=== PATIENT | female | born 1955 | race Caucasian/White ===

== ENCOUNTER → 2020-02-01 09:53 | Outpatient (BNVA) | payer MEDICARE, MEDICAID, SELFPAY | PROVIDERS: Visit Provider Nurse Practitioner Family | DX: E04.9 Nontoxic goiter, unspecified (principal); E03.9 Hypothyroidism, unspecified; E11.9 Type 2 diabetes mellitus without complications; Z79.4 Long term (current) use of insulin; E55.9 Vitamin D deficiency, unspecified; M25.562 Pain in left knee | CPT/HCPCS: 81001; 82306; 83036 ==

== ENCOUNTER 2020-03-18 09:18 | Outpatient (CLI) | payer MEDICARE, MEDICAID, SELFPAY ==
--- NOTE | 2020-03-18 09:30 | US_ITS ---
WS: [id number] THYROID ULTRASOUND REASON FOR EXAM: thyroid goiter TECHNIQUE: Grayscale and Doppler ultrasound examination of the thyroid gland. FINDINGS: RIGHT: Right thyroid gland measures 5.7 cm x 2.4 cm x 2.5 cm. Right thyroid volume equals 18.1 ccm3. Promine nt cyst is seen in the mid right lobe measures 0.71 x 0.39 x 0.84 cm. A coarse echo texture is noted. A hypoechoic lesion is seen along the inferior pole of the right thyroid measured 0.51 x 5.47 x 0.67 cm LEFT: Left thyroid gland measures 5.6 cm x 1.9 cm x 1.8 cm. Left thyroid volume equals 10.0 ccm3. A solid m ass is seen measured 1.29 x 0.27 x 1.04 cm this lesion appears to be well marginated. Thyroid isthmus: 0.5 mm. US/US thyroid [id number] IMPRESSION: Hyperechoic right left lobe and isthmus. These findings suggest Carmen's dis ease and thyroid antibodies recommended. There is a cyst seen in the right lobe and a adenoma also seen along the inferi or right lobe The left lobe shows the hyperechoic lesion most likely an adenoma well marginat ed and appears to be benign at this time.
== END 2020-03-18 09:19 | disposition home or self-care (01) ==
LOC: US 09:19
PROVIDERS: Family Provider Nurse Practitioner Family; Visit Provider Nurse Practitioner Family
DX: E04.9 Nontoxic goiter, unspecified (principal); E04.1 Nontoxic single thyroid nodule
CPT/HCPCS: 76536

== ENCOUNTER → 2020-04-08 11:32 | Outpatient (BNVA) | payer MEDICARE, MEDICAID, SELFPAY | PROVIDERS: Family Provider Nurse Practitioner Family; Visit Provider Nurse Practitioner Family | DX: E03.9 Hypothyroidism, unspecified (principal); E04.1 Nontoxic single thyroid nodule | CPT/HCPCS: 84439; 84443; 84481; 86376 ==

== ENCOUNTER 2020-04-18 06:00 | Outpatient (RCR) | payer MEDICARE, MEDICAID, SELFPAY | END 2020-05-03 23:59 | disposition home or self-care (01) | LOC: WPT 06:00 | PROVIDERS: Referring Provider Nurse Practitioner Family; Visit Provider Nurse Practitioner Family | DX: G89.29 Other chronic pain (principal); M25.569 Pain in unspecified knee; Z96.659 Presence of unspecified artificial knee joint; M19.90 Unspecified osteoarthritis, unspecified site | CPT/HCPCS: 97110; 97161 ==

== ENCOUNTER 2020-04-25 06:40 | Outpatient (CLI) | payer MEDICARE, MEDICAID, SELFPAY ==
--- NOTE | 2020-04-25 07:00 | US_ITS ---
WS: [id number] Complete ABDOMINAL ULTRASOUND HISTORY: abdominal pain and hernia COMPARISON: None available. Liver: 13.0 cm in length. Liver is normal size. Coarsened echotexture throughout. No mass or bile divya t dilatation. Gallbladder: Gallbladder has been removed. Pancreas: Limited visualization but unremarkable. CBD: 0.5 cm. Right kidney: 8.5 cm x 4.3 cm x 4.1 cm. No mass, cortical thickening or hydronephrosis. Left kidney: 9.1 cm x 4.7 cm x 4.1 cm. No mass, cortical thickening or hydronephrosis. Spleen: Normal size and echogenicity. Abdominal aorta and IVC are within normal limits. No ascites. US/US abdomen complete* [id number] IMPRESSION: 1. Prior cholecystectomy. 2. Mild hepatic steatosis.
== END 2020-04-25 06:41 | disposition home or self-care (01) ==
LOC: RAD 06:42
PROVIDERS: Visit Provider Nurse Practitioner Family
DX: R10.9 Unspecified abdominal pain (principal); K46.9 Unspecified abdominal hernia without obstruction or gangrene; K76.0 Fatty (change of) liver, not elsewhere classified
CPT/HCPCS: 76700

== ENCOUNTER → 2020-05-02 08:59 | Outpatient (BNVA) | payer MEDICARE, MEDICAID, SELFPAY | PROVIDERS: Visit Provider Nurse Practitioner Family | DX: E03.9 Hypothyroidism, unspecified (principal); I10 Essential (primary) hypertension; E78.2 Mixed hyperlipidemia; E11.9 Type 2 diabetes mellitus without complications; Z79.4 Long term (current) use of insulin; E55.9 Vitamin D deficiency, unspecified; L98.9 Disorder of the skin and subcutaneous tissue, unspecified; D49.2 Neoplasm of unspecified behavior of bone, soft tissue, and skin; L91.8 Other hypertrophic disorders of the skin | CPT/HCPCS: 36415; 80053; 80061; 81001; 82306; 83036; 84443; 85025 ==

== ENCOUNTER → 2020-05-07 10:45 | Outpatient (BNVA) | payer MEDICARE, MEDICAID, SELFPAY | PROVIDERS: Visit Provider Nurse Practitioner Family | DX: E11.9 Type 2 diabetes mellitus without complications (principal); Z79.4 Long term (current) use of insulin; R94.4 Abnormal results of kidney function studies; J30.89 Other allergic rhinitis | CPT/HCPCS: 80053; 81001; 82043 ==

== ENCOUNTER → 2020-05-15 08:41 | Outpatient (BNVA) | payer MEDICARE, MEDICAID, SELFPAY | PROVIDERS: Visit Provider Nurse Practitioner Family | DX: E11.9 Type 2 diabetes mellitus without complications (principal); Z79.4 Long term (current) use of insulin | CPT/HCPCS: 80053; 85025 ==

== ENCOUNTER 2020-07-30 15:16 | Emergency (ER) | payer MEDICARE, MEDICAID, SELFPAY ==
[2020-07-30 15:24] VITALS: BP 154/81; PULSE 77; RESP 14; TEMP 37; O2SAT 99; BMI 33.0
--- NOTE | 2020-07-30 15:34 | XR_ITS ---
WS: [id number] Exam: XR ribs LT mn 3V w CXR1V [id number] Date/Time of Exam: 07/30/2020 3:45 PM Reason For Exam: fall/trauma/pain Findings: There is a nondisplaced fracture of the lateral margin of the left fifth rib. No other acute rib frac tures are noted. The lungs are clear and fully inflated. Normal cardiomediastinal structures. XR/XR ribs LT mn 3V w CXR1V [id number] IMPRESSION: 1. Nondisplaced left fifth rib fracture. No pneumothorax.
--- NOTE | 2020-07-30 15:34 | XR_ITS ---
WS: [id number] Exam: XR shoulder LT min 2V* [id number] Date/Time of Exam: 07/30/2020 3:45 PM Reason For Exam: fall/trauma/pain No acute fracture or dislocation. Degenerative change and spurring at the AC joint. Normal soft tissu es. XR/XR shoulder LT min 2V* [id number] IMPRESSION: 1. No fracture or dislocation. 2. AC joint DJD.
--- NOTE | 2020-07-30 15:37 | XR_ITS ---
WS: [id number] Exam: XR hip LT 2-3V wo/w pel* [id number] Date/Time of Exam: 07/30/2020 3:45 PM Reason For Exam: fall/trauma/pain Findings: No fracture or dislocation. Moderate DJD of the joint compartmental narrowing. Hypertrophic bone form ation along the superior lateral acetabulum. Acetabular morphology might predispose the patient to fe moral acetabular impingement. XR/XR hip LT 2-3V wo/w pel* [id number] IMPRESSION: 1. Moderate degenerative change. No fracture or dislocation.
--- NOTE | 2020-07-30 16:03 | ED_ITS ---
HPI - Fall General: Chief Complaint: Fall Stated Complaint: FALL,N/V, RIB PAIN Time Seen by Provider: 07/30/20 15:33 History of Present Illness: HPI Narrative: 64-year-old female presents emergency room after falling yesterday. She tripped on the bumper and landed on her left side on the cement when she fell she did not strike her head she did not lose consciousness she did not strike any objects while she was falling. She presented to her primary care office and seen the nurse practitioner and there was concern for potential injury so she was referred to the emergency room. She has not really taken anything for this. Onset (ago): day(s) Fall from: standing Fall witnessed: yes, by bystander Place fall occurred: home Loss of consciousness: None Prolonged down time: no Symptoms prior to fall: none Context: tripped/slipped Location of injury: chest and pelvis (L hip) Location of injury - extremities: Left: shoulder Severity: moderate Associated symptoms-after fall: Reports chest pain (Pain with palpation and deep inspiration on the left lateral ribs); Denies abdominal pain, confusion, difficulty walking, headache(s), hematuria, lightheadedness, neck pain, numbness, short of breath, vertigo, weakness or other Review of Systems Const: Denies: fever(s), chills, body aches, change in appetite, fatigue or malaise ENMT: Denies: throat pain, ear or mastoid pain, nasal discharge or nasal congestion Card: Reports: chest pain (Pain with palpation and deep inspiration on the left lateral ribs); Denies: lightheadedness Resp: Denies: dyspnea, productive cough or non-productive cough GI: Denies: abdominal pain : Denies: hematuria Musc: Denies: neck pain Skin/Breast: Denies: rash or pruritus Neuro: Denies: headache(s), difficulty walking, vertigo or confusion PFS ED PFSH: Medical History Abdominal pain Changing skin lesion right hand, cryotherapy twice at [facility], no pathology done 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 DM type 2 (diabetes mellitus, type 2) Environmental and seasonal allergies Essential (primary) hypertension Goiter Great toe amputee right foot, 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 History of cholelithiasis History of gallbladder disease Hypothyroid Mixed hyperlipidemia Nonalcoholic hepatosteatosis Osteoarthritis Steatosis of liver Thyroid nodule Vitamin D deficiency Surgical History History of appendectomy History of hysterectomy Social History Smoking and tobacco status: never smoked Second hand smoke exposure: No Smoking risk assessment/counseling performed?: No Alcohol intake: never Desire information about alcohol rehabilitation?: No Counseling given: No Desire information about substance/drug rehabilitation?: No Counseling given: No Physical Exam Const: COMMON NORMALS: no acute distress GENERAL APPEARANCE: cooperative and comfortable ORIENTATION/CONSCIOUSNESS: Yes awake, Yes oriented to person, Yes oriented to place and Yes oriented to time HENMT: COMMON NORMALS: normocephalic, atraumatic and hearing grossly normal bilaterally HEAD & SCALP: normocephalic and atraumatic Eye: COMMON NORMALS: Equal, round and reactive pupils present, EOMs intact bilaterally, conjunctivae normal and no scleral icterus CONJUNCTIVA: Yes conjunctivae normal PUPIL: Yes Equal, round and reactive pupils present Neck/C-Spine: COMMON NORMALS: full ROM, no lymphadenopathy, supple and no JVD Resp: COMMON NORMALS: normal respiratory effort, No retractions, No use of accessory muscles and clear to auscultation bilaterally AUSCULTATION: clear to auscultation bilaterally Cardio: COMMON NORMALS: no JVD, regular rate, regular rhythm and No murmurs present (Cardio) RATE: regular rate RHYTHM: regular rhythm GI: COMMON NORMALS: Soft to palpation and No hepatosplenomegaly present AUSCULTATION: Yes normoactive bowel sounds PALPATION: Yes Soft to palpation, No Tenderness to palpation present (GI), No Guarding due to palpation present (GI) and Yes No hepatosplenomegaly present Extremity: COMMON NORMALS: normal to inspection, capillary refill normal, no clubbing, cyanosis or edema, no calf tenderness and no pedal edema Neuro: SENSORIUM/ORIENTATION: Yes oriented to person, Yes oriented to place and Yes oriented to time Skin: COMMON NORMALS: no rashes or lesions noted GENERAL SKIN EXAM: no rashes or lesions noted Course Vital Signs: Vital signs: Vital Signs Temperature 98.6 F 07/30/20 15:24 Pulse Rate 74 07/30/20 17:39 Respiratory Rate 16 07/30/20 17:39 Blood Pressure 157/79 07/30/20 17:39 Pulse Oximetry 98 07/30/20 17:39 MDM - Fall MDM Narrative: Medical decision making narrative: Reviewed findings with the patient. We will discharge her home follow-up with her primary care doctor as needed can use ice on the left rib fracture as needed. Lab Data: Labs: Lab Results 07/30/20 07/30/20 Range/Units 10:29 10:29 WBC 5.5 (4.0-10.0) 10^3/ uL RBC 4.52 (4.1-5.3) 10^6/u L Hgb 12.2 (11.5-15.3) g/dL Hct 39.9 (37.0-47.0) % MCV 88.3 (81-99) fL MCH 27.0 L (28.0-34.0) pg MCHC 30.6 (30.0-36.0) g/dL RDW 13.5 (12.1-15.1) % Plt Count 226 (130-400) 10^3/c mm MPV 10.9 H (7.4-10.4) fL Neut % (Auto) 64.7 % Lymph % (Auto) 22.2 % [place] % (Auto) 9.0 % Eos % (Auto) 3.1 % Baso % (Auto) 0.6 % Neut # (Auto) 3.53 (1.8-7.7) 10^3/u L Lymph # (Auto) 1.2 (0.8-4.8) 10^3/u L [place] # (Auto) 0.5 (0.2-0.9) 10^3/u L Eos # (Auto) 0.2 (0.0-0.8) 10^3/u L Baso # (Auto) 0.0 (0.0-0.1) 10^3/u L Nucleated RBC % (a uto) 0 % Nucleated RBCs # 0.0 /100WBC Sodium 139 (136-145) mmol/L Potassium 3.8 (3.5-5.1) mmol/L Chloride 102 (98-107) mmol/L Carbon Dioxide 27 (22-29) mmol/L Anion Gap 13.8 (5-19) BUN 24 H (8-23) mg/dL Creatinine 1.3 H (0.5-0.9) mg/dL GFR Calculation 41.0 L (90-130) mL/min Glucose 152 H (65-115) mg/dL Calculated Osmolal ity 295 (285-295) mOsm/k g Calcium 8.9 (8.5-10.5) mg/dL Total Bilirubin 0.2 (0.15-1.2) mg/dL AST 19 (0-32) U/L ALT 21 (0-33) U/L Alkaline Phosphata se 104 (35-105) IU/L Total Protein 7.9 (6.6-8.7) g/dL Albumin 4.2 (3.5-5.2) g/dL Globulin 3.7 (1.3-4.6) g/dL Discharge Plan Discharge Patient Disposition: Home Clinical Impression: Left rib fracture, Fall, Trochanteric bursitis of left hip Condition: Stable Prescriptions: New hydrocodone-acetaminophen 5-325 mg tablet 1 tab PO Q6H PRN (Reason: pain) Qty: 10 RF: 0 diclofenac sodium 75 mg tablet,delayed release (DR/EC) 75 mg PO Q12H PRN (Reason: pain) Qty: 20 RF: 0 No Action pneumococcal 23-adrien ps vaccine 25 mcg/0.5 mL solution 0.5 ml IM ONCE Qty: 1 RF: 0 pneumoc 13-adrien conj-dip cr(PF) 0.5 mL syringe 0.5 ml IM ONCE Qty: 1 RF: 0 (DME) pen needle, diabetic 31 gauge x 5/16 needle See Rx Instructions ea .ROUTE .MEDSUPPLY Qty: 1,200 RF: 0 diclofenac sodium 1 % gel TOPICAL RF: 0 valacyclovir 1 gram tablet 1,000 mg PO DAILY PRN (Reason: fever blister) 30 Days Qty: 30 RF: 3 pantoprazole 40 mg tablet,delayed release (DR/EC) 40 mg PO DAILY Qty: 30 RF: 1 lovastatin 20 mg tablet 20 mg PO DAILY Qty: 30 RF: 2 Tresiba FlexTouch U-200 200 unit/mL (3 mL) insulin pen 15 unit SUBCUT DAILY Qty: 9 RF: 0 (DME) blood sugar diagnostic [Blood Glucose Test] Strip See Rx Instructions .ROUTE .MEDSUPPLY Qty: 100 RF: 0 cetirizine 10 mg tablet 10 mg PO DAILY Qty: 30 RF: 2 levothyroxine 50 mcg tablet 25 mcg PO DAILY Qty: 15 RF: 2 cholecalciferol (vitamin D3) 1,250 mcg (50,000 unit) capsule 50,000 unit PO .weekly 90 Days Qty: 12 RF: 1 nystatin 100,000 unit/gram powder 1 applic TOPICAL BID Qty: 60 RF: 2 lisinopril 40 mg tablet 40 mg PO DAILY Qty: 30 RF: 2 furosemide 20 mg tablet 20 mg PO DAILY Qty: 30 RF: 2 hydrochlorothiazide 25 mg tablet 25 mg PO DAILY Qty: 30 RF: 2 (DME) pen needle, diabetic [BD Ultra-Fine Short Pen Needle] 31 gauge x 5/16 needle See Rx Instructions .ROUTE .MEDSUPPLY Qty: 100 RF: 0 montelukast [Singulair] 10 mg tablet 10 mg PO DAILY 30 Days Qty: 30 RF: 1 sitagliptin 100 mg tablet 100 mg PO DAILY Qty: 30 RF: 2 doxycycline monohydrate 100 mg capsule 100 mg PO BID 14 Days Qty: 28 RF: 0 Jardiance 10 mg tablet 10 mg PO DAILY 30 Days Qty: 30 RF: 1 Discharge Orders: Discharge Order (Routine); Ordered 07/30/20 Ordered By: Alvarado Pelayo Discharge Diet: Usual diet Discharge Activity: Increase activity as tolerated Discharge Date/Time: 07/30/20 17:41 Coding Level of Care Code ED Electric Hoist Operator for Chg Fwd Exam Comprehensive
[2020-07-30 16:26] LABS: Basophils % 0.6 %; Eosinophils # 0.2 10^3/uL (0.0-0.8); Eosinophils % 3.1 %; Hematocrit 39.9 % (37.0-47.0); Hemoglobin 12.2 g/dL (11.5-15.3); Lymphocytes # 1.2 10^3/uL (0.8-4.8); Lymphocytes % 22.2 %; Mean Corpuscular HGB Conc 30.6 g/dL (30.0-36.0); Mean Corpuscular Volume 88.3 fL (81-99); Mean Platelet Volume 10.9 fL (7.4-10.4); Monocytes # 0.5 10^3/uL (0.2-0.9); Neutrophils # 3.53 10^3/uL (1.8-7.7); Neutrophils % 64.7 %; Nucleated Red Blood Cells % 0 %; Platelet Count 226 10^3/cmm (130-400); Red Blood Count 4.52 10^6/uL (4.1-5.3); Red Cell Distribution Width 13.5 % (12.1-15.1); White Blood Count 5.5 10^3/uL (4.0-10.0)
[2020-07-30 16:45] LABS: Alanine Aminotransferase 21 U/L (0-33); Albumin Level 4.2 g/dL (3.5-5.2); Alkaline Phosphatase 104 IU/L (35-105); Anion Gap 13.8 (5-19); Aspartate Amino Transferase 19 U/L (0-32); Blood Urea Nitrogen 24 mg/dL (8-23); Calcium 8.9 mg/dL (8.5-10.5); Carbon Dioxide 27 mmol/L (22-29); Chloride 102 mmol/L (98-107); Globulin 3.7 g/dL (1.3-4.6); Glucose 152 mg/dL (65-115); Osmolality Calculated 295 mOsm/kg (285-295); Potassium 3.8 mmol/L (3.5-5.1); Sodium 139 mmol/L (136-145); Total Bilirubin 0.2 mg/dL (0.15-1.2); Total Protein 7.9 g/dL (6.6-8.7)
[2020-07-30 17:39] VITALS: BP 157/79; PULSE 74; RESP 16; O2SAT 98
== END 2020-07-30 17:41 | disposition home or self-care (01) ==
PROVIDERS: Emergency Provider Family Medicine
DX: S22.32XA Fracture of one rib, left side, initial encounter for closed fracture (principal); M70.62 Trochanteric bursitis, left hip; Z79.4 Long term (current) use of insulin; E11.9 Type 2 diabetes mellitus without complications; I10 Essential (primary) hypertension; E78.2 Mixed hyperlipidemia; W01.0XXA Fall on same level from slipping, tripping and stumbling without subsequent striking against object, initial encounter
CPT/HCPCS: 12345; 71101; 73030; 73502; 80053; 85025; 99282; 99283

== ENCOUNTER → 2020-09-06 11:48 | Outpatient (BNVA) | payer MEDICARE, MEDICAID, SELFPAY | PROVIDERS: Visit Provider Nurse Practitioner Family | DX: I10 Essential (primary) hypertension (principal); E03.9 Hypothyroidism, unspecified; E11.9 Type 2 diabetes mellitus without complications; E55.9 Vitamin D deficiency, unspecified; Z79.4 Long term (current) use of insulin | CPT/HCPCS: 80053; 82306; 83036; 84443 ==

== ENCOUNTER → 2020-12-13 00:01 | Outpatient (BNVA) | payer MEDICARE, MEDICAID, SELFPAY | PROVIDERS: Visit Provider Nurse Practitioner Family | DX: E11.9 Type 2 diabetes mellitus without complications (principal); I10 Essential (primary) hypertension; Z79.4 Long term (current) use of insulin | CPT/HCPCS: 80053; 83036; 85025 ==

== ENCOUNTER → 2021-01-09 14:21 | Outpatient (BNVA) | payer MEDICARE, MEDICAID, SELFPAY | PROVIDERS: PCP Nurse Practitioner Family; Referring Provider Nurse Practitioner Family; Visit Provider Nurse Practitioner Family | DX: R39.11 Hesitancy of micturition (principal); N39.8 Other specified disorders of urinary system; R39.13 Splitting of urinary stream | CPT/HCPCS: 81003 ==

== ENCOUNTER → 2021-03-18 16:16 | Outpatient (BNVA) | payer MEDICARE, MEDICAID, SELFPAY | PROVIDERS: PCP Nurse Practitioner Family; Visit Provider Nurse Practitioner Family | DX: M54.9 Dorsalgia, unspecified (principal); E11.8 Type 2 diabetes mellitus with unspecified complications; M79.10 Myalgia, unspecified site; E11.9 Type 2 diabetes mellitus without complications; E04.1 Nontoxic single thyroid nodule; H66.90 Otitis media, unspecified, unspecified ear; Z79.4 Long term (current) use of insulin; K59.04 Chronic idiopathic constipation | CPT/HCPCS: 80053; 81003; 83735 ==

== ENCOUNTER 2021-03-21 10:46 | Outpatient (CLI) | payer MEDICARE, MEDICAID, SELFPAY ==
--- NOTE | 2021-03-21 11:47 | XR_ITS ---
WS: [id number] Exam: XR lumbar spine 6V w f/e [id number] Date/Time of Exam: 03/21/2021 11:55 AM Reason For Exam: M54.9 - Dorsalgia, unspecified No fracture or dislocation. Disc spaces are relatively well maintained. Mild facet DJD at all levels. Posterior elements are otherwise intact. Slight levoscoliosis. DJD of the SI joints. XR/XR lumbar spine 6V w f/e [id number] IMPRESSION: 1. Mild degenerative changes and slight scoliosis. 2. No fracture or malalignment.
--- NOTE | 2021-03-21 11:47 | XR_ITS ---
WS: [id number] Exam: XR thoracic spine 3V* [id number] Date/Time of Exam: 03/21/2021 11:55 AM Reason For Exam: E11.8 - Type 2 diabetes mellitus with unspecified complic... No fracture or dislocation. Minimal spondylosis. Slightly increased thoracic kyphosis. Minimal dextro scoliosis. Normal paraspinal soft tissues. XR/XR thoracic spine 3V* [id number] IMPRESSION: 1. Mild degenerative changes and slight scoliosis. 2. No fracture or malalignment.
--- NOTE | 2021-03-21 12:00 | MM_ITS ---
WS: [id number] SCREENING DIGITAL MAMMOGRAM WITH CAD HISTORY: Z12.31 - Encounter for screening mammogram for malignant neoplasm of breast COMPARISON: 02/29/2020 and 12/21/2018 Bilateral CC and MLO views submitted. Computer aided detection analyzed. Breast composition: There are scattered areas of fibroglandular density. No suspicious masses, microc alcifications or architectural distortion. MM/[place] [id number] IMPRESSION: BI-RADS: 1-Negative FOLLOW UP: 1 Year Follow-up
== END 2021-03-21 10:47 | disposition home or self-care (01) ==
PROVIDERS: PCP Nurse Practitioner Family; Visit Provider Nurse Practitioner Family
DX: Z12.31 Encounter for screening mammogram for malignant neoplasm of breast (principal); E11.8 Type 2 diabetes mellitus with unspecified complications; M54.5 Low back pain; M54.6 Pain in thoracic spine
CPT/HCPCS: 72072; 72114; 77067

== ENCOUNTER → 2021-05-02 11:27 | Outpatient (BNVA) | payer MEDICARE, MEDICAID, SELFPAY | PROVIDERS: PCP Nurse Practitioner Family; Referring Provider Nurse Practitioner Family; Visit Provider Podiatrist Foot & Ankle Surgery | DX: Z89.419 Acquired absence of unspecified great toe (principal); M19.079 Primary osteoarthritis, unspecified ankle and foot; L30.9 Dermatitis, unspecified | CPT/HCPCS: 73630 ==

== ENCOUNTER → 2021-05-09 11:17 | Outpatient (BNVA) | payer MEDICARE, MEDICAID, SELFPAY | PROVIDERS: PCP Nurse Practitioner Family; Visit Provider Nurse Practitioner Family | DX: E11.9 Type 2 diabetes mellitus without complications (principal); I10 Essential (primary) hypertension; Z79.4 Long term (current) use of insulin; E03.9 Hypothyroidism, unspecified; E04.9 Nontoxic goiter, unspecified; E78.2 Mixed hyperlipidemia | CPT/HCPCS: 36415; 80053; 80061; 81003; 83036; 84443; 85025 ==

== ENCOUNTER → 2021-05-22 11:35 | Outpatient (BNVA) | payer MEDICARE, MEDICAID, SELFPAY | PROVIDERS: PCP Nurse Practitioner Family; Visit Provider Nurse Practitioner Family | DX: E55.9 Vitamin D deficiency, unspecified (principal); M54.9 Dorsalgia, unspecified; M51.34 Other intervertebral disc degeneration, thoracic region; L73.2 Hidradenitis suppurativa; D64.9 Anemia, unspecified | CPT/HCPCS: 82306 ==

== ENCOUNTER → 2021-05-23 11:23 | Outpatient (BNVA) | payer MEDICARE, MEDICAID, SELFPAY | PROVIDERS: PCP Nurse Practitioner Family; Visit Provider Nurse Practitioner Family | DX: M54.9 Dorsalgia, unspecified (principal); E55.9 Vitamin D deficiency, unspecified; M51.34 Other intervertebral disc degeneration, thoracic region; L73.2 Hidradenitis suppurativa; D64.9 Anemia, unspecified | CPT/HCPCS: 82728; 83550 ==

== ENCOUNTER 2021-06-30 14:18 | Outpatient (CLI) | payer MEDICARE, MEDICAID, SELFPAY ==
--- NOTE | 2021-06-30 14:15 | USCV_ITS ---
Anusha Saha Age: 65 Gender: F : 1955 Exam Date: 06/30/2021 14:36 Ordering Phys: Tomasz Villanueva DPM Technologist: [place] [facility] [place]: CIRCULATION RIGHT LEFT Brachial 133.00 mmHg Brachial 137.00 mmHg Pressure (mmHg) Waveform Pressure (mmHg) Waveform 162.00 Above Knee 196.00 163.00 Below Knee 194.00 169.00 DRUG ENFORCEMENT ADMINISTRATION AGENT 164.00 134.00 DPA 155.00 1.23 Ankle/Brachial Index 1.20 77.00 Pre-Exercise Toe Pressure 125.00 0.56 Pre-Exercise Toe/Brachial Index 0.91 FINDINGS Normal resting ABIs bilaterally Slightly diminished resting TBI on the right side Normal TBI on the left side PVR waveforms showing blunting of the dicrotic notch CONCLUSIONS 1. Features of mild peripheral artery disease on the right side possibly involving the distal vessels 2. No significant arterial obstruction on the left side Dr Regina Torres MD [facility] (Electronically Signed) Final Date: 01 July 2021 19:12 S
== END 2021-06-30 14:19 | disposition home or self-care (01) ==
LOC: US 14:21
PROVIDERS: PCP Nurse Practitioner Family; Visit Provider Podiatrist Foot & Ankle Surgery
DX: R09.89 Other specified symptoms and signs involving the circulatory and respiratory systems
CPT/HCPCS: 93923

== ENCOUNTER → 2021-12-01 16:34 | Outpatient (BNVA) | payer MEDICARE, MEDICAID, SELFPAY | PROVIDERS: PCP Nurse Practitioner Family; Visit Provider Internal Medicine Nephrology | DX: N18.9 Chronic kidney disease, unspecified (principal) | CPT/HCPCS: 36415; 80069; 82306; 82310; 82570; 83970; 84156; 85025 ==

== ENCOUNTER → 2021-12-03 10:11 | Outpatient (BNVA) | payer MEDICARE, MEDICAID, SELFPAY | PROVIDERS: PCP Nurse Practitioner Family; Visit Provider Nurse Practitioner Family | DX: B35.1 Tinea unguium (principal); E78.2 Mixed hyperlipidemia; E04.1 Nontoxic single thyroid nodule; E03.9 Hypothyroidism, unspecified; E11.9 Type 2 diabetes mellitus without complications | CPT/HCPCS: 80061; 83036; 84443 ==

== ENCOUNTER 2022-02-24 11:02 | Outpatient (CLI) | payer MEDICARE, MEDICAID, SELFPAY | END 2022-02-24 11:03 | disposition home or self-care (01) | LOC: SPT 11:04 | PROVIDERS: PCP Nurse Practitioner Family; Visit Provider Podiatrist Foot & Ankle Surgery | DX: Z46.89 Encounter for fitting and adjustment of other specified devices (principal); M25.569 Pain in unspecified knee; G89.29 Other chronic pain; Z96.659 Presence of unspecified artificial knee joint; E11.9 Type 2 diabetes mellitus without complications; Z79.4 Long term (current) use of insulin; Z89.419 Acquired absence of unspecified great toe; M21.40 Flat foot [pes planus] (acquired), unspecified foot | CPT/HCPCS: 97760; L3030 ==

== ENCOUNTER → 2022-03-25 10:09 | Outpatient (BNVA) | payer MEDICARE, MEDICAID, SELFPAY | PROVIDERS: PCP Nurse Practitioner Family; Visit Provider Family Medicine | DX: E87.6 Hypokalemia (principal) | CPT/HCPCS: 80048 ==

== ENCOUNTER 2022-04-13 07:49 | Outpatient (CLI) | payer MEDICARE, MEDICAID, SELFPAY ==
--- NOTE | 2022-04-13 07:54 | MM_ITS ---
WS: [id number] BILATERAL SCREENING DIGITAL BREAST TOMOSYNTHESIS MAMMOGRAM WITH CAD HISTORY: SCREENING COMPARISON: 03/21/2021, 02/29/2020 Bilateral CC and MLO views with tomosynthesis and synthetic mammography submitted. Computer aided det ection analyzed. Breast composition: There are scattered areas of fibroglandular density. No suspicious masses, microc alcifications or architectural distortion. MM/[place] [id number] IMPRESSION: BI-RADS: 1-Negative FOLLOW UP: 1 Year Follow-up
== END 2022-04-13 07:50 | disposition home or self-care (01) ==
LOC: RAD 07:51
PROVIDERS: PCP Nurse Practitioner; Visit Provider Nurse Practitioner
DX: Z12.31 Encounter for screening mammogram for malignant neoplasm of breast (principal)
CPT/HCPCS: 77063; 77067

== ENCOUNTER → 2022-04-14 16:33 | Outpatient (BNVA) | payer MEDICARE, MEDICAID, SELFPAY | PROVIDERS: PCP Nurse Practitioner; Visit Provider Nurse Practitioner | DX: R30.0 Dysuria (principal); J01.90 Acute sinusitis, unspecified; B96.89 Other specified bacterial agents as the cause of diseases classified elsewhere; N39.0 Urinary tract infection, site not specified; M54.30 Sciatica, unspecified side | CPT/HCPCS: 81000 ==

== ENCOUNTER → 2022-04-27 08:58 | Outpatient (BNVA) | payer MEDICARE, MEDICAID, SELFPAY | PROVIDERS: PCP Nurse Practitioner; Visit Provider Internal Medicine | DX: E11.65 Type 2 diabetes mellitus with hyperglycemia (principal); E11.22 Type 2 diabetes mellitus with diabetic chronic kidney disease; I10 Essential (primary) hypertension; E78.2 Mixed hyperlipidemia; Z78.0 Asymptomatic menopausal state | CPT/HCPCS: 80048; 82043; 83036; 83721; 84443; 84460 ==

== ENCOUNTER → 2022-08-03 08:15 | Outpatient (BNVA) | payer MEDICARE, MEDICAID, SELFPAY | PROVIDERS: PCP Nurse Practitioner; Visit Provider Nurse Practitioner | DX: E03.9 Hypothyroidism, unspecified (principal); E04.1 Nontoxic single thyroid nodule; I10 Essential (primary) hypertension; E11.9 Type 2 diabetes mellitus without complications; E11.8 Type 2 diabetes mellitus with unspecified complications; E78.2 Mixed hyperlipidemia | CPT/HCPCS: 80048; 82043; 83036; 83721; 84443; 84460 ==

== ENCOUNTER → 2022-11-20 11:02 | Outpatient (BNVA) | payer MEDICARE, MEDICAID, SELFPAY | PROVIDERS: PCP Nurse Practitioner; Visit Provider Nurse Practitioner | DX: E03.9 Hypothyroidism, unspecified (principal); E04.1 Nontoxic single thyroid nodule; E11.9 Type 2 diabetes mellitus without complications; E78.2 Mixed hyperlipidemia; E55.9 Vitamin D deficiency, unspecified; K76.0 Fatty (change of) liver, not elsewhere classified; I10 Essential (primary) hypertension; Z79.4 Long term (current) use of insulin | CPT/HCPCS: 80053; 80069; 82043; 82306; 82542; 83036; 83721; 84443; 85025 ==

== ENCOUNTER → 2023-04-05 12:20 | Outpatient (BNVA) | payer MEDICARE, MEDICAID, SELFPAY | PROVIDERS: PCP Nurse Practitioner; Visit Provider Nurse Practitioner | DX: R35.89 Other polyuria (principal) | CPT/HCPCS: 81000 ==

== ENCOUNTER 2023-04-27 10:08 | Outpatient (CLI) | payer MEDICARE, MEDICAID, SELFPAY ==
--- NOTE | 2023-04-27 10:19 | MM_ITS ---
WS: [id number] SCREENING DIGITAL TOMOSYNTHESIS MAMMOGRAM WITH CAD HISTORY: SCREENING COMPARISON: 04/13/2022 1 03/21/2021 Bilateral CC and MLO with tomosynthesis views submitted. Synthetic mammography reviewed. Computer aid ed detection analyzed. Breast composition: There are scattered areas of fibroglandular density. No suspicious masses, microc alcifications or architectural distortion. MM/[place] [id number] IMPRESSION: BI-RADS: 1-Negative FOLLOW UP: 1 Year Follow-up
== END 2023-04-27 10:09 | disposition home or self-care (01) ==
LOC: RAD 10:13 → MOBLMAM 10:18
PROVIDERS: PCP Nurse Practitioner; Visit Provider Nurse Practitioner
DX: Z12.31 Encounter for screening mammogram for malignant neoplasm of breast (principal)
CPT/HCPCS: 77063; 77067

== ENCOUNTER → 2023-05-19 09:03 | Outpatient (BNVA) | payer MEDICARE, MEDICAID, SELFPAY | PROVIDERS: PCP Nurse Practitioner; Visit Provider Nurse Practitioner | DX: E11.9 Type 2 diabetes mellitus without complications (principal) | CPT/HCPCS: 80053; 80061; 81000; 83036; 85025 ==

== ENCOUNTER 2023-05-24 11:35 | Emergency (ER) | payer MEDICARE, MEDICAID, SELFPAY ==
[2023-05-24 12:03] VITALS: BMI 31.8
[2023-05-24 12:06] VITALS: BP 109/74; PULSE 89; RESP 16; TEMP 36.8; O2SAT 97
--- NOTE | 2023-05-24 12:22 | W.ED.FALL ---
HPI - Fall General: Chief Complaint: Fall Stated Complaint: fell on left hip and lower back Time Seen by Provider: 05/24/23 12:06 Source: patient Mode of arrival: ambulatory Limitations: no limitations History of Present Illness: Patient is a 67-year-old female who presents to the emergency department due to fall earlier today while at school. 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 She reports pain in the left hip, left ankle, and lower back. She notes immediate onset of pain which has been constant since onset. She denies any bruising, numbness, weakness, swelling, or any erythema. She denies taking anything for her pain. Her pain is worsened with ambulating and movement, and she notes that she can feel the pain at rest. She states that she ambulated into the emergency department today, though with a limp. She did not hit her head when she fell, and denies injuries or pain in any other joints. MD complaint: fall Onset (ago): hour(s) Fall from: standing Fall witnessed: yes, by bystander Place fall occurred: school Loss of consciousness: None Prolonged down time: no Symptoms prior to fall: none Context: tripped/slipped Location of injury: back Location of injury - extremities: Left: ankle Severity: severe Severity scale (1-10): 8 Associated symptoms-after fall: Denies abdominal pain, chest pain, difficulty walking, headache(s), lightheadedness or neck pain Review of Systems Const: Denies: fever(s) or chills Card: Denies: chest pain, palpitations, irregular heart rhythm, lightheadedness, syncope or dyspnea on exertion Resp: Denies: dyspnea, productive cough or pain on inspiration GI: Denies: abdominal pain, nausea, vomiting, heartburn or diarrhea : Denies: dysuria Musc: Reports: back pain and joint pain (Left hip, left ankle); Denies: neck pain, extremity pain, extremity swelling, joint swelling, joint warmth or limited range of motion Skin/Breast: Denies: rash Neuro: Denies: headache(s), numbness in extremities, weakness in extremities, sensory changes or difficulty walking PFS ED PFSH: Medical History Abdominal pain Acute bacterial sinusitis Allergic reaction Back pain Breast cancer screening by mammogram Changing skin lesion right hand, cryotherapy twice at [facility], no pathology done Chronic ear infection Chronic idiopathic constipation 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 Diabetic foot DM type 2 (diabetes mellitus, type 2) Encounter for annual wellness exam in Medicare patient Encounter for change or removal of drains Environmental and seasonal allergies Essential (primary) hypertension Fever blister Fungal nail infection Goiter Great toe amputee right foot, 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 Hidradenitis suppurativa History of cholelithiasis History of gallbladder disease Hyponatremia Hypothyroid Injury of knee, right Intermittent urinary stream Intertrigo Mixed hyperlipidemia Muscle ache Nonalcoholic hepatosteatosis Onychomycosis Osteoarthritis Sinusitis, acute maxillary Steatosis of liver Thoracic degenerative disc disease Thyroid nodule Urinary hesitancy Vitamin D deficiency Voiding dysfunction Surgical History History of appendectomy History of hysterectomy Family History Mother Diabetes Stroke Father , IN HIS EARLY 80'S Cancer UNKNOWN CANCER Sister , PANCREATIC Cancer OTHER SISTER HAD LUNG AND THROAT CANCER STILL LIVING Social History Smoking and tobacco status: never smoked Second hand smoke exposure: No Smoking risk assessment/counseling performed?: No Alcohol intake: never Desire information about alcohol rehabilitation?: No Counseling given: No Substance/Drug Use: never Desire information about substance/drug rehabilitation?: No Counseling given: No Physical Exam Const: COMMON NORMALS: no acute distress, average body habitus, patient oriented x3, no limitations, alert and well nourished GENERAL APPEARANCE: cooperative and comfortable ORIENTATION/CONSCIOUSNESS: Yes awake, Yes oriented to person, Yes oriented to place and Yes oriented to time HENMT: COMMON NORMALS: normocephalic and atraumatic HEAD & SCALP: normal to inspection, normocephalic and atraumatic Neck/C-Spine: COMMON NORMALS: full ROM, no lymphadenopathy, supple and no meningeal signs Chest: COMMONS NORMALS: normal inspection of the chest and normal palpation of entire chest wall Resp: COMMON NORMALS: normal respiratory effort and clear to auscultation bilaterally AUSCULTATION: clear to auscultation bilaterally Cardio: COMMON NORMALS: regular rate and regular rhythm RATE: regular rate RHYTHM: regular rhythm : COMMON NORMALS: Yes no CVA tenderness BLADDER/KIDNEY EXAM: Yes no CVA tenderness Back/Pelvis: COMMON NORMALS: no CVA tenderness, thoracic and lumbar spine normal to inspection and thoraco-lumbar ROM normal THORACIC SPINE/UPPER BACK: No thoracic spinal tenderness, No paraspinal muscle tenderness and No paraspinal muscle spasm LUMBAR SPINE/LOWER BACK: Yes lumbar spinal tenderness, No paraspinal muscle tenderness, No paraspinal muscle spasm and Yes straight leg raise negative bilaterally PELVIS: Yes buttock abnormal Buttock abnormal laterality: left Left buttock abnormal details: tenderness and No sciatic notch tenderness SACROILIAC JOINTS: Yes SI joints normal SACRUM: tenderness COCCYX: no tenderness Extremity: COMMON NORMALS: normal to inspection, full ROM, capillary refill normal, no joint enlargement, no clubbing, cyanosis or edema, no calf tenderness and no pedal edema LEFT LOWER EXTREMITY: Yes hip joint Left hip: Yes inspection (No bruising or edema. No shortening or rotation of the hip), Yes palpation (Tenderness to palpation of the posteriolateral hip), Yes ROM (Normal range of motion) and Yes neurovascular exam (Neurovascularly intact) and Yes ankle joint Left ankle: Yes inspection (No bruising, erythema, deformity, or edema; small lateral abrasion), Yes palpation (Tender to palpation over the lateral malleolus), Yes ROM (Normal range of motion) and Yes neurovascular exam (Neurovascularly intact, DP/PT pulses intact) Neuro: COMMON NORMALS: patient oriented x3, moves all extremities, no focal motor deficits, no sensory deficits noted and gait normal SENSORIUM/ORIENTATION: Yes alert, Yes oriented to person, Yes oriented to place and Yes oriented to time MENINGEAL SIGNS: Yes no meningeal signs MOTOR EXAM: 5/5 motor strength present throughout Skin: COMMON NORMALS: no rashes or lesions noted GENERAL SKIN EXAM: no rashes or lesions noted TRAUMA: no lacerations Course Vital Signs: Vital signs: Vital Signs Temperature 98.2 F 05/24/23 12:06 Pulse Rate 89 05/24/23 12:06 Respiratory Rate 16 05/24/23 12:06 Blood Pressure 109/74 05/24/23 12:06 Pulse Oximetry 97 05/24/23 12:06 Oxygen Delivery Me thod Room Air 05/24/23 12:06 MDM - Fall Medical Decision Making XRs negative. Patient is ambulatory without difficulty or assistance. Discussed conservative therapies at home. Return ED precautions given. Otherwise she can follow-up with primary care in 1 to 2 weeks if pain does not seem to be improving. Lab Data Radiology Impressions Ankle X-Ray 05/24/23 12:52 IMPRESSION: No acute findings. Hip/Pelvis X-Ray 05/24/23 12:52 IMPRESSION: No acute findings. Lumbar Spine X-Ray 05/24/23 12:53 IMPRESSION: 1. No acute findings. 2. Mild lower lumbar spine degenerative changes. Sacrum and Coccyx X-Ray 05/24/23 12:53 IMPRESSION: No acute findings. Discharge Plan Discharge Patient Disposition: Home Clinical Impression: Fall from slip, trip, or stumble Qualifiers: Encounter type: initial encounter Qualified Code(s): W01.0XXA - Fall on same level from slipping, tripping and stumbling without subsequent striking against object, initial encounter Contusion of left hip Qualifiers: Encounter type: initial encounter Qualified Code(s): S70.02XA - Contusion of left hip, initial encounter Condition: Stable Prescriptions: No Action zinc 50 mg tablet 50 mg PO DAILY mecobalamin (vitamin B12) 5,000 mcg tablet,disintegrating 1,000 mcg PO DAILY ascorbic acid (vitamin C) 1,000 mg tablet 1,000 mg PO DAILY cholecalciferol (vitamin D3) 25 mcg (1,000 unit) capsule 25 mcg PO DAILY tamsulosin 0.4 mg capsule 0.4 mg PO .at bedtime Qty: 30 12RF hydroxyzine HCl 10 mg tablet 10 mg PO TID (DME) pen needle, diabetic 31 gauge x 5/16 needle See Rx Instructions .ROUTE .MEDSUPPLY Qty: 1,200 Rx Instructions: As directed diclofenac sodium 1 % gel 4 g topical QID Qty: 100 2RF Rx Instructions: apply to single knee, ankle, foot; for foot includes sole/toes/top of foot hydrocodone-acetaminophen 10-300 mg tablet 1 tab PO BID PRN Trulicity 0.75 mg/0.5 mL pen injector 0.75 mg SUBCUT .weekly cyclobenzaprine 10 mg tablet 10 mg PO BID PRN (Reason: muscle spasm) Qty: 7 0RF fluconazole [Diflucan] 150 mg tablet 150 mg PO Q3D 12 Days Qty: 4 0RF diclofenac sodium 1 % gel 2 g TOPICAL .four times daily Qty: 100 5RF cetirizine 10 mg tablet See Rx Instructions .ROUTE .COMPLEX Qty: 30 5RF Dose Instruction: TAKE 1 TABLET BY MOUTH EVERY DAY Rx Instructions: TAKE 1 TABLET BY MOUTH EVERY DAY OneTouch Ultra Test Strip See Rx Instructions .ROUTE .COMPLEX Qty: 100 0RF Dose Instruction: CHECK BLOOD SUGAR TWICE DAILY Rx Instructions: CHECK BLOOD SUGAR TWICE DAILY lovastatin 20 mg tablet See Rx Instructions .ROUTE .COMPLEX Qty: 90 0RF Dose Instruction: TAKE 1 TABLET BY MOUTH DAILY Rx Instructions: TAKE 1 TABLET BY MOUTH DAILY levothyroxine 50 mcg tablet See Rx Instructions .ROUTE .COMPLEX Qty: 90 0RF Dose Instruction: TAKE 1 TABLET BY MOUTH DAILY Rx Instructions: TAKE 1 TABLET BY MOUTH DAILY Tresiba FlexTouch U-200 200 unit/mL (3 mL) insulin pen See Rx Instructions .ROUTE .COMPLEX Qty: 27 0RF Dose Instruction: INJECT 60 UNITS UNDER THE SKIN DAILY Rx Instructions: INJECT 60 UNITS UNDER THE SKIN DAILY pen needle, diabetic [BD Ultra-Fine Short Pen Needle] 31 gauge x 5/16 needle See Rx Instructions .ROUTE .COMPLEX Qty: 100 2RF Dose Instruction: USE DIRECTED Rx Instructions: USE DIRECTED ergocalciferol (vitamin D2) 1,250 mcg (50,000 unit) capsule See Rx Instructions .ROUTE .COMPLEX Qty: 12 0RF Dose Instruction: TAKE 1 CAPSULE BY MOUTH WEEKLY Rx Instructions: TAKE 1 CAPSULE BY MOUTH WEEKLY pantoprazole 40 mg tablet,delayed release (DR/EC) See Rx Instructions .ROUTE .COMPLEX Qty: 90 0RF Dose Instruction: TAKE 1 TABLET BY MOUTH DAILY Rx Instructions: TAKE 1 TABLET BY MOUTH DAILY potassium chloride 10 mEq tablet extended release 10 meq PO DAILY Qty: 90 3RF montelukast 10 mg tablet See Rx Instructions .ROUTE .COMPLEX Qty: 90 1RF Dose Instruction: TAKE 1 TABLET BY MOUTH DAILY Rx Instructions: TAKE 1 TABLET BY MOUTH DAILY Jardiance 25 mg tablet See Rx Instructions .ROUTE .COMPLEX Qty: 90 1RF Dose Instruction: TAKE 1 TABLET BY MOUTH DAILY Rx Instructions: TAKE 1 TABLET BY MOUTH DAILY (DME) lancets [OneTouch Delica Plus Lancet] 30 gauge misc See Rx Instructions .ROUTE .COMPLEX Qty: 100 0RF Dose Instruction: USE DIRECTED Rx Instructions: USE DIRECTED Discharge Orders: Discharge ED (Routine); Ordered 05/24/23 Ordered By: Vanessa Aguilar Referrals: Genesis Barraza FNP [Primary Care Provider] - Patient Instructions: Contusion Activity Restrictions/Additional Instructions: As we discussed your x-rays today are normal. You may use ice, heat, and [id number] pain medications as needed for any discomfort. Please follow-up with your primary care provider in 1 to 2 weeks if pain does not seem to be improving. Coding Level of Care Code ED Shuttle [employer] Supervisor for Mariela Carvalho
--- NOTE | 2023-05-24 12:52 | XRR_ITS ---
PROCEDURE INFORMATION: Exam: XR Left Ankle Exam date and time: 05/24/2023 1:11 PM Age: 67 years old Clinical indication: Injury or trauma; Fall; Blunt trauma; Ankle; Left; Additional info: Fall/trauma TECHNIQUE: Imaging protocol: Radiologic exam of the left ankle. Views: 3 or more views. COMPARISON: CR XR foot LT min 3V* [id number] 05/02/2021 11:34 AM FINDINGS: Bones/joints: No acute fracture or dislocation. Joints are maintained. Minimal spurring of the anterior tibial plafond. Posterior and plantar calcaneal enthesophytes. Soft tissues: Unremarkable. XR/XR ankle LT min 3V* [id number] IMPRESSION: No acute findings.
--- NOTE | 2023-05-24 12:52 | XRR_ITS ---
PROCEDURE INFORMATION: Exam: XR Left Hip Exam date and time: 05/24/2023 1:10 PM Age: 67 years old Clinical indication: Injury or trauma; Fall; Blunt trauma (contusions or hematomas); Left; Hip; Additional info: Fall/trauma/1 view pelvis too TECHNIQUE: Imaging protocol: Radiologic exam of the left hip. Views: 2 or 3 views hip with pelvis when performed. COMPARISON: 1. CR XR hip LT 2-3V wo/w pel* [id number] 07/30/2020 3:44 PM 2. CR XR sacrum coccyx min 2V [id number] 05/24/2023 1:06 PM 3. CR XR lumbar spine 2-3V* [id number] 05/24/2023 1:03 PM FINDINGS: Bones/joints: No acute fracture or dislocation. Mineralization is normal. Mild degenerative change. Soft tissues: Unremarkable. XR/XR hip LT 2-3V wo/w pel* [id number] IMPRESSION: No acute findings.
--- NOTE | 2023-05-24 12:53 | XRR_ITS ---
PROCEDURE INFORMATION: Exam: XR Lumbosacral Spine Exam date and time: 05/24/2023 1:03 PM Age: 67 years old Clinical indication: Injury or trauma; Fall; Blunt trauma (contusions or hematomas); Additional info: Fall/trauma TECHNIQUE: Imaging protocol: Radiologic exam of the lumbosacral spine. Views: 2 or 3 views. COMPARISON: CR XR lumbar spine 6V w f/e [id number] 03/21/2021 12:01 PM FINDINGS: Bones/joints: No acute fracture. Slight levoconvex curvature. No spondylolisthesis. Mild intervertebral disc space narrowing and osteophyte formation from L3-S1. Lower lumbar spine facet arthrosis. Soft tissues: Unremarkable. Intraperitoneal space: Right upper abdomen surgical clips. Vasculature: Mild aortoiliac atherosclerotic calcification. XR/XR lumbar spine 2-3V* [id number] IMPRESSION: 1. No acute findings. 2. Mild lower lumbar spine degenerative changes.
--- NOTE | 2023-05-24 12:53 | XRR_ITS ---
PROCEDURE INFORMATION: Exam: XR Sacrum and Coccyx, 2 or More Views Exam date and time: 05/24/2023 1:06 PM Age: 67 years old Clinical indication: Injury or trauma; Fall; Blunt trauma (contusions or hematomas); Additional info: Fall/trauma TECHNIQUE: Imaging protocol: XR of the sacrum and coccyx, 2 or more views. COMPARISON: 1. CR XR lumbar spine 2-3V* [id number] 05/24/2023 1:03 PM 2. CR XR hip LT 2-3V wo/w pel* [id number] 07/30/2020 3:44 PM 3. CR XR lumbar spine 6V w f/e [id number] 03/21/2021 12:01 PM FINDINGS: Bones/joints: No evidence of acute fracture. Suboptimal visualization of the coccyx from superimposed structures. Mild degenerative changes of the lower lumbar spine, sacroiliac joints, pubic symphysis, and hips. Soft tissues: Unremarkable. XR/XR sacrum coccyx min 2V [id number] IMPRESSION: No acute findings.
[2023-05-24] MEDS: acetaminophen 500 mg Tablet 1000 MG PO (13:41)
== END 2023-05-24 13:47 | disposition home or self-care (01) ==
PROVIDERS: Emergency Provider Physician Assistant; PCP Nurse Practitioner
DX: S70.02XA Contusion of left hip, initial encounter (principal); Z79.85 Long-term (current) use of injectable non-insulin antidiabetic drugs; Z79.4 Long term (current) use of insulin; W03.XXXA Other fall on same level due to collision with another person, initial encounter; Y92.219 Unspecified school as the place of occurrence of the external cause; Y99.0 Civilian activity done for income or pay; E11.9 Type 2 diabetes mellitus without complications; I10 Essential (primary) hypertension; E78.2 Mixed hyperlipidemia
CPT/HCPCS: 72100; 72220; 73502; 73610; 99284

== ENCOUNTER → 2023-05-27 15:04 | Outpatient (BNVA) | payer MEDICARE, MEDICAID, SELFPAY | PROVIDERS: PCP Nurse Practitioner; Visit Provider Nurse Practitioner Family | DX: M25.532 Pain in left wrist (principal); Z91.81 History of falling | CPT/HCPCS: 73110 ==

== ENCOUNTER → 2023-08-10 11:19 | Outpatient (BNVA) | payer MEDICARE, MEDICAID, SELFPAY | PROVIDERS: PCP Nurse Practitioner; Visit Provider Nurse Practitioner Family | DX: R11.2 Nausea with vomiting, unspecified (principal); K52.9 Noninfective gastroenteritis and colitis, unspecified | CPT/HCPCS: 80053; 81003; 85025 ==

== ENCOUNTER → 2023-09-03 08:56 | Outpatient (BNVA) | payer MEDICARE, MEDICAID, SELFPAY | PROVIDERS: PCP Nurse Practitioner; Visit Provider Nurse Practitioner Family | DX: E11.9 Type 2 diabetes mellitus without complications (principal); E78.2 Mixed hyperlipidemia | CPT/HCPCS: 80053; 80061; 81003; 83036; 85025 ==

== ENCOUNTER 2023-09-24 12:18 | Emergency (ER) | payer MEDICARE, MEDICAID, SELFPAY ==
[2023-09-24 12:28] VITALS: BP 124/84; PULSE 88; RESP 16; TEMP 36.6; O2SAT 96; BMI 30.1
[2023-09-24 13:14] LABS: Basophils # 0.1 10^3/uL (0.0-0.1); Basophils % 0.6 %; Eosinophils # 0.5 10^3/uL (0.0-0.8); Eosinophils % 5.6 %; Hematocrit 42.7 % (36-47); Lymphocytes # 1.9 10^3/uL (0.8-4.8); Lymphocytes % 22.1 %; Mean Corpuscular HGB Conc 31.6 g/dL (30-55); Mean Corpuscular Hemoglobin 28.2 pg (27-33); Mean Corpuscular Volume 89.3 fl (85-98); Mean Platelet Volume 10.5 fL (7.4-10.4); Monocytes # 0.7 10^3/uL (0.2-0.9); Monocytes % 8.6 %; Neutrophils # 5.27 10^3/uL (1.8-7.7); Neutrophils % 62.7 %; Nucleated Red Blood Cells % 0 %; Platelet Count 214 10^3/cmm (157-399); Red Blood Count 4.78 10^6/uL (3.85-5.65); Red Cell Distribution Width 13.9 % (12.1-15.1); White Blood Count 8.39 10^3/uL (3.29-11.43)
[2023-09-24 13:34] LABS: Alanine Aminotransferase 11 U/L (0-33); Alkaline Phosphatase 107 U/L (35-105); Aspartate Amino Transferase 12 U/L (0-32); Chloride 102 mmol/L (98-107); Globulin 3.7 g/dL (1.3-4.6); Glucose 114 mg/dL (65-115); Lipase 36 U/L (13-60); Potassium 4.1 mmol/L (3.5-5.1); Sodium 142 mmol/L (136-145); Total Protein 7.7 g/dL (6.6-8.7)
[2023-09-24 13:55] LABS: Blood Urea Nitrogen 16 mg/dL (8-23); Glomerular Filtration Rate 49.2 mL/min (90-130); Osmolality Calculated 296 mOsm/kg (285-295); Total Bilirubin 0.5 mg/dL (0.15-1.2)
--- NOTE | 2023-09-24 14:06 | W.ED.ABDPA2 ---
HPI - Abdominal Pain General: Chief Complaint: Abdominal Pain Stated Complaint: cramping, trouble going to the bathroom Time Seen by Provider: 09/24/23 14:05 Source: patient Mode of arrival: ambulatory History of Present Illness: 67-year-old female presents emergency room with complaint of abdominal pain patient states she had constipation for the last 4 days. Nausea and vomiting when she eats no hematochezia melena hematemesis cough cramps no recent antibiotics. No dysuria urgency or frequency MD elicited complaint: abdominal pain Associated Symptoms: Denies chills, dysuria and fever(s) Review of Systems Const: Denies: fever(s) or chills Card: Denies: chest pain Resp: Denies: dyspnea GI: Denies: abdominal pain : Denies: dysuria, urinary frequency or urinary urgency Musc: Denies: neck pain or back pain Skin/Breast: Denies: rash PFSH ED PFSH: Medical History Acute UTI Nausea & vomiting Gastroenteritis DDD (degenerative disc disease), cervical Cervical radiculopathy Hypokalemia Hyponatremia Encounter for change or removal of drains Allergic reaction Onychomycosis Thoracic degenerative disc disease Sinusitis, acute maxillary Chronic idiopathic constipation Muscle ache Chronic ear infection Back pain Fungal nail infection Intermittent urinary stream Urinary hesitancy Encounter for annual wellness exam in Medicare patient Diabetic foot Breast cancer screening by mammogram Voiding dysfunction Intertrigo Acute bacterial sinusitis Environmental and seasonal allergies Steatosis of liver Nonalcoholic hepatosteatosis Mixed hyperlipidemia Changing skin lesion right hand, cryotherapy twice at [facility], no pathology done Abdominal pain Thyroid nodule 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 Hidradenitis suppurativa Fever blister Injury of knee, right Vitamin D deficiency Hypothyroid Goiter Essential (primary) hypertension DM type 2 (diabetes mellitus, type 2) Osteoarthritis Great toe amputee right foot, 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 History of gallbladder disease History of cholelithiasis Surgical History History of hysterectomy History of appendectomy Family History Mother Diabetes Stroke Father , IN HIS EARLY 80'S Cancer UNKNOWN CANCER Sister , PANCREATIC Cancer OTHER SISTER HAD LUNG AND THROAT CANCER STILL LIVING Social History Smoking and tobacco/nicotine status: never used tobacco/nicotine Second hand smoke exposure: No Alcohol intake: never Substance/Drug Use: never Physical Exam Const: GENERAL APPEARANCE: cooperative and comfortable ORIENTATION/CONSCIOUSNESS: Yes awake, Yes oriented to person, Yes oriented to place and Yes oriented to time HENMT: COMMON NORMALS: normocephalic, atraumatic and hearing grossly normal bilaterally HEAD & SCALP: normocephalic and atraumatic Resp: COMMON NORMALS: normal respiratory effort, No retractions, No use of accessory muscles and clear to auscultation bilaterally AUSCULTATION: clear to auscultation bilaterally Cardio: COMMON NORMALS: regular rate, regular rhythm and No murmurs present (Cardio) RATE: regular rate RHYTHM: regular rhythm GI: COMMON NORMALS: No hepatosplenomegaly present AUSCULTATION: Yes normoactive bowel sounds PALPATION: Yes Tenderness to palpation present (GI) (Right side abdomen), No Guarding due to palpation present (GI) and Yes No hepatosplenomegaly present Extremity: COMMON NORMALS: normal to inspection, capillary refill normal, no clubbing, cyanosis or edema, no calf tenderness and no pedal edema Neuro: SENSORIUM/ORIENTATION: Yes oriented to person, Yes oriented to place and Yes oriented to time Skin: COMMON NORMALS: no rashes or lesions noted GENERAL SKIN EXAM: no rashes or lesions noted Course Vital Signs: Vital signs: Vital Signs Temperature 97.8 F 09/24/23 12:28 Pulse Rate 88 09/24/23 12:28 Respiratory Rate 16 09/24/23 12:28 Blood Pressure 124/84 09/24/23 12:28 Pulse Oximetry 96 09/24/23 12:28 Oxygen Delivery Me thod Room Air 09/24/23 12:28 MDM - Abdominal Pain Medical Decision Making Labs and imaging reviewed. Large amount of stool retained in the right hemicolon. Start lactulose 1 dose every 2 hours till desired results achieved. Return if is further problems. Medical Records I reviewed the patient's medical records. Lab Data I reviewed the patient's lab results. 09/24/23 12:58 09/24/23 12:58 Labs/Radiology: Laboratory Results WBC 8.39 10^3/uL (3.29-11.43) 09/24/23 12:58 RBC 4.78 10^6/uL (3.85-5.65) 09/24/23 12:58 Hgb 13.50 g/dL (11.27-16.99) 09/24/23 12:58 Hct 42.7 % (36-47) 09/24/23 12:58 MCV 89.3 fl (85-98) 09/24/23 12:58 MCH 28.2 pg (27-33) 09/24/23 12:58 MCHC 31.6 g/dL (30-55) 09/24/23 12:58 RDW 13.9 % (12.1-15.1) 09/24/23 12:58 Plt Count 214 10^3/cmm (157-399) 09/24/23 12:58 MPV 10.5 fL (7.4-10.4) H 09/24/23 12:58 Neut % (Auto) 62.7 % 09/24/23 12:58 Lymph % (Auto) 22.1 % 09/24/23 12:58 [place] % (Auto) 8.6 % 09/24/23 12:58 Eos % (Auto) 5.6 % 09/24/23 12:58 Baso % (Auto) 0.6 % 09/24/23 12:58 Neut # (Auto) 5.27 10^3/uL (1.8-7.7) 09/24/23 12:58 Lymph # (Auto) 1.9 10^3/uL (0.8-4.8) 09/24/23 12:58 [place] # (Auto) 0.7 10^3/uL (0.2-0.9) 09/24/23 12:58 Eos # (Auto) 0.5 10^3/uL (0.0-0.8) 09/24/23 12:58 Baso # (Auto) 0.1 10^3/uL (0.0-0.1) 09/24/23 12:58 Nucleated RBC % (auto) 0 % 09/24/23 12:58 Nucleated RBCs # 0.0 /100WBC 09/24/23 12:58 Sodium 142 mmol/L (136-145) 09/24/23 12:58 Potassium 4.1 mmol/L (3.5-5.1) 09/24/23 12:58 Chloride 102 mmol/L (98-107) 09/24/23 12:58 Carbon Dioxide 28 mmol/L (22-29) 09/24/23 12:58 Anion Gap 16.1 (5-19) 09/24/23 12:58 BUN 16 mg/dL (8-23) 09/24/23 12:58 Creatinine 1.1 mg/dL (0.5-0.9) H 09/24/23 12:58 GFR Calculation 49.2 mL/min (90-130) L 09/24/23 12:58 Glucose 114 mg/dL (65-115) 09/24/23 12:58 Calculated Osmolality 296 mOsm/kg (285-295) H 09/24/23 12:58 Calcium 10.0 mg/dL (8.5-10.5) 09/24/23 12:58 Total Bilirubin 0.5 mg/dL (0.15-1.2) 09/24/23 12:58 AST 12 U/L (0-32) 09/24/23 12:58 ALT 11 U/L (0-33) 09/24/23 12:58 Alkaline Phosphatase 107 U/L (35-105) H 09/24/23 12:58 Total Protein 7.7 g/dL (6.6-8.7) 09/24/23 12:58 Albumin 4.0 g/dL (3.5-5.2) 09/24/23 12:58 Globulin 3.7 g/dL (1.3-4.6) 09/24/23 12:58 Lipase 36 U/L (13-60) 09/24/23 12:58 All radiology interpretation(s) finalized by discharge Discharge Plan Discharge Patient Disposition: Home Clinical Impression: Constipation Condition: Stable Prescriptions: New lactulose 10 gram/15 mL (15 mL) solution 30 g PO Q2H 1 Days Qty: 540 0RF Rx Instructions: until desired laxative effect No Action zinc 50 mg tablet 50 mg PO DAILY mecobalamin (vitamin B12) 5,000 mcg tablet,disintegrating 1,000 mcg PO DAILY ascorbic acid (vitamin C) 1,000 mg tablet 1,000 mg PO DAILY cholecalciferol (vitamin D3) 25 mcg (1,000 unit) capsule 25 mcg PO DAILY tamsulosin 0.4 mg capsule 0.4 mg PO .at bedtime Qty: 30 12RF hydroxyzine HCl 10 mg tablet 10 mg PO TID (DME) pen needle, diabetic 31 gauge x 5/16 needle See Rx Instructions .ROUTE .MEDSUPPLY Qty: 1,200 Rx Instructions: As directed diclofenac sodium 1 % gel 4 g topical QID Qty: 100 2RF Rx Instructions: apply to single knee, ankle, foot; for foot includes sole/toes/top of foot Trulicity 0.75 mg/0.5 mL pen injector 0.75 mg SUBCUT .weekly cyclobenzaprine 10 mg tablet 10 mg PO BID PRN (Reason: muscle spasm) Qty: 7 0RF ondansetron HCl 4 mg tablet 4 mg PO Q8H PRN (Reason: nausea and vomiting) 5 Days Qty: 20 0RF diclofenac sodium 1 % gel 2 g TOPICAL .four times daily Qty: 100 5RF cetirizine 10 mg tablet See Rx Instructions .ROUTE .COMPLEX Qty: 30 5RF Dose Instruction: TAKE 1 TABLET BY MOUTH EVERY DAY Rx Instructions: TAKE 1 TABLET BY MOUTH EVERY DAY OneTouch Ultra Test Strip See Rx Instructions .ROUTE .COMPLEX Qty: 100 0RF Dose Instruction: CHECK BLOOD SUGAR TWICE DAILY Rx Instructions: CHECK BLOOD SUGAR TWICE DAILY levothyroxine 50 mcg tablet See Rx Instructions .ROUTE .COMPLEX Qty: 90 0RF Dose Instruction: TAKE 1 TABLET BY MOUTH DAILY Rx Instructions: TAKE 1 TABLET BY MOUTH DAILY Tresiba FlexTouch U-200 200 unit/mL (3 mL) insulin pen See Rx Instructions .ROUTE .COMPLEX Qty: 27 0RF Dose Instruction: INJECT 60 UNITS UNDER THE SKIN DAILY Rx Instructions: INJECT 60 UNITS UNDER THE SKIN DAILY pen needle, diabetic [BD Ultra-Fine Short Pen Needle] 31 gauge x 5/16 needle See Rx Instructions .ROUTE .COMPLEX Qty: 100 2RF Dose Instruction: USE DIRECTED Rx Instructions: USE DIRECTED ergocalciferol (vitamin D2) 1,250 mcg (50,000 unit) capsule See Rx Instructions .ROUTE .COMPLEX Qty: 12 0RF Dose Instruction: TAKE 1 CAPSULE BY MOUTH WEEKLY Rx Instructions: TAKE 1 CAPSULE BY MOUTH WEEKLY pantoprazole 40 mg tablet,delayed release (DR/EC) See Rx Instructions .ROUTE .COMPLEX Qty: 90 0RF Dose Instruction: TAKE 1 TABLET BY MOUTH DAILY Rx Instructions: TAKE 1 TABLET BY MOUTH DAILY potassium chloride 10 mEq tablet extended release 10 meq PO DAILY Qty: 90 3RF Jardiance 25 mg tablet See Rx Instructions .ROUTE .COMPLEX Qty: 90 0RF Dose Instruction: TAKE 1 TABLET BY MOUTH DAILY Rx Instructions: TAKE 1 TABLET BY MOUTH DAILY (DME) lancets [OneTouch Delica Plus Lancet] 30 gauge misc See Rx Instructions .ROUTE .COMPLEX Qty: 100 0RF Dose Instruction: USE DIRECTED Rx Instructions: USE DIRECTED montelukast 10 mg tablet See Rx Instructions .ROUTE .COMPLEX Qty: 90 0RF Dose Instruction: TAKE 1 TABLET BY MOUTH DAILY Rx Instructions: TAKE 1 TABLET BY MOUTH DAILY lovastatin 20 mg tablet See Rx Instructions .ROUTE .COMPLEX Qty: 90 0RF Dose Instruction: TAKE 1 TABLET BY MOUTH DAILY Rx Instructions: TAKE 1 TABLET BY MOUTH DAILY Discharge Orders: Discharge ED (Routine); Ordered 09/24/23 Ordered By: Alvarado Pelayo Referrals: SEBASTIAN Garza, REY [Primary Care Provider] - Discharge Diet: Usual diet Discharge Activity: Increase activity as tolerated Patient Instructions: Constipation (ED), Opioid Safety, Pain Management Activity Restrictions/Additional Instructions: Thank you for choosing [facility] for your healthcare needs today. Please realize this is an emergency room and that we are providing you with a medical screening exam and this may not be complete and all inclusive of all the testing and or work up that you may need to determine your ailment or severity of your illness. It is very important that you follow up as instructed or that you return to the Emergency Department should you have concerns or if your condition changes or worsens in any way. You are seen today for abdominal pain your laboratory studies did not show significant abnormality flat and upright of your abdomen showed large amount of retained stool in the right portion of your colon. I believe this is what is causing most of your discomfort. Recommend you take lactulose 1 dose every 2 hours until desired results are achieved. As this stimulates your bowel that will cause considerable amount of cramping. Coding Level of Care Code ED Finishing Supervisor [employer] for Mariela Carvalho
--- NOTE | 2023-09-24 14:06 | XRR_ITS ---
PROCEDURE INFORMATION: Exam: XR Abdomen Exam date and time: 09/24/2023 2:16 PM Age: 67 years old Clinical indication: Abdominal pain; Generalized; Patient HX: Abd. Pain, cramping TECHNIQUE: Imaging protocol: Radiologic exam of the abdomen. Views: 2 Views. Upright and supine views. COMPARISON: CR XR hip LT 2-3V wo/w pel* [id number] 05/24/2023 1:10 PM FINDINGS: Lungs: Clear lungs. Pleural spaces: No pleural effusion. Heart/Mediastinum: Cardiomediastinal contours are unremarkable. Gastrointestinal tract: Large amount of colonic stool. Intraperitoneal space: Right upper quadrant surgical clip. Bones/joints: Moderate degenerative change right shoulder. Thoracolumbar spine curvature with mild degenerative change. XR/XR acute abdomen series [id number] IMPRESSION: Large amount of colonic stool. No acute chest disease.
[2023-09-24 14:07] LABS: Anion Gap 16.1 (5-19); Carbon Dioxide 28 mmol/L (22-29)
[2023-09-24 14:46] VITALS: BP 124/84; PULSE 88; RESP 16; TEMP 36.6; O2SAT 96
== END 2023-09-24 14:47 | disposition home or self-care (01) ==
PROVIDERS: Emergency Medicine; Emergency Provider Family Medicine; PCP Nurse Practitioner Family
DX: K59.00 Constipation, unspecified (principal); Z79.85 Long-term (current) use of injectable non-insulin antidiabetic drugs; Z79.4 Long term (current) use of insulin; E78.2 Mixed hyperlipidemia; I10 Essential (primary) hypertension; E11.9 Type 2 diabetes mellitus without complications
CPT/HCPCS: 36415; 74022; 80053; 83690; 85025; 99284

== ENCOUNTER → 2023-11-29 14:07 | Outpatient (BNVA) | payer MEDICARE, MEDICAID, SELFPAY | PROVIDERS: PCP Nurse Practitioner Family; Visit Provider Nurse Practitioner Family | DX: N18.30 Chronic kidney disease, stage 3 unspecified (principal) | CPT/HCPCS: 80069; 82043; 82542; 85007; 85027 ==

== ENCOUNTER → 2024-02-04 09:23 | Outpatient (BNVA) | payer MEDICARE, MEDICAID, SELFPAY | PROVIDERS: PCP Nurse Practitioner Family; Visit Provider Nurse Practitioner Family | DX: M19.90 Unspecified osteoarthritis, unspecified site (principal) | CPT/HCPCS: 73130 ==

== ENCOUNTER 2024-04-04 06:00 | Outpatient (RCR) | payer MEDICARE, MEDICAID, SELFPAY | END 2024-05-03 23:59 | disposition home or self-care (01) | LOC: WPT 06:00 | PROVIDERS: PCP Nurse Practitioner Family; Visit Provider Nurse Practitioner Family | DX: S76.301D Unspecified injury of muscle, fascia and tendon of the posterior muscle group at thigh level, right thigh, subsequent encounter (principal); X58.XXXD Exposure to other specified factors, subsequent encounter | CPT/HCPCS: 97110; 97112; 97140; 97161; 97530 ==

== ENCOUNTER 2024-05-04 06:00 | Outpatient (RCR) | payer MEDICARE, OTHER, MEDICAID, SELFPAY | END 2024-06-03 23:59 | disposition home or self-care (01) | LOC: WPT 06:00 | PROVIDERS: PCP Nurse Practitioner Family; Visit Provider Nurse Practitioner Family | DX: S76.301D Unspecified injury of muscle, fascia and tendon of the posterior muscle group at thigh level, right thigh, subsequent encounter (principal); X58.XXXD Exposure to other specified factors, subsequent encounter | CPT/HCPCS: 97110; 97112; 97530 ==

== ENCOUNTER 2024-05-04 13:45 | Outpatient (CLI) | payer MEDICARE, MEDICAID, OTHER, SELFPAY ==
--- NOTE | 2024-05-04 13:48 | MM_ITS ---
WS: [email or web address] Bilateral screening 3D tomosynthesis digital mammogram, 05/04/2024 Clinical Data: SCREENING Comparison: 04/27/2023, 04/13/2022, 03/21/2021, 02/29/2020, 12/21/2018, 03/15/2013, 09/08/2011, 07/03/2009. Findings: The breast parenchymal pattern shows fibroglandular tissue. No spiculated masses or clustered calcifi cations are seen. There are no secondary signs of carcinoma. There are mole markers on both breasts. MM/[place] [id number] Impression: 1. Negative bilateral mammogram unchanged. 2. Recommend annual screening mammograms. BIRADS: 1-Negative FOLLOW UP: 1 Year Follow-up The CAD checkering machine operator was used.
== END 2024-05-04 13:46 | disposition home or self-care (01) ==
LOC: RAD 13:45
PROVIDERS: PCP Nurse Practitioner Family; Visit Provider Nurse Practitioner Family
DX: Z12.31 Encounter for screening mammogram for malignant neoplasm of breast (principal); R92.323 Mammographic fibroglandular density, bilateral breasts
CPT/HCPCS: 77063; 77067

== ENCOUNTER → 2024-05-26 08:23 | Outpatient (BNVA) | payer MEDICARE, OTHER, MEDICAID, SELFPAY | PROVIDERS: PCP Nurse Practitioner Family; Visit Provider Nurse Practitioner Family | DX: Z89.411 Acquired absence of right great toe (principal); M77.31 Calcaneal spur, right foot; S99.921A Unspecified injury of right foot, initial encounter; X58.XXXA Exposure to other specified factors, initial encounter | CPT/HCPCS: 73630 ==

== ENCOUNTER 2024-06-04 06:00 | Outpatient (RCR) | payer MEDICARE, OTHER, MEDICAID, SELFPAY | END 2024-06-15 23:59 | disposition home or self-care (01) | LOC: WPT 06:00 | PROVIDERS: PCP Nurse Practitioner Family; Visit Provider Nurse Practitioner Family | DX: M25.561 Pain in right knee (principal) | CPT/HCPCS: 97110; 97112; 97530 ==

== ENCOUNTER 2024-06-09 11:51 | Outpatient (CLI) | payer OTHER, SELFPAY ==
--- NOTE | 2024-06-09 11:55 | XR_ITS ---
WS: [email or web address] Examination: XR elbow RT min 3V* [id number] Reason for Exam: S53.401A - Unspecified sprain of right elbow, initial enc... Date: 06/09/2024 Comparison: None. Findings: There is no abnormal fat pad There is no bony destruction. There is no fracture or dislocation Chronic changes are identified with spurring at the olecranon as well as the coronoid process XR/XR elbow RT min 3V* [id number] Impression: There is no acute bony abnormality. Chronic changes are present.
--- NOTE | 2024-06-09 11:55 | XR_ITS ---
WS: [email or web address] Examination: XR shoulder RT min 2V* [id number] Reason for Exam: S46.911A - Strain of unspecified muscle, fascia and tendo... Date: 06/09/2024 Comparison: None. Findings: The bone density is mildly diminished. There is no destruction There is no displaced fracture or dislocation Severe chronic changes are present. Glenoid osteophytes are present with large humeral head osteophyt es. AC joint spurring and degenerative changes are present. XR/XR shoulder RT min 2V* [id number] Impression: There is no acute fracture or dislocation Severe arthritic changes of the right shoulder are noted.
--- NOTE | 2024-06-09 11:55 | XR_ITS ---
WS: [email or web address] Examination: XR ribs RT 2V* [id number] Reason for Exam: R07.89 - Other chest pain Date: 06/09/2024 Comparison: None. Findings: The heart is normal in size. The mediastinum not widened. The grant are not enlarged There is no failure or effusion. There is no consolidative change. The bone density is maintained without destruction. I see no displaced right rib fracture. XR/XR ribs RT 2V* [id number] Impression: No displaced right rib fracture is identified.
== END 2024-06-09 11:52 | disposition home or self-care (01) ==
PROVIDERS: PCP Nurse Practitioner Family; Visit Provider Nurse Practitioner Family
DX: S46.911A Strain of unspecified muscle, fascia and tendon at shoulder and upper arm level, right arm, initial encounter (principal); S53.401A Unspecified sprain of right elbow, initial encounter; M25.711 Osteophyte, right shoulder; M25.721 Osteophyte, right elbow; R07.89 Other chest pain
CPT/HCPCS: 71100; 73030; 73080

== ENCOUNTER → 2024-06-12 15:53 | Outpatient (BNVA) | payer MEDICARE, OTHER, MEDICAID, SELFPAY | PROVIDERS: PCP Nurse Practitioner Family; Visit Provider Podiatrist Foot & Ankle Surgery | DX: S92.501A Displaced unspecified fracture of right lesser toe(s), initial encounter for closed fracture; W10.9XXA Fall (on) (from) unspecified stairs and steps, initial encounter; M92.61 Juvenile osteochondrosis of tarsus, right ankle; M92.62 Juvenile osteochondrosis of tarsus, left ankle | CPT/HCPCS: 73630; 99213 ==

== ENCOUNTER 2024-06-26 15:53 | Outpatient (CLI) | payer OTHER, SELFPAY ==
--- NOTE | 2024-06-26 15:55 | XRR_ITS ---
PROCEDURE INFORMATION: Exam: XR Sternum Exam date and time: 06/26/2024 3:59 PM Age: 68 years old Clinical indication: Injury or trauma; Other: Fall down stairs; Blunt trauma (contusions or hematomas); Injury date: 2 weeks ago; Additional info: W10.8xxd - fall (on) (from) other stairs and steps, subse. . . TECHNIQUE: Imaging protocol: Radiologic exam of the sternum. Views: 2 or more views. COMPARISON: CR XR ribs RT 2V* [id number] 06/09/2024 12:10 PM FINDINGS: Bones/joints: Bones are diffusely osteopenic. Multilevel degenerative changes of varying severity in the visualized spine. No acute fracture. No dislocation. Lungs: Visualized lungs are clear. Vasculature: Atherosclerotic changes in the visualized arteries. Soft tissues: No soft tissue swelling. No radiopaque foreign body. XR/XR sternum min 2V [id number] IMPRESSION: 1. No acute fracture. CT scan of the chest would be recommended if clinical concern for fracture persists. 2. Incidental/nonacute findings are listed in the report.
--- NOTE | 2024-06-26 15:55 | XRR_ITS ---
PROCEDURE INFORMATION: Exam: XR Cervical Spine Exam date and time: 06/26/2024 3:59 PM Age: 68 years old Clinical indication: Injury or trauma; Other: Fall jesus stairs; Blunt trauma; Additional info: M54.12 - radiculopathy, cervical region TECHNIQUE: Imaging protocol: Radiologic exam of the cervical spine. Views: 2 or 3 views. COMPARISON: CR XR sternum min 2V [id number] 06/26/2024 3:59 PM FINDINGS: Bones/joints: No acute fracture. No subluxation. Mild degenerative changes in the visualized spine. Intervertebral disc space height is preserved. No abnormal motion of the cervical spine during flexion or extension. Calcification of the nuchal ligament at the C6-C7 level. 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 Soft tissues: No prevertebral soft tissue swelling. No radiopaque foreign body. XR/XR cervical spine fl/ex [id number] IMPRESSION: 1. No acute fracture of the cervical spine. CT scan would be recommended if there is continuing clinical concern for fracture. 2. Mild degenerative changes in the visualized spine. 3. No abnormal motion of the cervical spine during flexion or extension. 4. Incidental/nonacute findings are listed in the report.
== END 2024-06-26 15:54 | disposition home or self-care (01) ==
LOC: RAD 15:54
PROVIDERS: PCP Nurse Practitioner Family; Visit Provider Nurse Practitioner Family
DX: M54.12 Radiculopathy, cervical region (principal); S20.219A Contusion of unspecified front wall of thorax, initial encounter; S13.9XXA Sprain of joints and ligaments of unspecified parts of neck, initial encounter; M89.8X9 Other specified disorders of bone, unspecified site; M46.02 Spinal enthesopathy, cervical region; W10.8XXA Fall (on) (from) other stairs and steps, initial encounter
CPT/HCPCS: 71120; 72040

== ENCOUNTER 2024-07-27 06:46 | Outpatient (CLI) | payer MEDICARE, MEDICAID, SELFPAY ==
--- NOTE | 2024-07-27 07:00 | US_ITS ---
WS: [email or web address] ULTRASOUND BREAST RIGHT TECHNIQUE: Ultrasound right breast focused area of concern. CLINICAL INFORMATION: N64.4 - Mastodynia COMPARISON: None. FINDINGS: Ultrasound RIGHT breast at the 3 o'clock to 9:00 positions in the areas of concern. No suspicious fin dings in the areas of concern. No cystic or solid lesions. No suspicious lesions to target for biopsy . US/US breast RT limited* [id number] IMPRESSION: No suspicious findings in the area of concern. Recommend return to annual screening mammography
== END 2024-07-27 06:47 | disposition home or self-care (01) ==
PROVIDERS: PCP Nurse Practitioner Family; Visit Provider Nurse Practitioner Family
DX: N64.4 Mastodynia (principal); S92.501D Displaced unspecified fracture of right lesser toe(s), subsequent encounter for fracture with routine healing; X58.XXXD Exposure to other specified factors, subsequent encounter; E78.2 Mixed hyperlipidemia; E04.1 Nontoxic single thyroid nodule; E55.9 Vitamin D deficiency, unspecified; E03.9 Hypothyroidism, unspecified; I10 Essential (primary) hypertension; E11.9 Type 2 diabetes mellitus without complications; Z79.4 Long term (current) use of insulin; M92.61 Juvenile osteochondrosis of tarsus, right ankle; M92.62 Juvenile osteochondrosis of tarsus, left ankle
CPT/HCPCS: 73630; 76642; 80053; 80061; 81003; 82306; 83036; 84443; 85025; 87086; 99213

== ENCOUNTER 2024-08-08 06:00 | Outpatient (RCR) | payer MEDICARE, SELFPAY | END 2024-09-02 23:59 | disposition home or self-care (01) | LOC: WPT 06:00 | PROVIDERS: Visit Provider Podiatrist Foot & Ankle Surgery | DX: M72.2 Plantar fascial fibromatosis (principal) | CPT/HCPCS: 97110; 97112; 97140; 97161; 97530 ==

== ENCOUNTER 2024-09-03 06:00 | Outpatient (RCR) | payer OTHER, SELFPAY | END 2024-10-03 23:59 | disposition home or self-care (01) | LOC: WPT 06:00 | PROVIDERS: PCP Nurse Practitioner Family; Visit Provider Podiatrist Foot & Ankle Surgery | DX: M72.2 Plantar fascial fibromatosis (principal) | CPT/HCPCS: 97110; 97112; 97530 ==

== ENCOUNTER → 2024-09-12 08:11 | Outpatient (BNVA) | payer OTHER, SELFPAY | PROVIDERS: PCP Nurse Practitioner Family; Visit Provider Orthopaedic Surgery | DX: M25.521 Pain in right elbow (principal) | CPT/HCPCS: 73080; 80053; 81001; 83036; 85025 ==

== ENCOUNTER → 2024-10-02 15:00 | Outpatient (BNVA) | payer MEDICARE, SELFPAY | PROVIDERS: PCP Nurse Practitioner Family; Visit Provider Podiatrist Foot & Ankle Surgery | DX: M76.62 Achilles tendinitis, left leg (principal); M92.62 Juvenile osteochondrosis of tarsus, left ankle; M92.61 Juvenile osteochondrosis of tarsus, right ankle; S92.501D Displaced unspecified fracture of right lesser toe(s), subsequent encounter for fracture with routine healing; M62.462 Contracture of muscle, left lower leg; X58.XXXD Exposure to other specified factors, subsequent encounter | CPT/HCPCS: 99213 ==

== ENCOUNTER 2024-10-04 06:00 | Outpatient (RCR) | payer MEDICARE, SELFPAY | END 2024-11-03 23:59 | disposition home or self-care (01) | LOC: WPT 06:00 | PROVIDERS: PCP Nurse Practitioner Family; Visit Provider Podiatrist Foot & Ankle Surgery | DX: M72.2 Plantar fascial fibromatosis (principal) | CPT/HCPCS: 97110; 97530 ==

== ENCOUNTER → 2024-11-16 09:06 | Outpatient (BNVA) | payer BC, SELFPAY | PROVIDERS: PCP Nurse Practitioner Family; Visit Provider Nurse Practitioner Family | DX: E11.9 Type 2 diabetes mellitus without complications (principal); Z79.4 Long term (current) use of insulin | CPT/HCPCS: 80053 ==

== ENCOUNTER 2024-12-01 09:55 | Outpatient (CLI) | payer BC, MEDICAID, SELFPAY ==
--- NOTE | 2024-12-01 10:15 | MR_ITS ---
WS: [id number] MRI LEFT ANKLE WITHOUT CONTRAST. COMPARISON: None Multiplanar, multisequence imaging is performed without contrast. History: Chronic Achilles tendon pain. No injury. Very mild convex contour of the anterior Achilles tendon. AP measurement is 6.4 mm. There is focal intermediate signal in the distal Achilles tendon. Signal is centered 2.5 cm above the insertion site. There is no full-thickness tear. There is a tiny insertion site tear and enthesopathy. No full-thickness tear or retraction. The Achilles tendon is slightly atrophied. Soft tissue edema anterior to the distal tendon consistent with peritendinitis. Normal plantar aponeurosis. Mild thickening of the peroneal brevis and longus tendons posterior to the fibula with a small amount of edema. The more distal tendons are more difficult to identify. On the sagittal STIR sequence there is scattered increased T2 signal suggesting tendinitis. No full-thickness tear. The remaining extensor and flexor tendons are normal. Small amount of fluid extends into the syndesmosis. There is no widening between the tibia and fibula. Mild narrowing of the ankle joint with no osteochondral lesions. Thin atrophied anterior talofibular ligament. Posterior talofibular ligament is normal. Increased T2 signal in the deltoid ligament but no acute tear. Calcaneofibular ligament is intact. MR/MR ankle LT wo con* [id number] IMPRESSION: 1. Mild atrophy of the Achilles tendon. 2. Mild convex contour of the Achilles tendon with mild distal tendinopathy. 3. Mild peritendinitis involving the distal Achilles tendon. 4. Tiny insertion site tear Achilles tendon. 5. Mild thickening of the peroneal tendons posterior to the fibula with edema suggesting tendinitis. The distal tendons are more difficult to visualize but t here is scattered increased T2 signal suggesting chronic tendinitis. 6. Mild chronic atrophy of the anterior talofibular ligament.
== END 2024-12-01 09:56 | disposition home or self-care (01) ==
PROVIDERS: PCP Nurse Practitioner Family; Visit Provider Podiatrist Foot & Ankle Surgery
DX: M76.62 Achilles tendinitis, left leg (principal); M92.62 Juvenile osteochondrosis of tarsus, left ankle; R93.6 Abnormal findings on diagnostic imaging of limbs; M77.52 Other enthesopathy of left foot and ankle
CPT/HCPCS: 73721

== ENCOUNTER → 2024-12-12 13:01 | Outpatient (BNVA) | payer BC, MEDICAID, SELFPAY | PROVIDERS: PCP Nurse Practitioner Family; Visit Provider Podiatrist Foot & Ankle Surgery | DX: M62.462 Contracture of muscle, left lower leg (principal); M92.61 Juvenile osteochondrosis of tarsus, right ankle; M92.62 Juvenile osteochondrosis of tarsus, left ankle; M76.62 Achilles tendinitis, left leg; E78.2 Mixed hyperlipidemia; E11.9 Type 2 diabetes mellitus without complications; Z79.4 Long term (current) use of insulin; I10 Essential (primary) hypertension | CPT/HCPCS: 80069; 82044; 82310; 83970; 85007; 85027 ==

== ENCOUNTER → 2024-12-19 13:55 | Outpatient (BNVA) | payer BC, MEDICAID, SELFPAY | PROVIDERS: PCP Nurse Practitioner Family; Visit Provider Nurse Practitioner Family | DX: E03.9 Hypothyroidism, unspecified (principal); E11.9 Type 2 diabetes mellitus without complications; Z79.4 Long term (current) use of insulin; M54.50 Low back pain, unspecified | CPT/HCPCS: 80048; 81003; 83036; 84443; 87086 ==

== ENCOUNTER → 2025-04-04 13:50 | Outpatient (BNVA) | payer MEDICARE, MEDICAID, SELFPAY | PROVIDERS: PCP Nurse Practitioner Family; Visit Provider Nurse Practitioner Family | DX: N39.0 Urinary tract infection, site not specified (principal) | CPT/HCPCS: 81003 ==

== ENCOUNTER 2025-05-01 11:40 | Emergency (ER) | payer MEDICARE, MEDICAID, SELFPAY ==
--- OUTSIDE RECORDS SUMMARY | 2025-04-30 13:40 | XMS_ITS | Encounter Summary ---
Author Organization [facility] Address [address] [place] [address] Care Team Providers Care Food Consultant Name Role Phone Caitlin Hood MD Primary Care Provider [phone]- [phone] Reason for Visit * Reason Comments Follow Up Encounter Details Date Type Department Care Team (Late st Contact Info) Description 04/30/2025 1:40 PM CDT Office Visit [facility] SPINE AND PAIN MANAGEMENT [facility] [id number] [place] [address] [place] [address] [address] Cervical myofascial pain syndrome (Primary Dx); Cervical stenosis of spinal canal Social History Tobacco Use Types Packs/Day Years Used Date Smoking Tobacco: Former Cigarettes Smokeless Tobacco: Never Comments:Quit smoking: i pac k would last for several months at a time Alcohol Use Standard Drinks/Week Comments No 0 (1 standard drink = 0.6 oz pur e alcohol) Comments No Sex and Gender Information Value Date Recorded Sex Assigned at Female 07/19/2024 5:22 PM CDT Legal Sex Female 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 * Cervical: Exercises (Khmer) documented in this encounter Progress Notes * Yang Moon MD - 04/30/2025 1:31 PM CDT Images from the original note were not included. [facility] SPINE AND PAIN MANAGEMENT [facility] ESTABLISHED PATIENT VISIT PRIMARY DOCTOR: Caitlin Hood MD DATE OF SERVICE: 04/30/2025 IMPRESSION: ALE Saha 69 y.o. female presenting for follow-up with a interval history as below for pain due to: ICD-10-CM ICD-9-CM 1. Cervical myofascial pain syndrome M79.18 729.1 2. Cervical stenosis of spinal canal M48.02 723.0 Patient patient's history, physical exam findings, available imaging, is most likely pain generatorseems to be due above diagnosis. Patient has mild spinal stenosis at C4-C5 and C5-C6 level. There seems to be major component of myofascial pain syndrome in her neck with no ivan radiculopathy at this time. I do recommend patient pursue Botox injection for cervical dystonia, we could also considercervical trigger point injection in clinic. If this does not help either then we can consider C6-[id number] epidural injection, midline approach to see if we can help with cervical stenosis pain. After thorough discussion of the risks and benefits of the proposed therapy, including but not limited to bleeding, infection, neurologic injury, inefficacy, and unforseen complications resulting from therapy, the patient agreed to proceed. Available imaging and labs were independently reviewed. PLAN: Continue with Botox injection with Dr. Snell Possible cervical trigger point injection, possible C6-C7 interlaminar epidural injection INTERVAL HISTORY: Ms. ALE Saha is following up after Bilateral C3-C4 and C4-C5 procedure. Patient reports reported there was no improvement from the RFA. Patient noted a 8/10 on pain scale Overall, patient reports less than 50% pain relief since last visit and with no improvement in functionality. Past Medical History: Diagnosis Date Anemia 03/10/2019 Arthritis Backache Chronic kidney disease Degenerative joint disease Diabetes Disorder of urinary tract Dyspnea on exertion Exposure to x-rays and electromagnetic ionizing radiation Generalized pain GERD (gastroesophageal reflux disease) Headache remote hx migraines Hearing reduced Hernia of unspecified site of abdominal cavity without mention of obstruction or gangrene HTN (hypertension) Hx of abnormal cervical Pap smear Long time ago Hyperlipidemia Latex sensitivity Motion sickness Other and unspecified disorder of bone and cartilage Psoriasis Temporomandibular joint disorder Thyromegaly Reviewed with patient Past Surgical History: Procedure Laterality Date HX ABDOMINAL SURGERY HX AMPUTATION 1956 Right great toe after childhood accident HX APPENDECTOMY HX CHOLECYSTECTOMY HX CYST REMOVAL 03-31-2011 Right index finger HX HYSTERECTOMY 1981 HX KNEE REPLACEMENT HX SHOULDER SURGERY HX NI AND BSO 1981 HX TYMPANOSTOMY [place] ARTHRP KNE CONDYLE&PLATU MEDIAL&LAT COMPARTMENTS Left 03/21/2019 KNEE ARTHROPLASTY TOTAL REPLACEMENT performed by Eloy Ramirez MD at [facility] OR OH COLONOSCOPY FLX DX W/COLLJ SPEC WHEN PFRMD N/A 02/20/2019 COLONOSCOPY performed by Sea Valadez MD at [facility] OR DENIES RELEVANT SURGICAL HISTORY Big toe on right foot removed twisted off in bike spokes Reviewed with patient Social History Socioeconomic History Marital status: Spouse name: Not on file Number of children: Not on file Years of education: Not on file Highest education level: Not on file Occupational History Not on file Tobacco Use Smoking status: Former Types: Cigarettes Smokeless tobacco: Never Tobacco comments: Quit smoking: i pack would last for several months at a time Vaping Use Vaping status: Never Used Substance and Sexual Activity Alcohol use: No Drug use: No Sexual activity: Not on file Other Topics Concern Not on file Social History Narrative Not on file Social Drivers of Health Food Insecurity: Not on file Transportation Needs: Not on file Feeling Safe: Not At Risk (06/04/2024) Feeling Safe Patient has indicated abuse: : No Housing Stability: Not on file No outpatient medications have been marked as taking for the 04/30/25 encounter (Office Visit) with Yang Moon MD. Reviewed with patient Allergies Allergen Reactions Bupivacaine Rash Diazepam Rash Latex, Natural Rubber Swelling Metformin Nausea and Vomiting Reviewed with patient Lab Results Component Value Date/Time NA 141 2020 08:27 AM K 4.0 2020 08:27 AM CL 103 2020 08:27 AM CO2 27 2020 08:27 AM CA 10.1 2020 08:27 AM BUN 29 (H) 2020 08:27 AM CREAT 1.32 (H) 2020 08:27 AM GLUCOSE 121 (H) 2020 08:27 AM ANIONGAP 11 (L) 2020 08:27 AM Lab Results Component Value Date/Time WBC 7.8 2020 08:27 AM HGB 13.3 2020 08:27 AM HCT 42.8 2020 08:27 AM PLT 273 2020 08:27 AM MCV 84.9 2020 08:27 AM No results found for: INR , PT , PROTIMEPOC Labs were reviewed and were deemed appropriate for interventional procedure. PHYSICAL EXAM: Pulse 60 Wt 79.4 kg (175 lb) SpO2 99% BMI 28.25 kg/m?? General: Patient is alert and oriented and in no obvious distress. Head: Normocephalic and atraumatic. Respiratory: Non labored breathing. Cardiac: Extremities warm with peripheral pulse present. Abdomen: Non-distended. Extremities: No edema in the lower extremities. Skin: No rashes or significant lesions. Psychological: Normal PAIN (NEURO/MUSCULOSKELETAL) PHYSICAL EXAM: Gait: Normal; Assist device: Assistive Device: None Cervical: tenderness over cervical spine, pain with lateral rotation, pain with flexion / extension, equivocal Spurling's maneuver, and myofascial pain Treatment plan fully discussed and agreed upon with patient. All questions were answered. Procedural risks/benefits discussed including bleeding, infection, nerve injury and increase blood glucose. Imaging was reviewed with the patient and a spine model also was used to explain the procedure. Yang Moon MD Anesthesiology and Pain Management [facility] Spine and Pain Management Note: This note was created with the aid of dictation software and may have word substitutions or errors. documented in this encounter Miscellaneous Notes * Patient Instructions - Finn Enciso - 04/30/2025 1:55 PM CDT Images from the original note were not included. Trigger Point Injections What are trigger points: Trigger points are described as hyperirritable areas in the muscles. Patients typically can feel the trigger points as nodules that are painful to palpation. Most common locations for trigger points are neck, upper back and low back. How are trigger points diagnosed: Diagnosis is made based on physical examination and history. Typically, the area in question can bepalpated and the tender nodules representing the trigger points can be identified. No imaging modalities are necessary for diagnosis. How are trigger points treated: Treatment for trigger points may include physical therapy (i.e. manual release techniques, stretching and strengthening, conditioning), transcutaneous electrical nerve stimulation (TENS), medical management (i.e some muscle relaxants), trigger point injections, dry needling and acupuncture. How is trigger point injection performed: The physician will clean the area to be injected with an antibacterial solution. Then a fine needleattached to a syringe is inserted in the trigger point. The needle may be moved in the trigger point before injecting medication. What medications are injected: The injected medication is typically a local anesthetic, such as lidocaine, or a combination of local anesthetic and steroid. What are the risks: The general risks of the procedure include: bleeding, infection, allergic reaction, bruising at thesite of injection, and failure of the procedure to produce pain relief. Depending on the location of the procedure other risks might be involved. How long can I anticipate relief: There is no consistent measure of duration of relief as every patient experiences slightly different results. Some patients may experience no relief. Usually, a successful injection results in reduced pain lasting weeks or month. Medications Before the procedure: Please note: It is okay to continue prescribed medications (blood pressure, insulin, water pills, depression/anxiety pill etc.) prior to procedure. What to Expect After the Procedure: Before being discharged, instructions will be reviewed with you and you will be able to ask any questions you may have. For the next 24 hours you are asked to refrain from swimming, whirlpools and taking baths; showering is okay. You may resume normal activities on the same day following your procedure. Specific physical therapy instructions will be discussed with you, but may usually be resumed within 24 hours of the procedure. You may notice a local reaction, such as pain, warmth, and slight swelling immediately after the injection. These symptoms generally do not last long. You may want to apply an ice pack to help ease them. Rarely, patients may develop a local allergy-like reaction. In these cases, the injection site may become full of fluid, red, warm, and painful. If this occurs, contact your doctor immediately. Infection and bleeding are also very rare complications of this procedure. documented in this encounter Plan of Treatment Upcoming Encounters Date Type Department Care Team (Late st Contact Info) Description 05/08/2025 9:15 AM CDT Procedure visit [facility] Neurology [facility] [place] [address] [address] [place] [address] [facility] [address] [place] [address] documented as of this encounter Visit Diagnoses Diagnosis Cervical myofascial pain syndrome- Primary Mylagia and myositis, unspecified Cervical stenosis of spinal canal Spinal stenosis in cervical region documented in this encounter Additional Health Concerns Assessment Noted Time PHQ-9 Depression Total Score: 1 04/28/20 19 10:00 AM CDT documented as of this encounter Care Teams Food Consultant Relationship Specialty Start Date End Date Caitlin Hood MD [facility] [place] [phone] PCP - General Family Practice 02/24/23 documented as of this encounter
--- NOTE | 2025-05-01 11:42 | XRR_ITS ---
PROCEDURE INFORMATION: Exam: XR Chest Exam date and time: 05/01/2025 11:57 AM Age: 69 years old Clinical indication: Other: High heart rate; Additional info: Weakness TECHNIQUE: Imaging protocol: Radiologic exam of the chest. Views: 1 view. COMPARISON: CR XR ribs LT mn 3V w CXR1V [id number] 07/30/2020 3:44 PM FINDINGS: Lungs: Unremarkable. No consolidation. Pleural spaces: Unremarkable. No pleural effusion. No pneumothorax. Heart/Mediastinum: Unremarkable. No cardiomegaly. Bones/joints: Unremarkable. XR/XR chest 1V portable [id number] IMPRESSION: No acute findings.
[2025-05-01 11:43] VITALS: BP 131/84; PULSE 112; TEMP 37; O2SAT 98; BMI 28.8
--- NOTE | 2025-05-01 11:47 | ECG_ITS ---
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 Measurements Intervals [place] Rate: 113 P: 34 WI: 167 QRS: 31 QRSD: 74 T: 54 QT: 336 QTc: 462 Interpretive Statements SINUS TACHYCARDIA POSSIBLE ANTERIOR MYOCARDIAL INFARCTION , PROBABLY OLD [30 ms Q WAVE IN V3/V4, OR R < 0.2 mV IN V4] ABNORMAL RHYTHM ECG No previous ECG available for comparison Electronically Signed On 05-03-2025 10:26:28 CDT by Matthew Miguel M.D. [email or web address]
--- OUTSIDE RECORDS SUMMARY | 2025-05-01 11:48 | XMS_ITS | Encounter Summary ---
Author Organization [facility] Address [address] [place] [address] Care Team Providers Care Lawn Mower Repairer Name Role Phone Non-Staff, Physician Primary Care Provider Unava ilable Encounter Details Date Type Department Care Team (Latest Contact Info) Description 11/10/2001 Outpatient Historical [facility] General Surgery [place] [address] [facility] [address] [place] [address] [place] [address] [facility] [address] [place] [address] ABDOMINAL PAIN RUQ (Primary Dx) Social History Tobacco Use Types Packs/Day Years Used Date Smoking Tobacco: Never Assessed Comments Unknown Sex and Gender Information Value Date Recorded Sex Assigned at Not on file 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
--- OUTSIDE RECORDS SUMMARY | 2025-05-01 11:48 | XMS_ITS | Encounter Summary ---
Author Organization [facility] Address [address] [place] [address] Care Team Providers Care Bag Bailer Name Role Phone Non-Staff, Physician Primary Care Provider Unava ilable Encounter Details Date Type Department Care Team (Late st Contact Info) Description 08/16/2017 Lab Requisition [facility] General Laboratory Services [place] [address] [place] [address] Gerald Alvarado, NO ADDRESS ON FILE Social History Tobacco Use Types Packs/Day Years Used Date Smoking Tobacco: Former Smokeless Tobacco: Never Alcohol Use Standard Drinks/Week Comments No 0 (1 standard drink = 0.6 oz pur e alcohol) Comments No Sex and Gender Information Value Date Recorded Sex Assigned at Not on file 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:58 AM 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 SAW OPERATOR Gender Identity Not on file Sexual Orientation Not on file Occupation Industry Job Start Date Job End Date Not on file Not on file Not on file Not on file documented as of this encounter Plan of Treatment Not on file documented as of this encounter Procedures Procedure Name Priority Date/Time Associated Diagnosis Comments BASIC METABOLIC PANEL Routine 08/16/2017 7:13 PM SCROLL SAW OPERATOR documented in this encounter Results * (ABNORMAL) BASIC METABOLIC PANEL (08/16/2017 7:13 PM SCROLL SAW OPERATOR) SODIUM 142 136 - 145 mmol/L 08/16/2017 9:40 PM [facility] POTASSIUM 4.0 3.5 - 5.1 mmol/L 08/16/2017 9:40 PM [facility] CHLORIDE 101 98 - 107 mmol/L 08/16/2017 9:40 PM [facility] CO2 28 22 - 29 mmol/L 08/16/2017 9:40 PM [facility] CALCIUM 10.2 8.8 - 10.2 mg/dL 08/16/2017 9:40 PM [facility] BUN 36(H) 8 - 23 mg/dL 08/16/2017 9:40 PM [facility] CREATININE 1.18(H) 0.51 - 0.95 mg/dL 08/16/2017 9:40 PM [facility] GLUCOSE 107(H) 74 - 106 mg/dL 08/16/2017 9:40 PM [facility] GFR 46(L) >=60 mL/min/1.7 3 sq meter 08/16/2017 9:40 PM [facility] Comment: eGFR has not been validated for use in the elderly (> 70 years of age), women, patients with serious co-morbid conditions, or persons with extremes of body size or muscle mass and should also be interpreted with caution in patients with acute kidney failure, dialysis dependent patients, patients reporting exceptional dietary intake (e.g. vegetarian diet, high protein diets, creatine supplementation), and patients with severe liver disease. Based on National Kidney Disease Education Program If patient is , please refer to the GFR result. GFR, 56(L) >=60 mL/min/1.7 3 sq meter 08/16/2017 9:40 PM [facility] ANION GAP 13 12 - 20 mmol/L 08/16/2017 9:40 PM [facility] Blood Venipuncture / Unknown 08/16/2017 7:13 PM SCROLL SAW OPERATOR 08/16/2017 9:10 PM SCROLL SAW OPERATOR us Gerald Alvarado DO CHEMISTRY ORDERABLES Final Resu lt [facility] CLIA # [id number] [address] [place] [id number] documented in this encounter Visit Diagnoses Not on filedocumented in this encounter Care Teams Bag Bailer Relationship Specialty Start Date End Date Non-Staff, Physician NO ADDRESS ON FILE PCP - General 06/27/20 documented as of this encounter
--- OUTSIDE RECORDS SUMMARY | 2025-05-01 11:48 | XMS_ITS | Encounter Summary ---
Author Organization [facility] Address [address] [place] [address] Care Team Providers Care Undertaker Assistant Name Role Phone Non-Staff, Physician Primary Care Provider Unava ilable Encounter Details Date Type Department Care Team (Late st Contact Info) Description 10/11/2017 Lab Requisition [facility] Laboratory Services [place] [address] [place] [address] Gerald Alvarado, NO ADDRESS ON FILE Social History Tobacco Use Types Packs/Day Years Used Date Smoking Tobacco: Former Smokeless Tobacco: Never Alcohol Use Standard Drinks/Week Comments No 0 (1 standard drink = 0.6 oz pur e alcohol) Comments No Sex and Gender Information Value Date Recorded Sex Assigned at Not on file 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 Gender Identity Not on file Sexual Orientation Not on file Occupation Industry Job Start Date Job End Date Not on file Not on file Not on file Not on file documented as of this encounter Plan of Treatment Not on file documented as of this encounter Procedures Procedure Name Priority Date/Time Associated Diagnosis Comments INFLUENZA VIRUS A AND B, ANTIGEN DETECTION Routine 10/11/2017 5:41 PM SUMMER COUNSELOR documented in this encounter Results * INFLUENZA VIRUS A AND B DETECTION (10/11/2017 5:41 PM SUMMER COUNSELOR) INFLUENZA A AG Not Detected Not Detected 10/11/2017 6:42 PM SUMMER COUNSELOR [facility] INFLUENZA B AG Not Detected Not Detected 10/11/2017 6:42 PM SUMMER COUNSELOR [facility] Upper respiratory specimen (specimen) ENTIRE NASOPHARYNX / Unknown Collection / Unknown 10/11/2017 5:41 PM SUMMER COUNSELOR 10/11/2017 5:41 PM SUMMER COUNSELOR Narrative [facility] - 10/11/2017 6:42 PM SUMMER COUNSELOR Negative results do not rule out infection. Consider further testing if clinically indicated. Gerald Alvarado DO MICROBIOLOGY - GENERAL ORDERABL ES Final [id number] [address] [place] [id number] documented in this encounter Visit Diagnoses Not on filedocumented in this encounter Care Teams Undertaker Assistant Relationship Specialty Start Date End Date Non-Staff, Physician NO ADDRESS ON FILE PCP - General 06/27/20 documented as of this encounter
--- OUTSIDE RECORDS SUMMARY | 2025-05-01 11:48 | XMS_ITS | Encounter Summary ---
Author Organization [facility] Address [address] [place] [address] Care Team Providers Care Sign Board Erector Name Role Phone Non-Staff, Physician Primary Care Provider Unava ilable Encounter Details Date Type Department Care Team (Latest Contact Info) Description 08/13/1999 Outpatient Historical [facility] Imaging Services-[place] [address] [place] [address] Andressa Mooney MD [address] [place] [address] Goiter, unspecified (Primary Dx) Social History Tobacco Use Types Packs/Day Years Used Date Smoking Tobacco: Never Assessed Comments Unknown Sex and Gender Information Value Date Recorded Sex Assigned at Not on file 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
--- OUTSIDE RECORDS SUMMARY | 2025-05-01 11:48 | XMS_ITS | Encounter Summary ---
Author Organization [facility] Address [address] [place] [address] Care Team Providers Care Leather Coater Name Role Phone Non-Staff, Physician Primary Care Provider Unava ilable Encounter Details Date Type Department Care Team (Late st Contact Info) Description 02/07/2020 Ancillary Orders 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 No / Unsure 02/07/2020 12:41 PM CDT documented as of this encounter Plan of Treatment Not on file documented as of this encounter Results * XR KNEE 3 VW RIGHT (02/07/2020 1:01 PM CDT) Anatomical Region Laterality Modality Lower Extremity Computed Radiogr aphy 02/07/2020 1:02 PM CDT Impressions 02/07/2020 3:19 PM CDT IMPRESSION: No acute osseous abnormality. Ixxj-qk-remcukxp degenerative changes with suspected intra-articular debris. [id number] Narrative 02/07/2020 3:19 PM CDT Exam: XR KNEE 3 VW RIGHT Date/Time of Exam: 02/07/2020 1:01 PM Reason For Exam: See Diagnosis. Diagnosis: Unspecified injury of right lower leg, initial encounter. Comparison: None. Findings: There is no evidence of an acute fracture or dislocation. There are hiwf-ie-pxuksczz degenerative changes. There is a 0.4 cm ossific density about the lateral joint line which may reflect intra-articular debris. There is extensor mechanism enthesopathy. The soft tissues appear grossly unremarkable. Procedure Note Toni Gifford, DO - 02/07/2020 Exam: XR KNEE 3 VW RIGHT Date/Time of Exam: 02/07/2020 1:01 PM Reason For Exam: See Diagnosis. Diagnosis: Unspecified injury of right lower leg, initial encounter. Comparison: None. Findings: There is no evidence of an acute fracture or dislocation. There are dbhw-hi-tsssjhpv degenerative changes. There is a 0.4 cm ossific density about the lateral joint line which may reflect intra-articular debris. There is extensor mechanism enthesopathy. The soft tissues appear grossly unremarkable. IMPRESSION: No acute osseous abnormality. Zumk-sc-juunznvr degenerative changes with suspected intra-articular debris. [id number] us Dj Gross FINANCIAL MANAGEMENT DIAGNOSTIC IMAGING ORDERABLES Fi nal Result documented in this encounter Visit Diagnoses Diagnosis Unspecified injury of right lower leg, initial encounter Unspecified injury of right lower leg, initial encounter documented in this encounter Additional Health Concerns Assessment Noted Time PHQ-9 Depression Total Score: 1 04/28/20 19 10:00 AM CDT documented as of this encounter Care Teams Leather Coater Relationship Specialty Start Date End Date Non-Staff, Physician NO ADDRESS ON FILE PCP - General 06/27/20 documented as of this encounter
--- OUTSIDE RECORDS SUMMARY | 2025-05-01 11:48 | XMS_ITS | Encounter Summary ---
Author Organization [facility] Address [address] [place] [address] Care Team Providers Care Tint Layer Name Role Phone Non-Staff, Physician Primary Care Provider Unava ilable Encounter Details Date Type Department Care Team (Late st Contact Info) Description 11/15/2017 Lab Requisition [facility] [place] [address] [place] [address] Kiesha Del Angel, SIDING MECHANIC [address] [place] [address] Social History Tobacco Use Types Packs/Day Years Used Date Smoking Tobacco: Former Smokeless Tobacco: Never Alcohol Use Standard Drinks/Week Comments No 0 (1 standard drink = 0.6 oz pur e alcohol) Comments No Sex and Gender Information Value Date Recorded Sex Assigned at Not on file 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:58 AM ROLLER SHOP SUPERVISOR Gender Identity Not on file Sexual Orientation Not on file Occupation Industry Job Start Date Job End Date Not on file Not on file Not on file Not on file documented as of this encounter Plan of Treatment Not on file documented as of this encounter Procedures Procedure Name Priority Date/Time Associated Diagnosis Comments CBC WITH DIFFERENTIAL Routine 11/15/2017 10:25 PM ROLLER SHOP SUPERVISOR TSH Routine 11/15/2017 10:25 PM ROLLER SHOP SUPERVISOR COMPREHENSIVE METABOLIC PANEL Routine 11/15/2017 10:25 PM ROLLER SHOP SUPERVISOR documented in this encounter Results * (ABNORMAL) CBC WITH DIFFERENTIAL (11/15/2017 10:25 PM ROLLER SHOP SUPERVISOR) WBC 5.7 4.0 - 10.0 K/uL 11/16/2017 12:05 AM [facility] RBC 4.31 3.93 - 5.22 M/uL 11/16/2017 12:05 AM [facility] HEMOGLOBIN 12.2 11.2 - 15.7 g/dL 11/16/2017 12:05 AM [facility] HEMATOCRIT 38.8 34.1 - 44.9 % 11/16/2017 12:05 AM [facility] MCV 90.0 79.4 - 94.8 fL 11/16/2017 12:05 AM [facility] MCH 28.3 25.6 - 32.2 pg 11/16/2017 12:05 AM [facility] MCHC 31.4(L) 32.2 - 35.5 g/dL 11/16/2017 12:05 AM [facility] RDW 14.0 11.0 - 14.5 % 11/16/2017 12:05 AM [facility] RDW-STDEV 45.2 36.9 - 56.9 fL 11/16/2017 12:05 AM [facility] PLATELETS 270 163 - 337 K/uL 11/16/2017 12:05 AM [facility] MPV 11.6 10.0 - 14.8 fL 11/16/2017 12:05 AM [facility] NEUTROPHILS 52 34 - 71 % 11/16/2017 12:05 AM [facility] LYMPHOCYTES 30 19 - 52 % 11/16/2017 12:05 AM [facility] MONOCYTES 9 5 - 13 % 11/16/2017 12:05 AM [facility] EOSINOPHILS 8(H) 1 - 6 % 11/16/2017 12:05 AM [facility] BASOPHILS 1 0 - 1 % 11/16/2017 12:05 AM [facility] IMMATURE GRANULOCYTES 0 % 11/16/2017 12:05 AM [facility] NEUTROPHIL ABSOLUTE 3.00 1.56 - 6.13 K/uL 11/16/2017 12:05 AM [facility] LYMPHOCYTE ABSOLUTE 1.72 1.20 - 3.40 K/uL 11/16/2017 12:05 AM [facility] MONOCYTE ABSOLUTE 0.49(H) 0.24 - 0.36 K/uL 11/16/2017 12:05 AM [facility] EOSINOPHIL ABSOLUTE 0.46(H) 0.04 - 0.36 K/uL 11/16/2017 12:05 AM [facility] BASOPHILS ABSOLUTE 0.04 0.01 - 0.08 K/uL 11/16/2017 12:05 AM [facility] IMMATURE GRANULOCYTES ABSOLUTE 0.01 K/uL 11/16/2017 12:05 AM [facility] Blood Venipuncture / Unknown 11/15/2017 10:25 PM ROLLER SHOP SUPERVISOR 11/15/2017 10:25 PM ROLLER SHOP SUPERVISOR Kiesha Del Angel SIDING MECHANIC HEMATOLOGY ORDERABLES Final Result [facility] CLIA # [id number] [address] [place] [phone] * (ABNORMAL) COMPREHENSIVE METABOLIC PANEL (11/15/2017 10:25 PM ROLLER SHOP SUPERVISOR) SODIUM 143 136 - 145 mmol/L 11/16/2017 12:00 AM [facility] POTASSIUM 3.8 3.5 - 5.1 mmol/L 11/16/2017 12:00 AM [facility] CHLORIDE 105 98 - 107 mmol/L 11/16/2017 12:00 AM [facility] CO2 27 22 - 29 mmol/L 11/16/2017 12:00 AM [facility] CALCIUM 9.3 8.8 - 10.2 mg/dL 11/16/2017 12:00 AM [facility] BUN 17 8 - 23 mg/dL 11/16/2017 12:00 AM [facility] CREATININE 0.92 0.51 - 0.95 mg/dL 11/16/2017 12:00 AM [facility] GLUCOSE 134(H) 74 - 106 mg/dL 11/16/2017 12:00 AM [facility] TOTAL PROTEIN 7.4 6.6 - 8.7 g/dL 11/16/2017 12:00 AM [facility] ALBUMIN 3.9 3.5 - 5.2 g/dL 11/16/2017 12:00 AM [facility] BILIRUBIN TOTAL 0.2 0.0 - 1.2 mg/dL 11/16/2017 12:00 AM [facility] ALKALINE PHOSPHATASE 80 35 - 104 U/L 11/16/2017 12:00 AM [facility] AST 14 10 - 35 U/L 11/16/2017 12:00 AM [facility] ALT 14 10 - 35 U/L 11/16/2017 12:00 AM [facility] GFR >60 >=60 mL/min/1.7 3 sq meter 11/16/2017 12:00 AM [facility] Comment: eGFR has not been validated for [...] please refer to the GFR result. GFR, >60 >=60 mL/min/1.7 3 sq meter 11/16/2017 12:00 AM [facility] ANION GAP 11(L) 12 - 20 mmol/L 11/16/2017 12:00 AM [facility] Blood Venipuncture / Unknown 11/15/2017 10:25 PM ROLLER SHOP SUPERVISOR 11/15/2017 10:25 PM [facility] us Kiesha Navarrete [place] SIDING MECHANIC CHEMISTRY ORDERABLES Final Result Performing Organization Address City/[facility]/ZIP Co de Phone Number [facility] CLIA # [id number] [address] [place] [address] [phone] * TSH (11/15/2017 10:25 PM ROLLER SHOP SUPERVISOR) TSH 1.94 0.27 - 4.20 uIU/mL 11/16/2017 12:00 AM ROLLER SHOP SUPERVISOR [facility] Blood Venipuncture / Unknown 11/15/2017 10:25 PM ROLLER SHOP SUPERVISOR 11/15/2017 10:25 PM ROLLER SHOP SUPERVISOR Kiesha Navarrete [place] SIDING MECHANIC CHEMISTRY ORDERABLES Final Result Performing Organization Address City/[facility]/ZIP Co de Phone Number [facility] CLIA # [id number] [address] [place] [address] [phone] documented in this encounter Visit Diagnoses Not on filedocumented in this encounter Care Teams Tint Layer Relationship Specialty Start Date End Date Non-Staff, Physician NO ADDRESS ON FILE PCP - General 06/27/20 documented as of this encounter
--- OUTSIDE RECORDS SUMMARY | 2025-05-01 11:48 | XMS_ITS | Clinical Summary ---
Author Organization [facility] Facility Address [address] [address] Care Team Providers Care Colleter Name Role Phone Greg Kory DECONTAMINATOR Primary Care Provider [phone] Allergies Active Allergy Reactions Criticality Noted Date Comments Bupivacaine Rash Low 11/25/2021 Diazepam Rash Low 11/25/2021 Latex Swelling 07/08/2010 Metformin Nausea And Vomiting 04/24/2017 Medications cetirizine (ZyrTEC) 10 MG tablet Take 10 mg by mouth 1 (one) time each day Active diclofenac (VOLTAREN) 1 % gel Apply topically 4 times a day Active Insulin Degludec (Tresiba) 100 UNIT/ML solution Inject 20-24 Units under the skin 1 (one) time each day Active levothyroxine (SYNTHROID, LEVOTHROID) 25 MCG tablet Take 25 mcg by mouth 1 (one) time each day Active Jardiance 10 MG tablet Take 25 mg by mouth 1 (one) time each day 0 Active Nystop powder APPLY TOPICALLY BID 0 Active montelukast (SINGULAIR) 10 MG tablet TK 1 T PO D 0 Active valACYclovir (VALTREX) 1 g tablet TK 1 PO D FOR 5 DAYS AT FIRST ONSET OF SYMPTOMS THEN PATIENT MAY TAKE DAILY PRN 0 Active pantoprazole (PROTONIX) 40 MG EC tablet TK 1 T D 0 Active Linzess 145 MCG capsule Take 1 capsule by mouth 1 (one) time each day 4 Active chlorthalidone 25 MG tabletIndicati ons:Stage 3b chronic kidney disease (HCC) TAKE 1 TABLET(25 MG) BY MOUTH EVERY DAY 90 tablet 3 4 Active atorvastatin (LIPITOR) 20 MG tablet Take 20 mg by mouth at bed time 5 Active Trulicity 4.5 MG/0.5ML solution auto-injector INJECT 4.5 MG subcutaneously ONE DAY A WEEK 5 Active Active Problems Problem Noted Date Diagnosed Date Postoperative hypothyroidism 12/03/2023 Mixed hyperlipidemia 12/03/2023 Hyperglycemia due to type 2 diabetes mellitus Dysphagia 12/03/2023 Severe obesity 08/14/2019 Goiter 08/14/2019 Cervical spondylosis 07/14/2019 Degenerative joint disease involving multiple chery ints 04/28/2019 Essential hypertension 03/10/2019 Dyslipidemia 03/10/2019 Stage 3b chronic kidney disease 03/10/2019 Overview (10/07/2020): Update for Diagnosis Load Anemia 03/10/2019 Gastroesophageal reflux disease 10/28/2010 Type 2 diabetes mellitus 10/10/2010 Immunizations Immunization Administration Dates Next Due Influenza TIV (IM) 07/18/2018,07/22/2007 Influenza, Quadrivalent, Preservative Free 05/24 Pneumococcal Conjugate 13-Valent 06/12/2019,03/0 05/2019 Pneumococcal Polysaccharide 02/08/2020, 2 Td 06/20/2002,03/14/1999 Zoster 08/06/2020,05/24/2020 Family History Medical History Relation Comments Cancer Father Cancer Mother Diabetes Mother Heart disease Mother Hypertension Mother Kidney disease Mother Cancer Sister Relation Status Comments Father Mother Alive Sister Social History Tobacco Use Types Packs/Day Years Used Date Smoking Tobacco: Never Smokeless Tobacco: Never Tobacco Cessation:Counseling Given: Not Answered Alcohol Use Standard Drinks/Week Comments Not Currently 0 (1 standard drink = 0.6 oz pur e alcohol) occasionally Comments Unknown Sex and Gender Information Value Date Recorded Sex Assigned at Not on file Legal Sex Female 11:54 AM EDT Gender Identity Not on file Sexual Orientation Not on file Last Filed Vital Signs Vital Sign Reading Time Taken Comments Blood Pressure 114/76 12/20/2024 10:18 AM CDT Pulse 76 12/20/2024 10:18 AM CDT Temperature 36.8 C (98.2 F) 12/27/2020 1:44 PM CDT Respiratory Rate - - Oxygen Saturation - - Inhaled Oxygen Concentration - - Weight 81.2 kg (179 lb) 12/20/2024 10:18 AM CDT Height 167.6 cm (5' 6 ) 12/20/2024 10:18 AM CDT Body Mass Index 28.89 12/20/2024 10:18 AM CDT Plan of Treatment Upcoming Encounters Date Type Department Care Team (Late st Contact Info) Description 12/20/2025 10:10 AM CDT Office Visit [facility] [address] [place] [address] Tabitha Cohen MD [address] [place] [address] Health Maintenance Due Date Last Done Comments Breast Cancer Screening 1955 Colorectal Cancer Screening: Annual FOBT 2002 Colorectal Cancer Screening: Colonoscopy 2002 Colorectal Cancer Screening: Sigmoidoscopy 2002 Diabetes: Ophthalmology Exam 05/29/2020 Diabetes: Pedal Pulse Checked 05/29/2020 Diabetes: Sensory Foot Exam 05/29/2020 Diabetes: Visual Foot Exam 05/29/2020 Diabetes: Hemoglobin A1C 03/21/2025 12/19/2024, 1106/2019 Influenza Vaccine (#1) 2025 0, 07/18/2018, 07/22/2007 Pneumococcal Vaccine: 50+ Years Completed 02/08/2020, 06/12/2019, 12/09/2018, Additional history exists Pneumococcal Vaccine: Peds (0 to 5 Years) and At-Risk Patients (6 to 49 Years) Discontinued 02/08/2020, 06/12/2019, 12/09/2018, Additional history exists Hepatitis B Vaccine Aged Out No longe r eligible based on patient's age to complete this topic Procedures Procedure Name Priority Date/Time Associated Diagnosis Comments HEMOGLOBIN A1C (EXTERNAL RESULT ENTRY) Routine 12/19/2024 from Last 3 Months or Most Recently Relevant to Health Maintenance Results * Hemoglobin A1C (12/19/2024) Hemoglobin A1C 6.7 Blood specimen (specimen) Venous blood / Unknown 12/19/2024 Narrative Dang Deutsch MA - 12/19/[address] [address] Pt had appt 12/20-our labs not drawn us Aps External Provider LAB BLOOD ORDERABLES Final Result from Last 3 Months or Most Recently Relevant to Health Maintenance Insurance Medicaid [place] ([id number]) [place] MCR Adv ([id number]) Care Teams Colleter Relationship Specialty Start Date End Date Kory Garza ARNP [address] [id number] PCP - General Nurse Practitioner 12/03/23
--- OUTSIDE RECORDS SUMMARY | 2025-05-01 11:48 | XMS_ITS | Encounter Summary ---
Author Organization [facility] Address [address] [facility] [address]: [place] [address] Care Team Providers Care Cnmt Name Role Phone Non-Staff, Physician Primary Care Provider Unava ilable Encounter Details Date Type Department Care Team (Late st Contact Info) Description 10/28/1999 Outpatient Historical [facility], Physician NO ADDRESS ON FILE Social History Tobacco Use Types Packs/Day Years Used Date Smoking Tobacco: Never Assessed Comments Unknown Sex and Gender Information Value Date Recorded Sex Assigned at Not on file 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:58 AM HYDROPONICS WORKER Gender Identity Not on file Sexual Orientation Not on file documented as of this encounter Plan of Treatment Not on file documented as of this encounter Visit Diagnoses Not on filedocumented in this encounter Care Teams Cnmt Relationship Specialty Start Date End Date Non-Staff, Physician NO ADDRESS ON FILE PCP - General 06/27/20 documented as of this encounter
--- OUTSIDE RECORDS SUMMARY | 2025-05-01 11:48 | XMS_ITS | Encounter Summary ---
Author Organization [facility] Address [address] [place] [address] Care Team Providers Care Strawhat Sizer Name Role Phone Non-Staff, Physician Primary Care Provider Unava ilable Encounter Details Date Type Department Care Team (Latest Contact Info) Description 10/13/1999 Outpatient Historical [facility] [address] [place] [address] Andressa Mooney MD [address] [place] [address] Chronic lymphocytic thyroiditis (Primary Dx) Social History Tobacco Use Types Packs/Day Years Used Date Smoking Tobacco: Never Assessed Comments Unknown Sex and Gender Information Value Date Recorded Sex Assigned at Not on file 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:58 AM MINE SAFETY MANAGER Gender Identity Not on file Sexual Orientation Not on file documented as of this encounter Plan of Treatment Not on file documented as of this encounter Visit Diagnoses Diagnosis Chronic lymphocytic thyroiditis- Primary documented in this encounter Care Teams Strawhat Sizer Relationship Specialty Start Date End Date Non-Staff, Physician NO ADDRESS ON FILE PCP - General 06/27/20 documented as of this encounter
--- OUTSIDE RECORDS SUMMARY | 2025-05-01 11:48 | XMS_ITS | Encounter Summary ---
Author Organization [facility] Address [address] [place] [address] Care Team Providers Care Manager Human Resources Name Role Phone Non-Staff, Physician Primary Care Provider Unava ilable Encounter Details Date Type Department Care Team (Late st Contact Info) Description 07/12/2017 Lab Requisition [facility] [place] [address] [place] [address] Gerald Alvarado, NO ADDRESS ON FILE Social History Tobacco Use Types Packs/Day Years Used Date Smoking Tobacco: Former Smokeless Tobacco: Never Alcohol Use Standard Drinks/Week Comments No 0 (1 standard drink = 0.6 oz pur e alcohol) Comments No Sex and Gender Information Value Date Recorded Sex Assigned at Not on file 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:58 AM HYPERBARIC NURSE Gender Identity Not on file Sexual Orientation Not on file Occupation Industry Job Start Date Job End Date Not on file Not on file Not on file Not on file documented as of this encounter Plan of Treatment Not on file documented as of this encounter Procedures Procedure Name Priority Date/Time Associated Diagnosis Comments BRAIN NATRIURETIC PEPTIDE, BNP OR PROBNP Routine 07/12/2017 9:42 PM CDT HEMOGLOBIN A1C Routine 07/12/2017 9:42 PM CDT BASIC METABOLIC PANEL Routine 07/12/2017 9:42 PM CDT documented in this encounter Results * (ABNORMAL) BASIC METABOLIC PANEL (07/12/2017 9:42 PM CDT) SODIUM 142 136 - 145 mmol/L 07/12/2017 11:46 PM [facility] POTASSIUM 4.0 3.5 - 5.1 mmol/L 07/12/2017 11:46 PM [facility] CHLORIDE 102 98 - 107 mmol/L 07/12/2017 11:46 PM [facility] CO2 25 22 - 29 mmol/L 07/12/2017 11:46 PM [facility] CALCIUM 9.3 8.8 - 10.2 mg/dL 07/12/2017 11:46 PM [facility] BUN 29(H) 8 - 23 mg/dL 07/12/2017 11:46 PM [facility] CREATININE 1.37(H) 0.51 - 0.95 mg/dL 07/12/2017 11:46 PM [facility] GLUCOSE 82 74 - 106 mg/dL 07/12/2017 11:46 PM [facility] GFR 39(L) >=60 mL/min/1.7 3 sq meter 07/12/2017 11:46 PM [facility] Comment: eGFR has not been validated [...] please refer to the GFR result. GFR, 47(L) >=60 mL/min/1.7 3 sq meter 07/12/2017 11:46 PM [facility] ANION GAP 15 12 - 20 mmol/L 07/12/2017 11:46 PM [facility] Blood 07/12/2017 9:42 PM CDT 07/12/2017 11:01 PM CDT us Gerald Alvarado DO CHEMISTRY ORDERABLES Final Resu lt Performing Organization Address [facility]/ZIP Co de Phone Number [facility] CLIA # [id number] [address] [place] [address] [phone] * BRAIN NATRIURETIC PEPTIDE, BNP OR PROBNP (07/12/2017 9:42 PM CDT) PROBNP, N TERMINAL 86 0 - 125 pg/mL 07/12/2017 11:52 PM CDT [facility] Blood 07/12/2017 9:42 PM CDT 07/12/2017 11:01 PM CDT us Gerald Alvarado DO CHEMISTRY ORDERABLES Final Resu lt Performing Organization Address [facility] Co de Phone Number [facility] CLIA # [id number] [address] [place] [phone] * (ABNORMAL) HEMOGLOBIN A1C (07/12/2017 9:42 PM CDT) HEMOGLOBIN A1C 7.7(H) 4.8 - 5.9 % 07/13/2017 12:16 AM CDT [facility] EST. AVG GLUCOSE, A1C 174 mg/dL 07/13/2017 12:16 AM CDT [facility] Blood 07/12/2017 9:42 PM CDT 07/12/2017 11:01 PM CDT us Gerald Alvarado DO CHEMISTRY ORDERABLES Final Resu lt Performing Organization Address [facility]/ZIP Co de Phone Number [facility] CLIA # [id number] [address] [place] [address] [phone] documented in this encounter Visit Diagnoses Not on filedocumented in this encounter Care Teams Manager Human Resources Relationship Specialty Start Date End Date Non-Staff, Physician NO ADDRESS ON FILE PCP - General 06/27/20 documented as of this encounter
--- OUTSIDE RECORDS SUMMARY | 2025-05-01 11:48 | XMS_ITS | Encounter Summary ---
Author Organization [facility] Address [address] [place] [address] Care Team Providers Care Commercial Leasing Manager Name Role Phone Non-Staff, Physician Primary Care Provider Unava ilable Encounter Details Date Type Department Care Team (Latest Contact Info) Description 10/13/1999 Outpatient Historical [facility] General and Trauma Surgery-[address] [place] [address] Local superficial swellng (Primary Dx) Social History Tobacco Use Types Packs/Day Years Used Date Smoking Tobacco: Never Assessed Comments Unknown Sex and Gender Information Value Date Recorded Sex Assigned at Not on file 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:58 AM PRODUCTION MAINTENANCE MECHANIC Gender Identity Not on file Sexual Orientation Not on file documented as of this encounter Plan of Treatment Not on file documented as of this encounter Visit Diagnoses Diagnosis Local superficial swellng- Primary Localized superficial swelling, mass, or lump documented in this encounter Care Teams Commercial Leasing Manager Relationship Specialty Start Date End Date Non-Staff, Physician NO ADDRESS ON FILE PCP - General 06/27/20 documented as of this encounter
--- OUTSIDE RECORDS SUMMARY | 2025-05-01 11:48 | XMS_ITS | Encounter Summary ---
Author Organization [facility] Address [address] [place] [address] Care Team Providers Care Etl Database Developer Name Role Phone Non-Staff, Physician Primary Care Provider Unava ilable Encounter Details Date Type Department Care Team (Latest Contact Info) Description 08/13/1999 Outpatient Historical [facility] [place] [address] [place] [address] Andressa Mooney MD [address] [place] [address] Goiter, unspecified (Primary Dx) Social History Tobacco Use Types Packs/Day Years Used Date Smoking Tobacco: Never Assessed Comments Unknown Sex and Gender Information Value Date Recorded Sex Assigned at Not on file 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:58 AM DIE CUT OPERATOR Gender Identity Not on file Sexual Orientation Not on file documented as of this encounter Plan of Treatment Not on file documented as of this encounter Visit Diagnoses Diagnosis Goiter, unspecified- Primary documented in this encounter Care Teams Etl Database Developer Relationship Specialty Start Date End Date Non-Staff, Physician NO ADDRESS ON FILE PCP - General 06/27/20 documented as of this encounter
--- OUTSIDE RECORDS SUMMARY | 2025-05-01 11:48 | XMS_ITS | Encounter Summary ---
Author Organization [facility] Address [address] [place] [address] Care Team Providers Care Soccer Coach Name Role Phone Non-Staff, Physician Primary Care Provider Unava ilable Encounter Details Date Type Department Care Team (Latest Contact Info) Description 07/17/1998 Outpatient Historical [facility] Family Medicine- [address] [place] [phone] Gerald Alvarado DO NO ADDRESS ON FILE Acute bronchitis (Primary Dx); Pneumonia due to Mycoplasma pneumoniae Social History Tobacco Use Types Packs/Day Years Used Date Smoking Tobacco: Never Assessed Comments Unknown Sex and Gender Information Value Date Recorded Sex Assigned at Not on file 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:58 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
--- OUTSIDE RECORDS SUMMARY | 2025-05-01 11:48 | XMS_ITS | Encounter Summary ---
Author Organization [facility] Address [address] [place] [address] Care Team Providers Care Communications Technician Name Role Phone Non-Staff, Physician Primary Care Provider Unava ilable Encounter Details Date Type Department Care Team (Latest Contact Info) Description 12/01/2000 Outpatient Historical [facility] [place] Family Medicine [place] [address] [facility] [address] [place] [address] Gerald Alvarado DO NO ADDRESS ON FILE Other specified menopausal and postmenopausal disorder (Primary Dx) Social History Tobacco Use Types Packs/Day Years Used Date Smoking Tobacco: Never Assessed Comments Unknown Sex and Gender Information Value Date Recorded Sex Assigned at Not on file 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:58 AM FELLER OPERATOR Gender Identity Not on file Sexual Orientation Not on file documented as of this encounter Plan of Treatment Not on file documented as of this encounter Visit Diagnoses Diagnosis Other specified menopausal and postmenopausal disorder- Primary documented in this encounter Care Teams Communications Technician Relationship Specialty Start Date End Date Non-Staff, Physician NO ADDRESS ON FILE PCP - General 06/27/20 documented as of this encounter
--- OUTSIDE RECORDS SUMMARY | 2025-05-01 11:48 | XMS_ITS | Encounter Summary ---
Author Organization [facility] Address [address] [place] [address] Care Team Providers Care Laborer Beam House Name Role Phone Non-Staff, Physician Primary Care Provider Unava ilable Encounter Details Date Type Department Care Team (Late st Contact Info) Description 04/22/2015 Lab Requisition [facility] General Laboratory Services [place] [address] [place] [address] Gerald Alvarado, NO ADDRESS ON FILE Social History Tobacco Use Types Packs/Day Years Used Date Smoking Tobacco: Former Alcohol Use Standard Drinks/Week Comments No 0 (1 standard drink = 0.6 oz pur e alcohol) Comments No Sex and Gender Information Value Date Recorded Sex Assigned at Not on file 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:58 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 Gender Identity Not on file Sexual Orientation Not on file Occupation Industry Job Start Date Job End Date Not on file Not on file Not on file Not on file documented as of this encounter Plan of Treatment Not on file documented as of this encounter Procedures Procedure Name Priority Date/Time Associated Diagnosis Comments CBC WITH DIFFERENTIAL Routine 04/22/2015 11:22 PM CDT TSH Routine 04/22/2015 11:22 PM CDT HEMOGLOBIN A1C Routine 04/22/2015 11:22 PM CDT COMPREHENSIVE METABOLIC PANEL Routine 04/22/2015 11:22 PM CDT documented in this encounter Results * TSH (04/22/2015 11:22 PM CDT) Pathologist [facility] TSH 3.92 0.30 - 4.80 uIU/mL 04/23/2015 3:30 AM CDT [facility] Blood 04/22/2015 11:2 2 PM CDT 04/22/2015 11:22 PM CDT Gerald Alvarado DO CHEMISTRY ORDERABLES Final Resu lt Performing Organization Address [facility] Co de Phone Number [facility] [employer] [facility] CLIA # [id number] [address] [place] [address] [phone] * (ABNORMAL) HEMOGLOBIN A1C (04/22/2015 11:22 PM CDT) Pathologist [facility] HEMOGLOBIN A1C 6.7(H) 4.5 - 6.2 % 04/23/2015 1:31 AM CDT [facility] EST. AVG GLUCOSE, A1C 146 mg/dL 04/23/2015 1:31 AM CDT [facility] Blood 04/22/2015 11:2 2 PM CDT 04/22/2015 11:22 PM CDT Gerald Alvarado DO CHEMISTRY ORDERABLES Final Resu lt Performing Organization Address [facility]/ZIP Co de Phone Number [facility] [employer] [facility] CLIA # [id number] [address] [place] [address] [phone] * (ABNORMAL) COMPREHENSIVE METABOLIC PANEL (04/22/2015 11:22 PM CDT) Pathologist [facility] SODIUM 142 136 - 145 mmol/L 04/23/2015 4:34 AM CDT [facility] POTASSIUM 3.3(L) 3.5 - 5.1 mmol/L 04/23/2015 4:34 AM CDT [facility] [employer] [facility] [place] CHLORIDE 104 98 - 107 mmol/L 04/23/2015 4:34 AM [facility] [place] CO2 30 21 - 32 mmol/L 04/23/2015 4:34 AM [facility] [employer] [facility] [place] CALCIUM 8.8 8.5 - 10.1 mg/dL 04/23/2015 4:34 AM [facility] [employer] [facility] BUN 16 7 - 18 mg/dL 04/23/2015 4:34 AM [facility] [employer] [facility] [place] CREATININE 1.26 0.60 - 1.30 mg/dL 04/23/2015 4:34 AM [facility] [employer] [facility] [place] GLUCOSE 202(H) 74 - 106 mg/dL 04/23/2015 4:34 AM [facility] [employer] [facility] TOTAL PROTEIN 7.3 6.4 - 8.2 g/dL 04/23/2015 4:34 AM [facility] ALBUMIN 3.6 3.4 - 5.0 g/dL 04/23/2015 4:34 AM [facility] BILIRUBIN TOTAL 0.2 0.2 - 1.0 mg/dL 04/23/2015 4:34 AM [facility] ALKALINE PHOSPHATASE 88 46 - 116 U/L 04/23/2015 4:34 AM [facility] [employer] [facility] AST 8(L) 15 - 37 U/L 04/23/2015 4:34 AM [facility] [employer] [facility] ALT 22(L) 30 - 65 U/L 04/23/2015 4:34 AM [facility] [employer] [facility] [place] GFR 43(L) >=60 mL/min/1.7 3 sq meter 04/23/2015 4:34 AM [facility] [employer] [facility] Comment: eGFR has not been validated for [...] please refer to the GFR result. GFR, 52(L) >=60 mL/min/1.7 3 sq meter 04/23/2015 4:34 AM CDT [facility] [employer] [facility] [place] ANION GAP 8(L) 12 - 20 mmol/L 04/23/2015 4:34 AM CDT [facility] [employer] [facility] Blood 04/22/2015 11:2 2 PM CDT 04/22/2015 11:22 PM CDT Narrative [facility] [place] - 04/23/2015 4:34 AM CDT Effective 06/07/2014, the Alkaline Phosphatase test method and reference range have changed. Please take this into consideration when interpreting results prior to or after this date. us Gerald Alvarado DO CHEMISTRY ORDERABLES Final Resu lt [facility] [employer] [facility] CLIA # [id number] [address] [place] [phone] * (ABNORMAL) CBC WITH DIFFERENTIAL (04/22/2015 11:22 PM CDT) WBC 6.4 4.0 - 10.0 K/uL 04/23/2015 12:12 AM CDT [facility] [employer] [facility] [place] RBC 4.03 3.93 - 5.22 M/uL 04/23/2015 12:12 AM CDT [facility] [employer] [facility] [place] HEMOGLOBIN 12.0 11.2 - 15.7 g/dL 04/23/2015 12:12 AM CDT [facility] [employer] [facility] [place] HEMATOCRIT 35.9 34.1 - 44.9 % 04/23/2015 12:12 AM CDT [facility] [employer] [facility] [place] MCV 89.1 79.4 - 94.8 fL 04/23/2015 12:12 AM CDT [facility] [employer] [facility] [place] MCH 29.8 25.6 - 32.2 pg 04/23/2015 12:12 AM CDT [facility] [employer] [facility] MCHC 33.4 32.2 - 35.5 g/dL 04/23/2015 12:12 AM CDT [facility] [place] RDW 14.0 11.0 - 14.5 % 04/23/2015 12:12 AM CDT [facility] [place] RDW-STDEV 44.7 36.9 - 56.9 fL 04/23/2015 12:12 AM CDT [facility] [place] PLATELETS 232 163 - 337 K/uL 04/23/2015 12:12 AM CDT [facility] [place] MPV 11.4 10.0 - 14.8 fL 04/23/2015 12:12 AM CDT [facility] [place] NEUTROPHILS 61 34 - 71 % 04/23/2015 12:12 AM CDT [facility] [place] LYMPHOCYTES 26 19 - 52 % 04/23/2015 12:12 AM CDT [facility] [place] MONOCYTES 7 5 - 13 % 04/23/2015 12:12 AM CDT [facility] [place] EOSINOPHILS 5 1 - 6 % 04/23/2015 12:12 AM CDT [facility] [place] BASOPHILS 1 0 - 1 % 04/23/2015 12:12 AM CDT [facility] [place] NEUTROPHIL ABSOLUTE 3.95 1.56 - 6.13 K/uL 04/23/2015 12:12 AM CDT [facility] [place] LYMPHOCYTE ABSOLUTE 1.65 1.20 - 3.40 K/uL 04/23/2015 12:12 AM CDT [facility] [place] MONOCYTE ABSOLUTE 0.46(H) 0.24 - 0.36 K/uL 04/23/2015 12:12 AM CDT [facility] [place] EOSINOPHIL ABSOLUTE 0.32 0.04 - 0.36 K/uL 04/23/2015 12:12 AM CDT [facility] [place] BASOPHILS ABSOLUTE 0.04 0.01 - 0.08 K/uL 04/23/2015 12:12 AM CDT [facility] [place] IMMATURE GRANULOCYTES 0 % 04/23/2015 12:12 AM CDT [facility] [place] IMMATURE GRANULOCYTES ABSOLUTE 0.01 K/uL 04/23/2015 12:12 AM CDT [facility] [place] Blood 04/22/2015 11:2 2 PM CDT 04/22/2015 11:22 PM CDT Gerald Alvarado DO HEMATOLOGY ORDERABLES Final Res ult [facility] [place] CLDC # [id number] [address] [place] [address] documented in this encounter Visit Diagnoses Not on filedocumented in this encounter Care Teams Laborer Beam House Relationship Specialty Start Date End Date Non-Staff, Physician NO ADDRESS ON FILE PCP - General 06/27/20 documented as of this encounter
--- OUTSIDE RECORDS SUMMARY | 2025-05-01 11:48 | XMS_ITS | Encounter Summary ---
Author Organization [facility] Address [address] [place] [address] Care Team Providers Care French Drawer Name Role Phone Non-Staff, Physician Primary Care Provider Unava ilable Encounter Details Date Type Department Care Team (Latest Contact Info) Description 02/10/[address] 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
--- OUTSIDE RECORDS SUMMARY | 2025-05-01 11:48 | XMS_ITS | Encounter Summary ---
Author Organization [facility] Address [address] [place] [address] Care Team Providers Care Tone Artist Apprentice Name Role Phone Non-Staff, Physician Primary Care Provider Unava ilable Encounter Details Date Type Department Care Team (Latest Contact Info) Description 08/11/1999 Outpatient Historical [facility] Family Medicine [place] [address] [facility] [address] [place] [address] Gerald Alvarado DO NO ADDRESS ON FILE Pain in joint, shoulder region (Primary Dx) Social History Tobacco Use Types Packs/Day Years Used Date Smoking Tobacco: Never Assessed Comments Unknown Sex and Gender Information Value Date Recorded Sex Assigned at Not on file 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
--- OUTSIDE RECORDS SUMMARY | 2025-05-01 11:48 | XMS_ITS | Encounter Summary ---
Author Organization [facility] Address [address] [place] [address] Care Team Providers Care Hvac Mechanic Name Role Phone Non-Staff, Physician Primary Care Provider Unava ilable Encounter Details Date Type Department Care Team (Latest Contact Info) Description 10/25/1998 Outpatient Historical [facility] Family Medicine [place] [address] [facility] [address] [place] [address] Gerald Alvarado DO NO ADDRESS ON FILE Pain in joint, shoulder region (Primary Dx) Social History Tobacco Use Types Packs/Day Years Used Date Smoking Tobacco: Never Assessed Comments Unknown Sex and Gender Information Value Date Recorded Sex Assigned at Not on file 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
--- OUTSIDE RECORDS SUMMARY | 2025-05-01 11:48 | XMS_ITS | Encounter Summary ---
Author Organization [facility] Address [address] [place] [address] Care Team Providers Care Cops Name Role Phone Non-Staff, Physician Primary Care Provider Unava ilable Encounter Details Date Type Department Care Team (Late st Contact Info) Description 07/08/2009 Ancillary Orders [facility] Breast [facility] External Read [address] [place] [address] Elzbieta Diaz MD [address] [place] [address] Screening Mammogram Social History Tobacco Use Types Packs/Day Years Used Date Smoking Tobacco: Never Assessed Comments Unknown Sex and Gender Information Value Date Recorded Sex Assigned at Not on file 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 This examination was reviewed with the aid of a computer-aided detection system(CAD). The breast tissue density is average. No significant new findings since the prior mammogram(s). Procedure Note Eloisa Emanuel MD - 07/09/2009 Bilateral Mammogram Reason for Exam: Screening Comparison: Comparison is made with the prior exam(s) dated 02.19.06 Findings: Bilateral CC and MLO views were obtained. This examination was reviewed with the aid of a computer-aided detectionsystem(CAD). The breast tissue density is average. No significant new findings since the prior mammogram(s). Elzbieta Diaz MD MAMMO ORDERABLES Final Result documented in this encounter Visit Diagnoses Diagnosis Screening mammogram Other screening mammogram documented in this encounter Care Teams Cops Relationship Specialty Start Date End Date Non-Staff, Physician NO ADDRESS ON FILE PCP - General 06/27/20 documented as of this encounter
--- OUTSIDE RECORDS SUMMARY | 2025-05-01 11:48 | XMS_ITS | Encounter Summary ---
Author Organization [facility] Address [address] [place] [address] Care Team Providers Care Power Driven Brush Maker Name Role Phone Non-Staff, Physician Primary Care Provider Unava ilable Encounter Details Date Type Department Care Team (Latest Contact Info) Description 06/20/2002 Outpatient Historical [facility] [place] [address] 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
--- OUTSIDE RECORDS SUMMARY | 2025-05-01 11:48 | XMS_ITS | Encounter Summary ---
Author Organization [facility] Address [address] [place] [address] Care Team Providers Care Engineer Internship Name Role Phone Non-Staff, Physician Primary Care Provider Unava ilable Encounter Details Date Type Department Care Team (Latest Contact Info) Description 09/05/1999 Outpatient Historical [facility] Medicine [place] [address] [facility] [address] [place] [address] Gerald Alvarado DO NO ADDRESS ON FILE Acute upper respiratory infections of unspecified site (Primary Dx); Contact dermatitis and other eczema, due to unspecified cause Social History Tobacco Use Types Packs/Day Years Used Date Smoking Tobacco: Never Assessed Comments Unknown Sex and Gender Information Value Date Recorded Sex Assigned at Not on file 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
--- OUTSIDE RECORDS SUMMARY | 2025-05-01 11:48 | XMS_ITS | Encounter Summary ---
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
--- OUTSIDE RECORDS SUMMARY | 2025-05-01 11:48 | XMS_ITS | Encounter Summary ---
Author Organization [facility] Address [address] [place] [address] Care Team Providers Care Casting Room Helper Name Role Phone Non-Staff, Physician Primary Care Provider Unava ilable Reason for Visit * Reason Comments Medication Refill Encounter Details Date Type Department Care Team (Late st Contact Info) Description 06/10/2019 Refill [facility] Orthopedics - [facility] [address] [place] [phone] Eloy Ramirez MD [address] [place] [phone] Social History Tobacco Use Types Packs/Day Years Used Date Smoking Tobacco: Never Smokeless Tobacco: Never Alcohol Use Standard Drinks/Week Comments No 0 (1 standard drink = 0.6 oz pur e alcohol) Comments No Sex and Gender Information Value Date Recorded Sex Assigned at Not on file 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 Gender Identity Not on file Sexual Orientation Not on file Occupation Industry Job Start Date Job End Date Not on file Not on file Not on file Not on file documented as of this encounter Plan of Treatment Not on file documented as of this encounter Visit Diagnoses Not on filedocumented in this encounter Additional Health Concerns Assessment Noted Time PHQ-9 Depression Total Score: 1 04/28/20 19 10:00 AM CDT documented as of this encounter Care Teams Casting Room Helper Relationship Specialty Start Date End Date Non-Staff, Physician NO ADDRESS ON FILE PCP - General 06/27/20 documented as of this encounter
--- OUTSIDE RECORDS SUMMARY | 2025-05-01 11:48 | XMS_ITS | Encounter Summary ---
Author Organization [facility] Address [address] [place] [address] Care Team Providers Care Roller Maker Name Role Phone Non-Staff, Physician Primary Care Provider Unava ilable Encounter Details Date Type Department Care Team (Late st Contact Info) Description 11/16/2017 Ancillary Orders [facility] [employer] [facility] [address] [place] [address] Kiesha Del Angel, WATER QUALITY TECHNICIAN [address] [place] [address] Neck pain Social History Tobacco Use Types Packs/Day Years Used Date Smoking Tobacco: Former Smokeless Tobacco: Never Alcohol Use Standard Drinks/Week Comments No 0 (1 standard drink = 0.6 oz pur e alcohol) Comments No Sex and Gender Information Value Date Recorded Sex Assigned at Not on file 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:58 AM AOC DIRECTOR INTELLIGENCE OFFICER Gender Identity Not on file Sexual Orientation Not on file Occupation Industry Job Start Date Job End Date Not on file Not on file Not on file Not on file documented as of this encounter Plan of Treatment Not on file documented as of this encounter Results * XR CERVICAL SPINE 2 OR 3 VIEWS (11/16/2017 11:30 AM AOC DIRECTOR INTELLIGENCE OFFICER) Anatomical Region Laterality Modality Spine Computed Radiogr aphy 11/16/2017 11:3 0 AM AOC DIRECTOR INTELLIGENCE OFFICER Impressions 11/16/2017 12:29 PM AOC DIRECTOR INTELLIGENCE OFFICER IMPRESSION: See below. Exam: XR CERVICAL SPINE 2 OR 3 VIEWS Date/Time of Exam: 11/16/2017 11:30 AM Reason For Exam: Neck pain. Findings: The cervical alignment is unremarkable. There is no loss of vertebral body or disc height. There is prominent multilevel facet joint arthropathy. No thickening of the prevertebral soft tissues. Narrative Procedure Note Yovani Cortez MD - 11/16/2017 IMPRESSION: See below. Exam: XR CERVICAL SPINE 2 OR 3 VIEWS Date/Time of Exam: 11/16/2017 11:30 AM Reason For Exam: Neck pain. Findings: The cervical alignment is unremarkable. There is no loss of vertebral body or disc height. There is prominent multilevel facet joint arthropathy. No thickening of the prevertebral soft tissues. us Kiesha Del Angel WATER QUALITY TECHNICIAN DIAGNOSTIC IMAGING ORDERABL ES Final Result documented in this encounter Visit Diagnoses Diagnosis Neck pain Cervicalgia Neck pain Cervicalgia documented in this encounter Care Teams Roller Maker Relationship Specialty Start Date End Date Non-Staff, Physician NO ADDRESS ON FILE PCP - General 06/27/20 documented as of this encounter
--- OUTSIDE RECORDS SUMMARY | 2025-05-01 11:48 | XMS_ITS | Encounter Summary ---
Author Organization [facility] Address [address] [place] [address] Care Team Providers Care Hydrogen Cell Tender Name Role Phone Non-Staff, Physician Primary Care Provider Unava ilable Encounter Details Date Type Department Care Team (Late st Contact Info) Description 02/19/2006 Outpatient [facility] Breast Center [facility] [address] [place], [place] [id number] Elzbieta Diaz MD [address] [place] [address] Other Screening Mammogram (Primary Dx) Social History Tobacco Use Types Packs/Day Years Used Date Smoking Tobacco: Never Assessed Comments Unknown Sex and Gender Information Value Date Recorded Sex Assigned at Not on file 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
--- OUTSIDE RECORDS SUMMARY | 2025-05-01 11:48 | XMS_ITS | Encounter Summary ---
Author Organization [facility] Address [address] [place] [address] Care Team Providers Care Operational Risk Manager Name Role Phone Non-Staff, Physician Primary Care Provider Unava ilable Reason for Referral * Outpatient Services (Routine) - Closed Specialty Diagnoses / Procedures Referred By Debra beck Referred To Contact Diagnoses Screening mammogram Procedures MAMMO SCREENING BILAT Mirella Mcwilliams, BOBBIN MARKER [address] [place] [address] Phone: tel: fax: Referral ID Status Reason Start Date Expiration Date Visits Re quested Visits Authorized [id number] Closed 10/02/2010 03/31/2011 1 1 GENCY CARE ATTENDANT Encounter Details Date Type Department Care Team (Late st Contact Info) Description 10/02/2010 Ancillary Orders [facility] External Read [address] [place] [address] Mirella Mcwilliams, BOBBIN MARKER [address] [place] [address] Screening mammogram Social History Tobacco Use Types Packs/Day Years Used Date Smoking Tobacco: Never Assessed Comments Unknown Sex and Gender Information Value Date Recorded Sex Assigned at Not on file 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:58 AM EMERGENCY CARE ATTENDANT Gender Identity Not on file Sexual Orientation Not on file documented as of this encounter Plan of Treatment Not on file documented as of this encounter Results * MAMMO SCREENING BILAT (10/02/2010 12:27 PM EMERGENCY CARE ATTENDANT) Anatomical Region Laterality Modality Breast Bilateral Mammography Narrative 10/07/2010 11:44 AM EMERGENCY CARE ATTENDANT Bilateral Mammogram Reason for Exam: Screening Comparison: Comparison is made with the prior exam(s) dated 07.03.09 Findings: Bilateral CC and MLO views were obtained. This examination was reviewed with the aid of a computer-aided detection system(CAD). The breast tissue density is average. No significant new findings since the prior mammogram(s). Procedure Note Branden Cool MD - 10/07/2010 Bilateral Mammogram Reason for Exam: Screening Comparison: Comparison is made with the prior exam(s) dated 07.03.09 Findings: Bilateral CC and MLO views were obtained. This examination was reviewed with the aid of a computer-aided detectionsystem(CAD). The breast tissue density is average. No significant new findings since the prior mammogram(s). External Provider [facility] MAMMO ORDERABLES Final Res ult documented in this encounter Visit Diagnoses Diagnosis Screening mammogram Other screening mammogram documented in this encounter Care Teams Operational Risk Manager Relationship Specialty Start Date End Date Non-Staff, Physician NO ADDRESS ON FILE PCP - General 06/27/20 documented as of this encounter
--- OUTSIDE RECORDS SUMMARY | 2025-05-01 11:48 | XMS_ITS | Encounter Summary ---
Author Organization [facility] Address [address] [place] [address] Care Team Providers Care Manager Of Production Name Role Phone Non-Staff, Physician Primary Care Provider Unava ilable Encounter Details Date Type Department Care Team (Late st Contact Info) Description 07/26/2007 Outpatient Historical [facility] [place] [address] [facility] [address] [place] [address] Social History Tobacco Use Types Packs/Day Years Used Date Smoking Tobacco: Never Assessed Comments Unknown Sex and Gender Information Value Date Recorded Sex Assigned at Not on file 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
--- OUTSIDE RECORDS SUMMARY | 2025-05-01 11:48 | XMS_ITS | Encounter Summary ---
Author Organization [facility] Address [address] [place] [address] Care Team Providers Care Car Hop Name Role Phone Non-Staff, Physician Primary Care Provider Unava ilable Encounter Details Date Type Department Care Team (Late st Contact Info) Description 03/07/2018 Lab Requisition [facility] General [facility] [address] [place] [address] Gerald Alvarado, NO ADDRESS ON FILE Social History Tobacco Use Types Packs/Day Years Used Date Smoking Tobacco: Former Smokeless Tobacco: Never Alcohol Use Standard Drinks/Week Comments No 0 (1 standard drink = 0.6 oz pur e alcohol) Comments No Sex and Gender Information Value Date Recorded Sex Assigned at Not on file 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 Gender Identity Not on file Sexual Orientation Not on file Occupation Industry Job Start Date Job End Date Not on file Not on file Not on file Not on file documented as of this encounter Plan of Treatment Not on file documented as of this encounter Procedures Procedure Name Priority Date/Time Associated Diagnosis Comments HEMOGLOBIN A1C Routine 03/07/2018 8:00 PM CDT LIPID PANEL Routine 03/07/2018 8:00 PM CDT COMPREHENSIVE METABOLIC PANEL Routine 03/07/2018 8:00 PM CDT documented in this encounter Results * (ABNORMAL) COMPREHENSIVE METABOLIC PANEL (03/07/2018 8:00 PM CDT) SODIUM 139 136 - 145 mmol/L 03/08/2018 12:24 AM [facility] POTASSIUM 4.3 3.5 - 5.1 mmol/L 03/08/2018 12:24 AM [facility] CHLORIDE 99 98 - 107 mmol/L 03/08/2018 12:24 AM [facility] CO2 25 22 - 29 mmol/L 03/08/2018 12:24 AM [facility] CALCIUM 9.8 8.8 - 10.2 mg/dL 03/08/2018 12:24 AM [facility] BUN 24(H) 8 - 23 mg/dL 03/08/2018 12:24 AM [facility] CREATININE 1.12(H) 0.51 - 0.95 mg/dL 03/08/2018 12:24 AM [facility] GLUCOSE 142(H) 74 - 106 mg/dL 03/08/2018 12:24 AM [facility] TOTAL PROTEIN 8.0 6.6 - 8.7 g/dL 03/08/2018 12:24 AM [facility] ALBUMIN 4.4 3.5 - 5.2 g/dL 03/08/2018 12:24 AM [facility] BILIRUBIN TOTAL 0.3 0.0 - 1.2 mg/dL 03/08/2018 12:24 AM [facility] ALKALINE PHOSPHATASE 98 35 - 104 U/L 03/08/2018 12:24 AM [facility] AST 15 10 - 35 U/L 03/08/2018 12:24 AM [facility] ALT 25 10 - 35 U/L 03/08/2018 12:24 AM [facility] GFR 49(L) >=60 mL/min/1.7 3 sq meter 03/08/2018 12:24 AM [facility] Comment: eGFR has not been validated for [...] please refer to the GFR result. GFR, 59(L) >=60 mL/min/1.7 3 sq meter 03/08/2018 12:24 AM CDT [facility] ANION GAP 15 12 - 20 mmol/L 03/08/2018 12:24 AM CDT [facility] Blood Collection / Unknown 03/07/2018 8:00 PM CDT 03/07/2018 11:25 PM CDT us Gerald Alvarado DO CHEMISTRY ORDERABLES Final Resu lt Performing Organization Address City/[facility]/ZIP Co de Phone Number [facility] CLIA # [id number] [address] [place] [phone] * (ABNORMAL) HEMOGLOBIN A1C (03/07/2018 8:00 PM CDT) HEMOGLOBIN A1C 8.7(H) 4.8 - 5.9 % 03/08/2018 12:29 AM CDT [facility] EST. AVG GLUCOSE, A1C 203 mg/dL 03/08/2018 12:29 AM CDT [facility] Blood Collection / Unknown 03/07/2018 8:00 PM CDT 03/07/2018 11:25 PM CDT Narrative [facility] - 03/08/2018 12:29 AM CDT HGB A1C INTERPRETATION NORMAL: <5.7% PRE-DIABETES: 5.7 - 6.4% DIABETES: 6.5% OR GREATER us Gerald Alvarado DO CHEMISTRY ORDERABLES Final Resu lt Performing Organization Address City/[facility]/ZIP Co de Phone Number [facility] CLIA # [id number] [address] [place] [phone] * (ABNORMAL) LIPID PANEL (03/07/2018 8:00 PM CDT) CHOLESTEROL 206(H) <200 mg/dL 03/08/2018 12:24 AM CDT [facility] TRIGLYCERIDE 129 <150 mg/dL 03/08/2018 12:24 AM CDT [facility] HDL 47 40 - 59 mg/dL 03/08/2018 12:24 AM T [facility] LDL CALCULATED 133(H) <100 mg/dL 03/08/2018 12:24 AM T [facility] NON-HDL CHOLESTEROL 159(H) <130 mg/dL 03/08/2018 12:24 AM [facility] Blood Collection / Unknown 03/07/2018 8:00 PM CDT 03/07/2018 11:25 PM CDT Narrative [facility] - 03/08/2018 12:24 AM CDT TOTAL CHOLESTEROL mg/dL Desirable <200 Borderline high 200-239 High >=240 TRIGLYCERIDES mg/dL Normal <150 Borderline high 150-199 High 200-499 Very high >=500 HDL CHOLESTEROL mg/dL Low <40 Normal 40-59 Desirable >=60 NON HDL CHOLESTEROL mg/dL Optimal <130 Near Optimal 130-159 Borderline High 160-189 Very High >=190 Calculated LDL mg/dL Optimal <100 Near Optimal 100-129 Borderline High 130-159 High 160-189 Very High >=190 ATPIII Guidelines Reference Ranges for Lipid Panels (NCEP/AMA) us Gerald Alvarado DO CHEMISTRY ORDERABLES Final Resu lt [facility] # [id number] [address] [place] [address] [id number] documented in this encounter Visit Diagnoses Not on filedocumented in this encounter Care Teams Car Hop Relationship Specialty Start Date End Date Non-Staff, Physician NO ADDRESS ON FILE PCP - General 06/27/20 documented as of this encounter
--- OUTSIDE RECORDS SUMMARY | 2025-05-01 11:48 | XMS_ITS | Clinical Summary ---
Author Organization [facility] Address [address] [place] [address] Care Team Providers Care Rickshaw Driver Name Role Phone Caitlin Hood MD Primary Care Provider [phone] Allergies Active Allergy Reactions Criticality Noted Date Comments Bupivacaine Rash Low 11/25/2021 Diazepam Rash Low 11/25/2021 Latex, Natural Rubber Swelling Low 07/08/2010 Metformin Nausea and Vomiting Low 04/24/2017 Medications lancets (OneTouch Delica Plus Lancet) 30 gauge USE TWICE DAILY DIRECTED 100 Each 2 0 Active pantoprazole (PROTONIX) 40 mg Tablet, Delayed Release (E.C.) Take 1 Tablet (40 mg) by mouth daily. 90 Tablet 3 0 Active Insulin [place], Disposable, 31 gauge x 516 Needle Use with injectable insulin pen 100 Each 3 0 Active levothyroxine 50 mcg tablet TAKE 1 TABLET(50 MCG) BY MOUTH DAILY 90 Tablet 1 0 Active ergocalciferol (VITAMIN D2) 50,000 unit capsule Take 50,000 Units by mouth. 0 Active cetirizine (ZyrTEC) 10 mg tabletIndicatio ns:Postnasal drip Take 1 Tablet (10 mg) by mouth daily. At bedtime 30 Tablet 2 0 Active blood sugar diagnostic Strip USE TWICE DAILY DIRECTED 200 Strip 3 0 Active insulin degludec (Tresiba FlexTouch U-200) 200 unit/mL pen syringeIndicati ons:Type 2 diabetes mellitus with hyperglycemia, with long-term current use of insulin ([facility]) INJECT 15 UNITS UNDER THE SKIN DAILY AT BEDTIME. TO BE TITRATED BY 5 UNITS WEEKLY TO A MAXIMUM OF 40 UNITS. 9 mL 0 0 Active Blood-Glucose Meter Kit Monitor glucose BID. 1 Kit PRN 9 Active nystatin (NYSTOP) 100,000 unit/gram powderIndicatio ns:Candidal skin infection APPLY A THIN LAYER TO ABDOMINAL FOLD TWICE DAILY DIRECTED FOR 7 DAYS 60 Gram 1 1 Active montelukast (SINGULAIR) 10 mg tablet TK 1 T PO D 0 Active empagliflozin (JARDIANCE) 10 mg tablet daily. 0 Active chlorthalidone (HYGROTON) 25 mg tablet Take 25 mg by mouth daily. 0 Active diclofenac sodium (VOLTAREN) 1 % gelIndications: S/P knee surgery Apply 4 Grams to affected area 4 times daily. 100 Gram 5 Active Active Problems Problem Noted Date Diagnosed Date Seasonal allergic rhinitis 08/14/2019 Severe obesity (BMI 35.0-39.9) with comorbidity 08/14/2019 Thyromegaly 08/14/2019 Osteoarthritis of spine with radiculopathy, cerv ical region 07/14/2019 Generalized osteoarthritis of multiple sites Essential hypertension 03/10/2019 Anemia 03/10/2019 Preoperative general physical examination 2018 Dyslipidemia 03/10/2019 Primary osteoarthritis of left knee 03/10/2019 Obesity (BMI 30.0-34.9) 03/10/2019 Stage 3 chronic kidney disease 03/10/2019 Ganglion cyst 03/26/2011 Personal history of colonic polyps 11/28/2010 Family history of polyps in the colon 11/07/2010 GERD (gastroesophageal reflux disease) 1 Type 2 diabetes mellitus wit h stage 3 chronic kidney disease, without long-term current use of insulin 10/10/2010 Encounters Date Type Department Care Team Description 04/30/2025 1:40 PM CDT Office Visit [facility] [address] [address] Yang Moon MD Cervical myofascial pain syndrome (Primary Dx); Cervical stenosis of spinal canal 04/19/2025 Abstract [facility] [address] [address] Jonathan Snell MD 04/16/2025 3:45 PM CDT Work Comp [facility] [address] [address] Jonathan Snell MD Cervicalgia (Primary Dx); DDD (degenerative disc disease), cervical; Cervical dystonia; Myalgia; Cervicogenic headache; Carpal tunnel syndrome of right wrist 04/03/2025 External Device Data STL ABSTRACTION Provider, Abstract 03/29/2025 Abstract [facility] [address] [address] Samra Hyman CMA 03/14/2025 10:30 AM CDT - 03/14/2025 11:59 PM CDT Hospital Encounter [facility] [address] [address] Yang Moon MD Discharge Disposition: Home or Self Care 03/14/2025 10:05 AM CDT - 03/14/2025 11:59 PM CDT Hospital Encounter [facility] [address] [address] Yang Moon MD Discharge Disposition: Home or Self Care 03/12/2025 Telephone [facility] [address] [address] Zayra Acuna V., IONA RFA pre-procedure call 02/28/2025 Telephone [facility] [address] [address] Agustina Sheldon Returning a call 02/27/2025 12:03 PM CDT - 02/27/2025 11:59 PM CDT Hospital Encounter [facility] [address] [address] Yang Moon MD Discharge Disposition: Home or Self Care 02/27/2025 10:33 AM CDT - 02/27/2025 11:59 PM CDT Hospital Encounter [facility] [address] [address] Yang Moon MD Discharge Disposition: Home or Self Care 02/21/2025 External Device Data STL ABSTRACTION Provider, Abstract 02/20/2025 External Device Data STL ABSTRACTION Provider, Abstract 02/14/2025 12:28 PM CDT - 02/14/2025 11:59 PM CDT Hospital Encounter [facility] [address] [address] Yang Moon MD Discharge Disposition: Home or Self Care 02/14/2025 11:06 AM CDT - 02/14/2025 11:59 PM CDT Hospital Encounter [facility] [address] [address] Yang Moon MD Discharge Disposition: Home or Self Care 02/13/2025 External Device Data STL ABSTRACTION Provider, Abstract 01/31/2025 10:45 AM CDT - 01/31/2025 11:59 PM CDT Hospital Encounter [facility] [address] [address] Yang Moon MD Discharge Disposition: Home or Self Care 01/31/2025 10:03 AM CDT - 01/31/2025 11:59 PM CDT Hospital Encounter [facility] [address] [phone] Yang Moon MD Discharge Disposition: Home or Self Care 01/31/2025 Orders Only [facility] [address] [place] [phone] Mignon Ayala PCA Neck pain (Primary Dx) from Last 3 Months Immunizations Immunization Administration Dates Next Due (PNEUMOVAX 23)(50 YRS UP) PN EUMOCOCCAL POLYSACCHARIDE (PPV23) 0.5 ML, IM 07/04/2002 (TDVAX)(7 YRS UP) TETANUS AN D DIPHTHERIA TOXOIDS, ADSORBED (2 LF OF TETANUS TOXOID AND 2 LF OF DIPHTHERIA TOXOID), 0.5ML (PF), IM 06/20/2002,03/14/1999 Influenza Seasonal Unspecified Formulation IM ,07/22/2007 PREVNAR (PCV13) pneumococcal 13-valent conjugate Vaccine 06/12/2019 Pneumococcal 13-adrien Conj Vacc Patient Supplied 0 06/12/2019,12/09/2018 Family History Medical History Relation Name Comments Unknown Brother 1 1/2 mat Elpidio Unknown Brother 2 / mat Jonathan Other Brother 3 / pat Jignesh homicide victi m No Known Problems Brother 4 12 pat Carlos Respiratory Disease Brother 5 1/2 pat James smoker Cancer Father Tom Dyer Smotherman Stroke Maternal Grandfather Arthritis-osteo Mother Alaina Erlinda Costa Cancer Mother Alaina M Igor Diabetes Mother Alaina M Igor Heart Disease Mother Alaina M Igor Respiratory Disease Mother Alaina M Igor never sm oked Cancer Other FATHER LYMPHOMA, PROST RATE, COLON Cancer Paternal Uncle 1 ABIGAIL LUNG Cancer Paternal Uncle 2 CHAVIS THROAT Stroke Sister 1 ADDIE Respiratory Disease Sister 2 AGNIESZKA long pina e smoker Other Sister 3 half mat Anat migraines Cancer Sister 4 1/2 mat Carie throat, smoker Cancer Sister 5 1/2 mat Irma pancreatic No Known Problems Sister 6 1/2 mat Liz Diabetes Sister 7 1/2 pat Bev Other Sister 8 1/2 pat Priscilla blood disease Unknown Sister 9 1/2 pat Dana Cancer Sister 10 Irma Blanks Cancer Sister 11 Carie Heiney Diabetes Sister 12 Bev Teri Alex Asthma Son 1 KATHRYN (RED) Healthy Son 2 URBAN back problems Other Son 3 GORDON transverse myel itis Breast Cancer Neg Hx Ovarian Cancer Neg Hx Relation Name Status Comments Brother 1 1/2 mat Elpidio Alive Brother 2 1/2 mat Jonathan Alive Brother 3 1/2 pat Jignesh Brother 4 1/2 pat Carlos Alive Brother 5 1/2 pat James Alive Daughter NONE Father Tom Dyer Smotherman Maternal Grandfather Maternal Grandmother Mother Alaina Costa Alive Other FATHER Alive Paternal Uncle 1 ABIGAIL Paternal Uncle 2 CHAVIS Sister 1 ADDIE Alive Sister 2 AGNIESZKA Alive Sister 3 half mat Anat Alive Sister 4 1/2 mat Carie Alive Sister 5 1/2 mat Irma Sister 6 1/2 mat Liz Alive Sister 7 1/2 pat Bev Alive Sister 8 1/2 pat Priscilla Sister 9 1/2 pat Dana Alive Sister 10 Irma Blanks Sister 11 Carie Heiney Sister 12 Bev Kun Son 1 KATHRYN (RED) Alive Son 2 URBAN Alive Son 3 GORDON Alive Social History Tobacco Use Types Packs/Day Years Used Date Smoking Tobacco: Former Cigarettes Smokeless Tobacco: Never Tobacco Cessation:Counseling Given: Not Answered Comments:Quit smoking: i pack would last for several months at a time Alcohol Use Standard Drinks/Week Comments No 0 (1 standard drink = 0.6 oz pur e alcohol) Comments No Sex and Gender Information Value Date Recorded Sex Assigned at Female 07/19/2024 5:22 PM CDT Legal Sex Female 1:29 AM MICROFILM TECHNICIAN Gender Identity Female 07/19/2024 5:22 PM CDT Sexual Orientation Not on file Last Filed Vital Signs Vital Sign Reading Time Taken Comments Blood Pressure 114/76 04/16/2025 3:31 PM CDT Pulse 60 04/30/2025 1:40 PM CDT Temperature 36.2 C (97.1 F) 06/04/2024 11:46 AM CDT Respiratory Rate 18 03/14/2025 12:09 PM CDT Oxygen Saturation 99% 04/30/2025 1:40 PM CDT Inhaled Oxygen Concentration - - Weight 79.4 kg (175 lb) 04/30/2025 1:40 PM CDT Height 167.6 cm (5' 6 ) 04/16/2025 3:31 PM CDT Body Mass Index 28.25 04/16/2025 3:31 PM CDT Plan of Treatment Upcoming Encounters Date Type Department Care Team (Late st Contact Info) Description 05/08/2025 9:15 AM CDT Procedure visit [facility] [address] [facility] [address] [place] [address] [place] [address] [facility] [address] [place] [address] Health Maintenance Due Date Last Done Comments FIT-DNA Q 3 years 1998 FIT/ DNA Q 3 YEARS (AUTO ORDER) 1998 FIT/FOBT Q 1 YEAR (AUTO ORDER) 1998 FIT/FOBT Q 1 year 1998 FLEX SIG/CT COLONOGRAPHY Q 5 YEARS (AUTO ORDER) 1998 Flex Sig/CT Colonography Q 5 years 1998 DTAP/TDAP/TD VACCINES (1 - Tdap) 06/21/2002 06/20/20 02, 03/14/1999 RSV VACCINE (60+ or ) (1 - Risk 60-74 years 1-dose series) 2013 DIABETES ANNUAL FOOT EXAM 05/10/2020 05/10/2019 ZOSTER VACCINE (2 of 3) 10/01/2020 08/06/2020, 05/24 LDL CHOLESTEROL ANNUAL 10/10/2020 0, 12/13/2018, 07/11/2018, Additional history exists DIABETES MICROALBUMIN ANNUAL SCREEN 2021 2020, 12/26/2019, 12/13/2018 DIABETES ANNUAL RETINAL EXAM 04/02/2024, 03/30/2022, 02/05/2022, Additional history exists BREAST CANCER SCREENING 04/27/2024 04/27/20 23, 04/27/2023, 04/13/2022, Additional history exists COVID-19 Vaccine (3 - 2023-2 5 season) 2024 05/26/2021, 04/28/2021 Medicare Advantage (ID) Preventative Visit/Annual Wellness Visit 10/04/2024 INFLUENZA VACCINE (#1) 2025 3, 05/14/2022, 07/14/2021, Additional history exists DIABETES HBA1C Q 6 MONTHS 06/21/20252024, 09/03/2023, 05/19/2023, Additional history exists OSTEOPOROSIS SCREENING 02/23/2027 2, 04/04/2019, 04/04/2019 COLORECTAL CANCER SCREENING (AUTO ORDER) 02/20/2029 02/20/2019 COLORECTAL SCREENING 02/20/2029 02/20/2019 Colorectal Cancer Screening (AUTO ORDER) 02/20/2029 Colorectal Cancer Screening 02/20/2029 Medical Devices Implanted Type Area Child Welfare Director Device Identifier Shelf Expiration Date Model / Serial / Lot Cement Simplex Hvisc 6194-1-010 - [id number] Implanted:Qty : 1 on 03/21/2019 by Eloy Ramirez MD Cement Left: Knee [employer] 09/02/2020 6194-1-010 / / [id number] Cement Simplex Hvisc 6194-1-010 - [id number] Implanted: by Eloy Ramirez MD (Quantity not on file) Cement Left: Knee [employer] 09/02/2020 6194-1-010 / / [id number] Comp Fem Attn Cr Cmnt Sz5 1504-00-105 - [id number] Implanted:Qty : 1 on 03/21/2019 by Eloy Ramirez MD Knee Left: Knee [employer] 01/31/2029 [id number] / / [id number] Comp Tib Attn Fb Cmnt Sz5 1506-70-005 - [id number] Implanted:Qty : 1 on 03/21/2019 by Eloy Ramirez MD Knee Left: Knee [employer] 01/01/2029 [id number] / / [id number] Ins Attn Fb Cr Sz5 7mm 1516-20-507 - [id number] Implanted:Qty : 1 on 03/21/2019 by Eloy Ramirez MD Knee Left: Knee [employer] 10/03/2023 [id number] / / [id number] Procedures Procedure Name Priority Date/Time Associated Diagnosis Comments XR FLUORO NEEDLE GUIDANCE SPINE Routine 03/14/2025 11:47 AM CDT XR FLUORO NEEDLE GUIDANCE SPINE Routine 02/27/2025 12:23 PM CDT XR FLUORO NEEDLE GUIDANCE SPINE Routine 02/14/2025 12:48 PM CDT XR FLUORO NEEDLE GUIDANCE SPINE Routine 01/31/2025 11:38 AM CDT MICROALBUMIN/CREATIN INE RATIO, RANDOM UR Routine 2020 8:27 AM MICROFILM TECHNICIAN MAMMO SCREEN BILAT W OR WO CAD Routine 02/29/2020 1:35 PM CDT Breast cancer screening by mammogram LIPID PANEL Routine 10/10/2019 3:25 PM MICROFILM TECHNICIAN HEMOGLOBIN A1C Routine 08/12/2019 7:36 AM MICROFILM TECHNICIAN HM DIABETES EYE EXAM 05/24/2019 12:00 AM CDT XR DEXA BONE DENSITY AXIAL 1 OR MORE SITES Routine 04/04/2019 1:35 PM CDT Postmenopausal from Last 3 Months or Most Recently Relevant to Health Maintenance Results * XR FLUORO NEEDLE GUIDANCE SPINE (03/14/2025 11:47 AM CDT) Only the most recent of4 resultswithin the time period is included. Narrative [facility] - 03/14/2025 11:49 AM CDT Order information only. Exam was auto-finalized. us Yang Moon MD DIAGNOSTIC IMAGING ORDERABLES F inal Result [facility] CLIA# [id number] [facility] [address] [place] [address] * MICROALBUMIN/CREATININE RATIO, RANDOM UR (2020 8:27 AM MICROFILM TECHNICIAN) MICROALBUMIN, URINE <1.2 No Reference Range mg/dL 2020 9:13 AM [facility] CREATININE, URINE 97.1 29.0 - 226.0 mg/dL 2020 9:13 AM [facility] Comment:Reference Range vari es with fluid intake and diet. MICROALBUMIN/C REAT RATIO, UR <12.4 <25.0 mg/g 2020 9:13 AM [facility] Urine URINE SPECIMEN OBTAINED BY CLEAN CATCH PROCEDURE / Unknown Collection / Unknown 2020 8:27 AM MICROFILM TECHNICIAN 2020 8:27 AM MICROFILM TECHNICIAN Narrative [facility] - 2020 9:13 AM MICROFILM TECHNICIAN Condition Microalbumin/Creat ratio Normal Males <17 Normal Females <25 Microalbuminuria Males 17-299 Microalbuminuria Females 25-299 Overt proteinuria >=300 us Irma Maurer NP URINE ORDERABLES Fin al Result Performing Organization Address City/State/[facility] Co de Phone Number [id number] [address] [place] [address] [facility] CLIA # [id number] [address] [place] [address] * MAMMO SCREEN BILAT W OR WO CAD (02/29/2020 1:35 PM CDT) Anatomical Region Laterality Modality Breast Bilateral Other Narrative 02/29/2020 4:28 PM CDT Bilateral Mammogram Reason for Exam: Screening Comparison: Compared to: 12/21/2018 MAMMO SCREEN BILAT W OR WO CAD, 03/15/2013 MAMMO DIGITAL SCREEN BILAT, 09/14/2011 MAMMO SCREENING BILAT, 10/02/2010 MAMMO SCREENING BILAT, and 07/08/2009 MAMMO SCREENING BILAT Findings: Bilateral CC and MLO views were obtained. This examination was reviewed with the aid of a computer-aided detection system(CAD). Breast Composition: There are scattered areas of fibroglandular density. There are no suspicious masses, areas of architectural distortions, or microcalcifications to suggest malignancy. No significant new findings since the prior mammogram(s). Impression: Negative screening mammogram. Recommendation: Routine annual follow-up Overall Assessment: Birads Category 1: Negative Procedure Note Tiffanie Cartagena, - 02/24/2021 Bilateral Mammogram Reason for Exam: Screening Comparison: Compared to: 12/21/2018 MAMMO SCREEN BILAT W OR WO CAD, 03/15/2013 MAMMO DIGITAL SCREEN BILAT, 09/14/2011 MAMMO SCREENING BILAT, 10/02/2010 MAMMO SCREENING BILAT, and 07/08/2009 MAMMO SCREENING BILAT Findings: Bilateral CC and MLO views were obtained. This examination was reviewed with the aid of a computer-aided detection system(CAD). Breast Composition: There are scattered areas of fibroglandular density. There are no suspicious masses, areas of architectural distortions, or microcalcifications to suggest malignancy. No significant new findings since the prior mammogram(s). Impression: Negative screening mammogram. Recommendation: Routine annual follow-up Overall Assessment: Birads Category 1: Negative Zeus Ohara MD MAMMO ORDERABLES Final Re sult * LIPID PANEL (10/10/2019 3:25 PM MICROFILM TECHNICIAN) CHOLESTEROL 153 <200 mg/dL 10/11/2019 8:48 PM MICROFILM TECHNICIAN [facility] TRIGLYCERIDE 139 <150 mg/dL 10/11/2019 8:48 PM MICROFILM TECHNICIAN [facility] HDL 46 40 - 59 mg/dL 10/11/2019 8:48 PM MICROFILM TECHNICIAN [facility] LDL CALCULATED 79 <100 mg/dL 10/11/2019 8:48 PM MICROFILM TECHNICIAN [facility] NON-HDL CHOLESTEROL 107 <130 mg/dL 10/11/2019 8:48 PM MICROFILM TECHNICIAN [facility] Blood Collection / Unknown 10/10/2019 3:25 PM MICROFILM TECHNICIAN 10/11/2019 7:50 PM MICROFILM TECHNICIAN Narrative [facility] - 10/11/2019 8:48 PM MICROFILM TECHNICIAN TOTAL CHOLESTEROL mg/dL Desirable<200 Borderline [id number] High>=240 TRIGLYCERIDES mg/dL Normal<150 Borderline [id number] [id number] Very high>=500 HDL CHOLESTEROL mg/dL Low<40 Gwawqg20-99 Desirable>=60 NON HDL CHOLESTEROL mg/dL Optimal<130 Near [id number] Borderline Lovu292-887 Very High>=190 Calculated LDL mg/dL Optimal<100 Near [id number] Borderline Rhxb863-161 Wniz467-732 Very High>=190 ATPIII Guidelines Reference Ranges for Lipid Panels (NCEP/AMA) us Jonathan BUSTAMANTE CHEMISTRY ORDERABLES Final Re sult Performing Organization Address [facility] Co de Phone Number [facility] CLIA# [id number] [place] [address] * (ABNORMAL) HEMOGLOBIN A1C (08/12/2019 7:36 AM MICROFILM TECHNICIAN) HEMOGLOBIN A1C 6.3(H) <=5.6 % 08/12/2019 7:55 AM MICROFILM TECHNICIAN [facility] EST. AVG GLUCOSE, A1C 134 mg/dL 08/12/2019 7:55 AM [facility] Blood Venipuncture / Unknown 08/12/2019 7:36 AM MICROFILM TECHNICIAN 08/12/2019 7:36 AM MICROFILM TECHNICIAN Narrative [facility] - 08/12/2019 7:55 AM MICROFILM TECHNICIAN HGB A1C INTERPRETATION NORMAL: <5.7% PRE-DIABETES: 5.7 - 6.4% DIABETES: 6.5% OR GREATER Zeus Ohara MD CHEMISTRY ORDERABLES Rekha l Result Performing Organization Address [facility] Co de Phone Number [facility] CLIA # [id number] [address] [place] [address] [facility] CLIA # [id number] [address] [place] [address] * DIABETES EYE EXAM (05/24/2019 12:00 AM CDT) Sgf Scanning HEALTH MAINTENANCE Final Result * XR DEXA BONE DENSITY AXIAL 1 OR MORE SITES (04/04/2019 1:35 PM CDT) Anatomical Region Laterality Modality Other Impressions 04/04/2019 7:12 PM CDT Normal bone density NOF guidelines recommend consideration of FDA-approved medical therapies in patients with FRAX determined 10-year probabilities of hip/major osteoporosis-related fractures equal or greater than 3%/20% respectively. Consider assessing fracture risk using the FRAX analysis tool for guidance of clinical management available online at www.shef.ac.uk/FRAX/. [employer] for Select DXA and the Femoral Neck BMD value. Narrative 04/04/2019 7:12 PM CDT DEXA Evaluation of the Lumbar Spine and Left Proximal Femur Reason for Consultation: Osteoporosis screening.Evaluation of bone mineral density. The following absorptiometry data were obtained. The quality of this examination is acceptable with regards to count density, processed images, data display and lack of important artifacts (including but not limited to motion and attenuation artifacts). Comparison: None L1-L4 BMD (g/cm2): 1.129 Adult T-score: 0.7 Left Femoral Neck BMD (g/cm2): 0.984 Adult T-score: 1.2 Left Total Hip BMD (g/cm2): 1.162 Adult T-score: 1.8 N.B. Changes in density of <=0.05 g/cm2 are not statistically significant. Definitions: T-score > -0.99 = Normal T-score -1.00 to -1.49 = mild osteopenia T-score -1.50 to -1.99 = moderate osteopenia T-score -2.00 to -2.49 = severe osteopenia T-score < -2.50 = osteoporosis RECOMMENDATIONS: Normal: Low risk for fracture - f/u in 2 years Mild/Mod osteopenia: Moderate risk for fracture - f/u in 1 year Severe osteopenia: Moderate/high risk for fracture - f/u in 1 year Osteoporosis: High risk for fracture - f/u in 1 year Procedure Note Junior Barahona, DO - 02/24/2021 DEXA Evaluation of the Lumbar Spine and Left Proximal Femur Reason for Consultation: Osteoporosis screening.Evaluation of bone mineral density. The following absorptiometry data were obtained. The quality of this examination is acceptable with regards to count density, processed images, data display and lack of important artifacts (including but not limited to motion and attenuation artifacts). Comparison: None L1-L4 BMD (g/cm2): 1.129 Adult T-score: 0.7 Left Femoral Neck BMD (g/cm2): 0.984 Adult T-score: 1.2 Left Total Hip BMD (g/cm2): 1.162 Adult T-score: 1.8 N.B. Changes in density of <=0.05 g/cm2 are not statistically significant. Definitions: T-score > -0.99 = Normal T-score -1.00 to -1.49 = mild osteopenia T-score -1.50 to -1.99 = moderate osteopenia T-score -2.00 to -2.49 = severe osteopenia T-score < -2.50 = osteoporosis RECOMMENDATIONS: Normal: Low risk for fracture - f/u in 2 years Mild/Mod osteopenia: Moderate risk for fracture - f/u in 1 year Severe osteopenia: Moderate/high risk for fracture - f/u in 1 year Osteoporosis: High risk for fracture - f/u in 1 year IMPRESSION Normal bone density NOF guidelines recommend consideration of FDA-approved medical therapies in patients with FRAX determined 10-year probabilities of hip/major osteoporosis-related fractures equal or greater than 3%/20% respectively. Consider assessing fracture risk using the FRAX analysis tool for guidance of clinical management available online at www.shef.ac.uk/FRAX/. [employer] for Select DXA and the Femoral Neck BMD value. Jonathan BUSTAMANTE DIAGNOSTIC IMAGING ORDERABLES Final Result from Last 3 Months or Most Recently Relevant to Health Maintenance Insurance MEDICAID [place] BCBS MEDICARE HMO * Guarantor: URBAN SAHAA Martínez Account Type Relation to Patient Date of Phone Billing Address Personal/Family [address] [place] [address] [employer] Medicare Part D MARLA RED Care Teams Rickshaw Driver Relationship Specialty Start Date End Date Caitlin Hood MD [address] [place] [address] PCP - General Family Practice 02/24/23
--- OUTSIDE RECORDS SUMMARY | 2025-05-01 11:48 | XMS_ITS | Encounter Summary ---
Author Organization [facility] Address [address] [place] [address] Care Team Providers Care Federal Mediation Commissioner Name Role Phone Non-Staff, Physician Primary Care Provider Unava ilable Encounter Details Date Type Department Care Team (Latest Contact Info) Description 10/10/1999 Outpatient Historical [facility] [place] [address] [facility] [address] [place] [address] Gerald Alvarado DO NO ADDRESS ON FILE Lipoma of unspecified site (Primary Dx) Social History Tobacco Use Types Packs/Day Years Used Date Smoking Tobacco: Never Assessed Comments Unknown Sex and Gender Information Value Date Recorded Sex Assigned at Not on file 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:58 AM NEWSPAPER REPORTER Gender Identity Not on file Sexual Orientation Not on file documented as of this encounter Plan of Treatment Not on file documented as of this encounter Visit Diagnoses Diagnosis Lipoma of unspecified site- Primary documented in this encounter Care Teams Federal Mediation Commissioner Relationship Specialty Start Date End Date Non-Staff, Physician NO ADDRESS ON FILE PCP - General 06/27/20 documented as of this encounter
--- OUTSIDE RECORDS SUMMARY | 2025-05-01 11:48 | XMS_ITS | Encounter Summary ---
Author Organization [facility] Address [address] [place] [address] Care Team Providers Care Senior Editor Name Role Phone Non-Staff, Physician Primary Care Provider Unava ilable Encounter Details Date Type Department Care Team (Late st Contact Info) Description 04/26/2017 Lab Requisition [facility] General Laboratory Services [place] [address] [place] [address] Gerald Alvarado, NO ADDRESS ON FILE Social History Tobacco Use Types Packs/Day Years Used Date Smoking Tobacco: Former Smokeless Tobacco: Never Alcohol Use Standard Drinks/Week Comments No 0 (1 standard drink = 0.6 oz pur e alcohol) Comments No Sex and Gender Information Value Date Recorded Sex Assigned at Not on file 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 AVG GLUCOSE, A1C 326 mg/dL 04/26/2017 10:36 PM CDT [facility] Blood 04/26/2017 8:26 PM CDT 04/26/2017 9:38 PM CDT us Gerald Alvarado DO CHEMISTRY ORDERABLES Final Resu lt [facility] CLIA # [id number] [address] [place] [address] * (ABNORMAL) COMPREHENSIVE METABOLIC PANEL (04/26/2017 8:26 PM CDT) SODIUM 139 136 - 145 mmol/L 04/26/2017 10:36 PM T [facility] POTASSIUM 3.7 3.5 - 5.1 mmol/L 04/26/2017 10:36 PM [facility] CHLORIDE 99 98 - 107 mmol/L 04/26/2017 10:36 PM [facility] CO2 23 22 - 29 mmol/L 04/26/2017 10:36 PM T [facility] CALCIUM 9.6 8.8 - 10.2 mg/dL 04/26/2017 10:36 PM [facility] BUN 13 8 - 23 mg/dL 04/26/2017 10:36 PM T [facility] CREATININE 0.86 0.51 - 0.95 mg/dL 04/26/2017 10:36 PM T [facility] GLUCOSE 203(H) 74 - 106 mg/dL 04/26/2017 10:36 PM [facility] TOTAL PROTEIN 7.7 6.6 - 8.7 g/dL 04/26/2017 10:36 PM [facility] ALBUMIN 4.1 3.5 - 5.2 g/dL 04/26/2017 10:36 PM [facility] BILIRUBIN TOTAL 0.4 0.0 - 1.2 mg/dL 04/26/2017 10:36 PM [facility] ALKALINE PHOSPHATASE 105(H) 35 - 104 U/L 04/26/2017 10:36 PM [facility] AST 14 10 - 35 U/L 04/26/2017 10:36 PM [facility] ALT 19 10 - 35 U/L 04/26/2017 10:36 PM [facility] GFR >60 >=60 mL/min/1.7 3 sq meter 04/26/2017 10:36 PM [facility] Comment: eGFR has not been validated [...] GFR, >60 >=60 mL/min/1.7 3 sq meter 04/26/2017 10:36 PM [facility] ANION GAP 17 12 - 20 mmol/L 04/26/2017 10:36 PM [facility] Blood 04/26/2017 8:26 PM CDT 04/26/2017 9:38 PM CDT us Gerald Alvarado DO CHEMISTRY ORDERABLES Final Resu lt [facility] CLIA # [id number] [address] [place] [address] documented in this encounter Visit Diagnoses Not on filedocumented in this encounter Care Teams Senior Editor Relationship Specialty Start Date End Date Non-Staff, Physician NO ADDRESS ON FILE PCP - General 06/27/20 documented as of this encounter
--- OUTSIDE RECORDS SUMMARY | 2025-05-01 11:48 | XMS_ITS | Encounter Summary ---
Author Organization [facility] Address [address] [place] [address] Care Team Providers Care Bar Assistant Name Role Phone Non-Staff, Physician Primary Care Provider Unava ilable Encounter Details Date Type Department Care Team (Late st Contact Info) Description 02/05/2020 Ancillary Orders [facility] [address] [place] [address] Kory Garza, COMPUTER OPERATIONS ANALYST [address] [address] Pain in left knee Social History Tobacco Use Types Packs/Day Years Used Date Smoking Tobacco: Never Smokeless Tobacco: Never Alcohol Use Standard Drinks/Week Comments No 0 (1 standard drink = 0.6 oz pur e alcohol) Comments No Sex and Gender Information Value Date Recorded Sex Assigned at Not on file 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 Exam: XR KNEE 3 VW LEFT Date/Time of Exam: 02/05/2020 12:48 PM Reason For Exam: See Diagnosis. Diagnosis: Pain in left knee. Comparison: 07/31/2019. Findings: No fracture or subluxation. Intact left total knee prosthesis. No joint effusion. IMPRESSION: 1. No acute abnormality or significant change. [id number] Narrative Procedure Note Lewis Snell MD - 02/08/2020 IMPRESSION: Please see below. Exam: XR KNEE 3 VW LEFT Date/Time of Exam: 02/05/2020 12:48 PM Reason For Exam: See Diagnosis. Diagnosis: Pain in left knee. Comparison: 07/31/2019. Findings: No fracture or subluxation. Intact left total knee prosthesis. No joint effusion. IMPRESSION: 1. No acute abnormality or significant change. [id number] us Dj Gross COMPUTER OPERATIONS ANALYST DIAGNOSTIC IMAGING ORDERABLES Fi nal Result documented in this encounter Visit Diagnoses Diagnosis Pain in left knee Pain in joint, lower leg Pain in left knee Pain in joint, lower leg documented in this encounter Additional Health Concerns Assessment Noted Time PHQ-9 Depression Total Score: 1 04/28/20 19 10:00 AM CDT documented as of this encounter Care Teams Bar Assistant Relationship Specialty Start Date End Date Non-Staff, Physician NO ADDRESS ON FILE PCP - General 06/27/20 documented as of this encounter
--- OUTSIDE RECORDS SUMMARY | 2025-05-01 11:48 | XMS_ITS | Encounter Summary ---
Author Organization [facility] Address [address] [place] [address] Care Team Providers Care Data Analytics Chief Scientist Name Role Phone Non-Staff, Physician Primary Care Provider Unava ilable Encounter Details Date Type Department Care Team (Latest Contact Info) Description 12/09/1998 Outpatient Historical [facility] Medicine [place] [address] [facility] [address] [place] [address] Gerald Alvarado DO NO ADDRESS ON FILE Unspecified gastritis and gastroduodenitis without mention of hemorrhage (Primary Dx); Acute upper respiratory infections of unspecified site Social History Tobacco Use Types Packs/Day Years Used Date Smoking Tobacco: Never Assessed Comments Unknown Sex and Gender Information Value Date Recorded Sex Assigned at Not on file 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
--- OUTSIDE RECORDS SUMMARY | 2025-05-01 11:48 | XMS_ITS | Encounter Summary ---
Author Organization [facility] Address [address] [place] [address] Care Team Providers Care Financial Engineer Name Role Phone Non-Staff, Physician Primary Care Provider Unava ilable Encounter Details Date Type Department Care Team (Late st Contact Info) Description 07/10/2013 Ancillary Orders [facility] General Laboratory Services [place] [address] [place] [address] Sick Social History Tobacco Use Types Packs/Day Years Used Date Smoking Tobacco: Former Alcohol Use Standard Drinks/Week Comments No 0 (1 standard drink = 0.6 oz pur e alcohol) Comments No Sex and Gender Information Value Date Recorded Sex Assigned at Not on file 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:58 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 Gender Identity Not on file Sexual Orientation Not on file Occupation Industry Job Start Date Job End Date Not on file Not on file Not on file Not on file documented as of this encounter Plan of Treatment Not on file documented as of this encounter Procedures Procedure Name Priority Date/Time Associated Diagnosis Comments MICROALBUMIN/CREATININ E RATIO, RANDOM UR Routine 07/10/2013 6:48 PM CDT Sick [ICD-9-CM] HEMOGLOBIN A1C Routine 07/10/2013 6:48 PM CDT Sick [ICD-9-CM] COMPREHENSIVE METABOLIC PANEL Routine 07/10/2013 6:48 PM CDT Sick [ICD-9-CM] documented in this encounter Results * MICROALBUMIN/CREATININE RATIO, RANDOM UR (07/10/2013 6:48 PM CDT) CREATININE, URINE 27 mg/dL 07/11/2013 7:32 AM CDT [facility] [place] MICROALBUMIN/C REAT RATIO, UR 0.0 - 30.0 mg/g Creatinine 07/11/2013 7:32 AM CDT [facility] [place] Comment:Couldn't calculate MICROALBUMIN, URINE <0.2 mg/dL 07/11/2013 7:32 AM CDT [facility] [place] Urine specimen (specimen) Collection / Unknown 07/10/2013 6:48 PM CDT 07/10/2013 10:06 PM CDT aCsh Wiley MD URINE ORDERABLES Final Result [facility] [place] CLIA # [id number] [address] [place] [id number] * (ABNORMAL) COMPREHENSIVE METABOLIC PANEL (07/10/2013 6:48 PM CDT) SODIUM 141 136 - 145 mmol/L 07/10/2013 10:48 PM CDT [facility] [place] POTASSIUM 3.7 3.5 - 5.1 mmol/L 07/10/2013 10:48 PM CDT [facility] [place] CHLORIDE 104 98 - 107 mmol/L 07/10/2013 10:48 PM CDT [facility] [place] CO2 29 21 - 32 mmol/L 07/10/2013 10:48 PM CDT [facility] [place] CALCIUM 9.2 8.5 - 10.1 mg/dL 07/10/2013 10:48 PM CDT [facility] [place] BUN 12 7 - 18 mg/dL 07/10/2013 10:48 PM CDT [facility] [place] CREATININE 0.80 0.60 - 1.30 mg/dL 07/10/2013 10:48 PM CDT [facility] GLUCOSE 122(H) 74 - 106 mg/dL 07/10/2013 10:48 PM [facility] TOTAL PROTEIN 7.9 6.4 - 8.2 g/dL 07/10/2013 10:48 PM [facility] ALBUMIN 3.8 3.4 - 5.0 g/dL 07/10/2013 10:48 PM [facility] BILIRUBIN TOTAL 0.3 0.2 - 1.0 mg/dL 07/10/2013 10:48 PM [facility] ALKALINE PHOSPHATASE 102 50 - 136 U/L 07/10/2013 10:48 PM [facility] [place] AST 17 15 - 37 U/L 07/10/2013 10:48 PM [facility] ALT 31 30 - 65 U/L 07/10/2013 10:48 PM [facility] GFR 73 >=60 mL/min/1.7 3 sq meter 07/10/2013 10:48 PM [facility] Comment: eGFR has not been validated for use in the elderly (> 70 years of age), women, patients with serious co-morbid conditions, or persons with extremes of body size or muscle mass and should also be interpreted with caution in patients with acute kidney failure, dialysis dependant patients, patients reporting exceptional dietary intake (e.g. vegetarian diet, high protein diets, creatine supplementation), and patients with severe liver disease. Based on National Kidney Disease Education Program GFR, 89 >=60 mL/min/1.7 3 sq meter 07/10/2013 10:48 PM [facility] [place] [facility] Comment: eGFR has not been validated for use in the elderly (> 70 years of age), women, patients with serious co-morbid conditions, or persons with extremes of body size or muscle mass and should also be interpreted with caution in patients with acute kidney failure, dialysis dependant patients, patients reporting exceptional dietary intake (e.g. vegetarian diet, high protein diets, creatine supplementation), and patients with severe liver disease. Based on National Kidney Disease Education Program Blood specimen (specimen) Venipuncture - Lab Collect / Unknown 07/10/2013 6:48 PM CDT 07/10/2013 10:06 PM CDT Cash Wiley MD CHEMISTRY ORDERABLES Fi nal Result Performing Organization Address [facility] de Phone Number [facility] CLIA # [id number] [address] [place] [phone] * (ABNORMAL) HEMOGLOBIN A1C (07/10/2013 6:48 PM CDT) HEMOGLOBIN A1C 8.2(H) 4.5 - 6.2 % 07/10/2013 11:40 PM CDT [facility] EST. AVG GLUCOSE, A1C 189 mg/dL 07/10/2013 11:40 PM CDT [facility] Blood specimen (specimen) Venipuncture - Lab Collect / Unknown 07/10/2013 6:48 PM CDT 07/10/2013 10:06 PM CDT Cash Wiley MD CHEMISTRY ORDERABLES Fi nal Result Performing Organization Address [facility] Co de Phone Number [facility] CLIA # [id number] [address] [place] [phone] documented in this encounter Visit Diagnoses Diagnosis Sick Other unknown and unspecified cause of morbidity or mortality documented in this encounter Care Teams Financial Engineer Relationship Specialty Start Date End Date Non-Staff, Physician NO ADDRESS ON FILE PCP - General 06/27/20 documented as of this encounter
--- OUTSIDE RECORDS SUMMARY | 2025-05-01 11:48 | XMS_ITS | Encounter Summary ---
Author Organization [facility] Address [address] [place] [address] Care Team Providers Care Clerk Funeral Detail Name Role Phone Non-Staff, Physician Primary Care Provider Unava ilable Encounter Details Date Type Department Care Team (Latest Contact Info) Description 03/14/1999 Outpatient Historical [facility] Family Medicine- [place] [address] [place] [id number] Gerald Alvarado, DO NO ADDRESS ON FILE Other, multiple, and unspecified sites, insect bite, nonvenomous, without mention of infection(919.4) (Primary Dx); Need for prophylactic vaccination with tetanus-diphtheria (Td) Social History Tobacco Use Types Packs/Day Years Used Date Smoking Tobacco: Never Assessed Comments Unknown Sex and Gender Information Value Date Recorded Sex Assigned at Not on file 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 Gender Identity Not on file Sexual Orientation Not on file documented as of this encounter Plan of Treatment Not on file documented as of this encounter Visit Diagnoses Diagnosis Other, multiple, and unspecified sites, insect bite, nonvenomous, without mention of infection(919.4)- Primary Other, multiple, and unspecified sites, insect bite, nonvenomous, without mention of infection Need for prophylactic vaccination with tetanus-diphtheria (Td) documented in this encounter Care Teams Clerk Funeral Detail Relationship Specialty Start Date End Date Non-Staff, Physician NO ADDRESS ON FILE PCP - General 06/27/20 documented as of this encounter
--- OUTSIDE RECORDS SUMMARY | 2025-05-01 11:48 | XMS_ITS | Encounter Summary ---
Author Organization [facility] Address [address] [place] [address] Care Team Providers Care Data Operations Manager Name Role Phone Non-Staff, Physician Primary Care Provider Unava ilable Encounter Details Date Type Department Care Team (Late st Contact Info) Description 06/13/2018 Lab Requisition [facility] General Laboratory Services [place] [address] [place] [address] Willam Hartman MD NO ADDRESS ON FILE Social History Tobacco Use Types Packs/Day Years Used Date Smoking Tobacco: Former Smokeless Tobacco: Never Alcohol Use Standard Drinks/Week Comments No 0 (1 standard drink = 0.6 oz pur e alcohol) Comments No Sex and Gender Information Value Date Recorded Sex Assigned at Not on file 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:58 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 DIRECTOR Gender Identity Not on file Sexual Orientation Not on file Occupation Industry Job Start Date Job End Date Not on file Not on file Not on file Not on file documented as of this encounter Plan of Treatment Not on file documented as of this encounter Procedures Procedure Name Priority Date/Time Associated Diagnosis Comments BRAIN NATRIURETIC PEPTIDE, BNP OR PROBNP Routine 06/13/2018 8:40 PM CDT HEMOGLOBIN A1C Routine 06/13/2018 8:40 PM CDT COMPREHENSIVE METABOLIC PANEL Routine 06/13/2018 8:40 PM CDT documented in this encounter Results * (ABNORMAL) BRAIN NATRIURETIC PEPTIDE, BNP OR PROBNP (06/13/2018 8:40 PM CDT) PROBNP, N TERMINAL 219(H) 0 - 125 pg/mL 06/13/2018 10:42 PM CDT [facility] Blood Collection / Unknown 06/13/2018 8:40 PM CDT 06/13/2018 9:58 PM CDT us Willam Hartman MD CHEMISTRY ORDERABLES Final Result [facility] CLIA # [id number] [address] [place] [address] * (ABNORMAL) COMPREHENSIVE METABOLIC PANEL (06/13/2018 8:40 PM CDT) Pathologist [facility] SODIUM 141 136 - 145 mmol/L 06/13/2018 10:42 PM CDT [facility] POTASSIUM 3.9 3.5 - 5.1 mmol/L 06/13/2018 10:42 PM [facility] CHLORIDE 103 98 - 107 mmol/L 06/13/2018 10:42 PM T [facility] CO2 28 22 - 29 mmol/L 06/13/2018 10:42 PM [facility] CALCIUM 9.4 8.8 - 10.2 mg/dL 06/13/2018 10:42 PM [facility] BUN 20 8 - 23 mg/dL 06/13/2018 10:42 PM [facility] CREATININE 0.91 0.51 - 0.95 mg/dL 06/13/2018 10:42 PM [facility] GLUCOSE 191(H) 74 - 99 mg/dL 06/13/2018 10:42 PM [facility] TOTAL PROTEIN 7.1 6.6 - 8.7 g/dL 06/13/2018 10:42 PM [facility] ALBUMIN 4.3 3.5 - 5.2 g/dL 06/13/2018 10:42 PM [facility] BILIRUBIN TOTAL 0.2 0.0 - 1.2 mg/dL 06/13/2018 10:42 PM [facility] ALKALINE PHOSPHATASE 76 35 - 104 U/L 06/13/2018 10:42 PM [facility] AST 14 10 - 35 U/L 06/13/2018 10:42 PM [facility] ALT 17 10 - 35 U/L 06/13/2018 10:42 PM [facility] GFR >60 >=60 mL/min/1.7 3 sq meter 06/13/2018 10:42 PM [facility] Comment: eGFR has not been validated [...] GFR, >60 >=60 mL/min/1.7 3 sq meter 06/13/2018 10:42 PM [facility] ANION GAP 10(L) 12 - 20 mmol/L 06/13/2018 10:42 PM [facility] Blood Collection / Unknown 06/13/2018 8:40 PM CDT 06/13/2018 9:58 PM CDT us Willam Hartman MD CHEMISTRY ORDERABLES Final Result [facility] CLIA # [id number] [address] [place] [address] * (ABNORMAL) HEMOGLOBIN A1C (06/13/2018 8:40 PM CDT) HEMOGLOBIN A1C 6.4(H) 4.8 - 5.9 % 06/13/2018 10:45 PM CDT [facility] EST. AVG GLUCOSE, A1C 137 mg/dL 06/13/2018 10:45 PM CDT [facility] Blood Collection / Unknown 06/13/2018 8:40 PM CDT 06/13/2018 9:58 PM CDT Narrative [facility] - 06/13/2018 10:45 PM CDT HGB A1C INTERPRETATION NORMAL: <5.7% PRE-DIABETES: 5.7 - 6.4% DIABETES: 6.5% OR GREATER us Willam Hartman MD CHEMISTRY ORDERABLES Final Result [facility] CLIA # [id number] [address] [place] [address] [phone] documented in this encounter Visit Diagnoses Not on filedocumented in this encounter Care Teams Data Operations Manager Relationship Specialty Start Date End Date Non-Staff, Physician NO ADDRESS ON FILE PCP - General 06/27/20 documented as of this encounter
--- OUTSIDE RECORDS SUMMARY | 2025-05-01 11:48 | XMS_ITS | Encounter Summary ---
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
--- OUTSIDE RECORDS SUMMARY | 2025-05-01 11:48 | XMS_ITS | Encounter Summary ---
Author Organization [facility] Address [address] [place] [address] Care Team Providers Care Nurse Practical Name Role Phone Non-Staff, Physician Primary Care Provider Unava ilable Encounter Details Date Type Department Care Team (Late st Contact Info) Description 05/30/2018 Lab Requisition [facility] Laboratory Services [place] [address] [place] [address] Hailey Mckinnon, RETENTION MANAGER [address] [place] [address] Social History Tobacco Use Types Packs/Day Years Used Date Smoking Tobacco: Former Smokeless Tobacco: Never Alcohol Use Standard Drinks/Week Comments No 0 (1 standard drink = 0.6 oz pur e alcohol) Comments No Sex and Gender Information Value Date Recorded Sex Assigned at Not on file 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 Gender Identity Not on file Sexual Orientation Not on file Occupation Industry Job Start Date Job End Date Not on file Not on file Not on file Not on file documented as of this encounter Plan of Treatment Not on file documented as of this encounter Procedures Procedure Name Priority Date/Time Associated Diagnosis Comments BRAIN NATRIURETIC PEPTIDE, BNP OR PROBNP Routine 05/30/2018 10:10 PM CDT BASIC METABOLIC PANEL Routine 05/30/2018 10:10 PM CDT documented in this encounter Results * (ABNORMAL) BRAIN NATRIURETIC PEPTIDE, BNP OR PROBNP (05/30/2018 10:10 PM CDT) PROBNP, N TERMINAL 500(H) 0 - 125 pg/mL 05/31/2018 5:37 AM CDT [facility] Blood Collection / Unknown 05/30/2018 10:10 PM CDT 05/31/2018 4:25 AM CDT us Hailey DIOPP CHEMISTRY ORDERABLES Rekha john Result [facility] CLIA # [id number] [address] [place] [address] * (ABNORMAL) BASIC METABOLIC PANEL (05/30/2018 10:10 PM CDT) SODIUM 146(H) 136 - 145 mmol/L 05/31/2018 5:37 AM T [facility] POTASSIUM 3.5 3.5 - 5.1 mmol/L 05/31/2018 5:37 AM [facility] CHLORIDE 109(H) 98 - 107 mmol/L 05/31/2018 5:37 AM T [facility] CO2 23 22 - 29 mmol/L 05/31/2018 5:37 AM T [facility] CALCIUM 9.0 8.8 - 10.2 mg/dL 05/31/2018 5:37 AM [facility] BUN 14 8 - 23 mg/dL 05/31/2018 5:37 AM [facility] CREATININE 0.98(H) 0.51 - 0.95 mg/dL 05/31/2018 5:37 AM [facility] GLUCOSE 119(H) 74 - 99 mg/dL 05/31/2018 5:37 AM [facility] GFR 57(L) >=60 mL/min/1.7 3 sq meter 05/31/2018 5:37 AM CDT [facility] Comment: eGFR has not been validated [...] GFR, >60 >=60 mL/min/1.7 3 sq meter 05/31/2018 5:37 AM CDT [facility] ANION GAP 14 12 - 20 mmol/L 05/31/2018 5:37 AM T [facility] Blood Collection / Unknown 05/30/2018 10:10 PM CDT 05/31/2018 4:25 AM CDT us Hailey Mckinnon RETENTION MANAGER CHEMISTRY ORDERABLES Rekha john Result [facility] CLIA # [id number] [address] [place] [address] documented in this encounter Visit Diagnoses Not on filedocumented in this encounter Care Teams Nurse Practical Relationship Specialty Start Date End Date Non-Staff, Physician NO ADDRESS ON FILE PCP - General 06/27/20 documented as of this encounter
--- OUTSIDE RECORDS SUMMARY | 2025-05-01 11:48 | XMS_ITS | Encounter Summary ---
Author Organization [facility] Address [address] [place] [address] Care Team Providers Care Retail Business Analyst Name Role Phone Non-Staff, Physician Primary Care Provider Unava ilable Encounter Details Date Type Department Care Team (Late st Contact Info) Description 12/27/2017 Lab Requisition [facility] General Laboratory Services [place] [address] [place] [address] Gerald Alvarado, NO ADDRESS ON FILE Social History Tobacco Use Types Packs/Day Years Used Date Smoking Tobacco: Former Smokeless Tobacco: Never Alcohol Use Standard Drinks/Week Comments No 0 (1 standard drink = 0.6 oz pur e alcohol) Comments No Sex and Gender Information Value Date Recorded Sex Assigned at Not on file 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:58 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 ORDER 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 Gender Identity Not on file Sexual Orientation Not on file Occupation Industry Job Start Date Job End Date Not on file Not on file Not on file Not on file documented as of this encounter Plan of Treatment Not on file documented as of this encounter Procedures Procedure Name Priority Date/Time Associated Diagnosis Comments MARIUSZ TITER Routine 12/27/2017 8:13 PM CDT SEDIMENTATION RATE Routine 12/27/2017 8: 13 PM CDT RHEUMATOID FACTOR Routine 12/27/2017 8:1 3 PM CDT C-REACTIVE PROTEIN Routine 12/27/2017 8: 13 PM CDT MARIUSZ SCREEN W/REFLEX Routine 12/27/2017 8 :13 PM CDT HEMOGLOBIN A1C Routine 12/27/2017 8:13 PM CDT documented in this encounter Results * MARIUSZ TITER (12/27/2017 8:13 PM CDT) [facility] MARIUSZ TITER 1:160 Titer 12/31/2017 10:11 AM CDT [facility] MARIUSZ PATTERN Homogeneous 12/31/2017 10:11 AM CDT [facility] Blood Collection / Unknown 12/27/2017 8:13 PM CDT 12/27/2017 8:32 PM CDT us Gerald Alvarado DO CHEMISTRY ORDERABLES Final Resu lt [facility] CLIA# [id number] [address] [place] [address] * (ABNORMAL) C-REACTIVE PROTEIN (12/27/2017 8:13 PM CDT) [facility] CRP 13.3(H) <5.0 mg/L 12/28/2017 12:57 AM CDT [facility] Blood Collection / Unknown 12/27/2017 8:13 PM CDT 12/27/2017 8:32 PM CDT us Gerald Alvarado DO CHEMISTRY ORDERABLES Final Resu lt [facility] CLIA # [id number] [address] [place] [id number] * (ABNORMAL) MARIUSZ SCREEN W/REFLEX (12/27/2017 8:13 PM CDT) [facility] MARIUSZ SCREEN Positive(A ) Negative 12/31/2017 10:10 AM CDT [facility] Blood Collection / Unknown 12/27/2017 8:13 PM CDT 12/27/2017 8:32 PM CDT us Gerald Alvarado DO CHEMISTRY ORDERABLES Final Resu lt Performing Organization Address City/[facility]/ZIP Co de Phone Number [facility] CLIA# [id number] [address] [place], [place] [address] * SEDIMENTATION RATE (12/27/2017 8:13 PM CDT) [facility] ESR (SEDIMENTATION RATE) 25 0 - 30 mm/Hr 12/28/2017 12:57 AM CDT [facility] Blood Collection / Unknown 12/27/2017 8:13 PM CDT 12/27/2017 8:32 PM CDT us Gerald Alvarado DO HEMATOLOGY ORDERABLES Final Res ult Performing Organization Address City/[facility]/ZIP Co de Phone Number [facility] CLIA # [id number] [address] [place] [address] * RHEUMATOID FACTOR (12/27/2017 8:13 PM CDT) [facility] RHEUMATOID FACTOR 11 <14 IU/mL 12/29/2017 2:20 AM CDT [facility] Blood Collection / Unknown 12/27/2017 8:13 PM CDT 12/27/2017 8:32 PM CDT us Gerald Alvarado DO CHEMISTRY ORDERABLES Final Resu lt Performing Organization Address City/[facility]/ZIP Co de Phone Number [facility] CLIA# [id number] [address] [place] [address] [phone] * (ABNORMAL) HEMOGLOBIN A1C (12/27/2017 8:13 PM CDT) HEMOGLOBIN A1C 8.4(H) 4.8 - 5.9 % 12/28/2017 1:05 AM CDT [facility] EST. AVG GLUCOSE, A1C 194 mg/dL 12/28/2017 1:05 AM CDT [facility] Blood Collection / Unknown 12/27/2017 8:13 PM CDT 12/27/2017 8:32 PM CDT us Gerald Alvarado DO CHEMISTRY ORDERABLES Final Resu lt [facility] CLIA # [id number] [address] [place] [address] documented in this encounter Visit Diagnoses Not on filedocumented in this encounter Care Teams Retail Business Analyst Relationship Specialty Start Date End Date Non-Staff, Physician NO ADDRESS ON FILE PCP - General 06/27/20 documented as of this encounter
--- OUTSIDE RECORDS SUMMARY | 2025-05-01 11:48 | XMS_ITS | Encounter Summary ---
Author Organization [facility] Address [address] [place] [address] Care Team Providers Care Risk Management Specialist Name Role Phone Non-Staff, Physician Primary Care Provider Unava ilable Encounter Details Date Type Department Care Team (Late st Contact Info) Description 03/07/2018 Ancillary Orders [facility] Admitting [address] [place] [address] Gerald Alvarado DO NO ADDRESS ON FILE Chest pain on breathing; Shortness of breath Social History Tobacco Use Types Packs/Day Years Used Date Smoking Tobacco: Former Smokeless Tobacco: Never Alcohol Use Standard Drinks/Week Comments No 0 (1 standard drink = 0.6 oz pur e alcohol) Comments No Sex and Gender Information Value Date Recorded Sex Assigned at Not on file 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 Exam: XR CHEST PA AND LATERAL 2 VW Date/Time of Exam: 03/07/2018 6:38 PM Reason For Exam: Chest pain on breathing,Shortness of breath. Comparison: July 10, 2013. FINDINGS: Cardiomediastinal silhouette stable normal. Lungs clear. Thoracic spondylosis and low-grade scoliosis. Postcholecystectomy. IMPRESSION: Nothing acute. Narrative Procedure Note Thong Cuello, DO - 03/08/2018 IMPRESSION: Please see below. Exam: XR CHEST PA AND LATERAL 2 VW Date/Time of Exam: 03/07/2018 6:38 PM Reason For Exam: Chest pain on breathing,Shortness of breath. Comparison: July 10, 2013. FINDINGS: Cardiomediastinal silhouette stable normal. Lungs clear. Thoracic spondylosis and low-grade scoliosis. Postcholecystectomy. IMPRESSION: Nothing acute. Gerald Alvarado DO DIAGNOSTIC IMAGING ORDERABLES F inal Result documented in this encounter Visit Diagnoses Diagnosis Chest pain on breathing Painful respiration Shortness of breath Chest pain on breathing Painful respiration Shortness of breath documented in this encounter Care Teams Risk Management Specialist Relationship Specialty Start Date End Date Non-Staff, Physician NO ADDRESS ON FILE PCP - General 06/27/20 documented as of this encounter
--- OUTSIDE RECORDS SUMMARY | 2025-05-01 11:48 | XMS_ITS | Encounter Summary ---
Author Organization [facility] Address [address] [place] [address] Care Team Providers Care Design Editor Name Role Phone Non-Staff, Physician Primary Care Provider Unava ilable Encounter Details Date Type Department Care Team (Late st Contact Info) Description 01/22/2014 Ancillary Orders [facility] General Laboratory Services [place] [address] [place] [address] Sick Social History Tobacco Use Types Packs/Day Years Used Date Smoking Tobacco: Former Alcohol Use Standard Drinks/Week Comments No 0 (1 standard drink = 0.6 oz pur e alcohol) Comments No Sex and Gender Information Value Date Recorded Sex Assigned at Not on file 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:58 AM 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 Gender Identity Not on file Sexual Orientation Not on file Occupation Industry Job Start Date Job End Date Not on file Not on file Not on file Not on file documented as of this encounter Plan of Treatment Not on file documented as of this encounter Procedures Procedure Name Priority Date/Time Associated Diagnosis Comments HEMOGLOBIN A1C Routine 01/22/2014 7:54 PM CDT Sick [ICD-9-CM] documented in this encounter Results * (ABNORMAL) HEMOGLOBIN A1C (01/22/2014 7:54 PM CDT) HEMOGLOBIN A1C 7.9(H) 4.5 - 6.2 % 01/22/2014 11:08 PM CDT [facility] EST. AVG GLUCOSE, A1C 180 mg/dL 01/22/2014 11:08 PM CDT [facility] Blood specimen (specimen) Collection / Unknown 01/22/2014 7:54 PM CDT 01/22/2014 9:56 PM CDT Michaelle Rodrigues DO CHEMISTRY ORDERABLES Fi nal Result [facility] CLIA # [id number] [address] [place] [address] documented in this encounter Visit Diagnoses Diagnosis Sick Other unknown and unspecified cause of morbidity or mortality documented in this encounter Care Teams Design Editor Relationship Specialty Start Date End Date Non-Staff, Physician NO ADDRESS ON FILE PCP - General 06/27/20 documented as of this encounter
--- OUTSIDE RECORDS SUMMARY | 2025-05-01 11:48 | XMS_ITS | Encounter Summary ---
Author Organization [facility] Address [address] [place] [address] Care Team Providers Care Senior Software Engineer Analytics Name Role Phone Non-Staff, Physician Primary Care Provider Unava ilable Encounter Details Date Type Department Care Team (Late st Contact Info) Description 05/10/2017 Lab Requisition [facility] General Laboratory Services [place] [address] [place] [address] Gerald Alvarado, NO ADDRESS ON FILE Social History Tobacco Use Types Packs/Day Years Used Date Smoking Tobacco: Former Smokeless Tobacco: Never Alcohol Use Standard Drinks/Week Comments No 0 (1 standard drink = 0.6 oz pur e alcohol) Comments No Sex and Gender Information Value Date Recorded Sex Assigned at Not on file 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:58 AM INFORMATION SECURITY ANALYST Gender Identity Not on file Sexual Orientation Not on file Occupation Industry Job Start Date Job End Date Not on file Not on file Not on file Not on file documented as of this encounter Plan of Treatment Not on file documented as of this encounter Procedures Procedure Name Priority Date/Time Associated Diagnosis Comments D-DIMER Routine 05/10/2017 9:12 PM CDT BRAIN NATRIURETIC PEPTIDE, BNP OR PROBNP Routine 05/10/2017 9:12 PM CDT RENAL FUNCTION PANEL Routine 05/10/2017 9:12 PM CDT documented in this encounter Results * (ABNORMAL) RENAL FUNCTION PANEL (05/10/2017 9:12 PM CDT) SODIUM 147(H) 136 - 145 mmol/L 05/11/2017 1:37 AM [facility] POTASSIUM 2.9(L) 3.5 - 5.1 mmol/L 05/11/2017 1:37 AM [facility] CHLORIDE 107 98 - 107 mmol/L 05/11/2017 1:37 AM [facility] CO2 24 22 - 29 mmol/L 05/11/2017 1:37 AM [facility] CALCIUM 9.2 8.8 - 10.2 mg/dL 05/11/2017 1:37 AM [facility] BUN 9 8 - 23 mg/dL 05/11/2017 1:37 AM [facility] CREATININE 0.77 0.51 - 0.95 mg/dL 05/11/2017 1:37 AM [facility] GLUCOSE 113(H) 74 - 106 mg/dL 05/11/2017 1:37 AM [facility] ALBUMIN 3.8 3.5 - 5.2 g/dL 05/11/2017 1:37 AM [facility] PHOSPHORUS 3.2 2.5 - 4.5 mg/dL 05/11/2017 1:37 AM [facility] GFR >60 >=60 mL/min/1.7 3 sq meter 05/11/2017 1:37 AM [facility] Comment: eGFR has not been validated for [...] GFR, >60 >=60 mL/min/1.7 3 sq meter 05/11/2017 1:37 AM CDT [facility] ANION GAP 16 12 - 20 mmol/L 05/11/2017 1:37 AM CDT [facility] Blood 05/10/2017 9:12 PM CDT 05/10/2017 11:25 PM CDT us Gerald Alvarado DO CHEMISTRY ORDERABLES Final Resu lt Performing Organization Address City/[facility]/ZIP Co de Phone Number [facility] CLIA # [id number] [address] [place] [address] * (ABNORMAL) D-DIMER (05/10/2017 9:12 PM CDT) D-DIMER QUANT 0.54(H) <0.50 ug/mL FEU 05/11/2017 1:37 AM CDT [facility] Blood 05/10/2017 9:12 PM CDT 05/10/2017 11:25 PM CDT us Gerald Alvarado DO HEMATOLOGY ORDERABLES Final Res ult Performing Organization Address [facility] Co de Phone Number [facility] CLIA # [id number] [address] [place] [phone] * (ABNORMAL) BRAIN NATRIURETIC PEPTIDE, BNP OR PROBNP (05/10/2017 9:12 PM CDT) PROBNP, N TERMINAL 619(H) 0 - 125 pg/mL 05/11/2017 1:37 AM CDT [facility] Blood 05/10/2017 9:12 PM CDT 05/10/2017 11:25 PM CDT us Gerald Alvarado DO CHEMISTRY ORDERABLES Final Resu lt Performing Organization Address [facility]/ZIP Co de Phone Number [facility] CLIA # [id number] [address] [place] [address] documented in this encounter Visit Diagnoses Not on filedocumented in this encounter Care Teams Senior Software Engineer Analytics Relationship Specialty Start Date End Date Non-Staff, Physician NO ADDRESS ON FILE PCP - General 06/27/20 documented as of this encounter
--- OUTSIDE RECORDS SUMMARY | 2025-05-01 11:48 | XMS_ITS | Encounter Summary ---
Author Organization [facility] Address [address] [place] [address] Care Team Providers Care Agriculture Mechanic Name Role Phone Non-Staff, Physician Primary Care Provider Unava ilable Encounter Details Date Type Department Care Team (Latest Contact Info) Description 07/07/[address] [facility] Family Medicine [place] [address] [facility] [address] [place] [phone] Bony Le MD [address] [facility] [address] [place] [address] Sprain rotator cuff (Primary Dx) Social History Tobacco Use Types Packs/Day Years Used Date Smoking Tobacco: Never Assessed Comments Unknown Sex and Gender Information Value Date Recorded Sex Assigned at Not on file 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:58 AM ANESTHETIST Gender Identity Not on file Sexual Orientation Not on file documented as of this encounter Plan of Treatment Not on file documented as of this encounter Visit Diagnoses Diagnosis Sprain rotator cuff- Primary Rotator cuff (capsule) sprain documented in this encounter Care Teams Agriculture Mechanic Relationship Specialty Start Date End Date Non-Staff, Physician NO ADDRESS ON FILE PCP - General 06/27/20 documented as of this encounter
--- OUTSIDE RECORDS SUMMARY | 2025-05-01 11:48 | XMS_ITS | Encounter Summary ---
Author Organization [facility] Address [address] [place] [address] Care Team Providers Care Frog Catcher Name Role Phone Non-Staff, Physician Primary Care Provider Unava ilable Encounter Details Date Type Department Care Team (Latest Contact Info) Description 06/20/1999 Outpatient Historical [facility] Medicine [place] [address] [facility] [address] [place] [address] Gerald Alvarado DO NO ADDRESS ON FILE Goiter, unspecified (Primary Dx); Esophageal reflux Social History Tobacco Use Types Packs/Day Years Used Date Smoking Tobacco: Never Assessed Comments Unknown Sex and Gender Information Value Date Recorded Sex Assigned at Not on file 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:58 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
--- OUTSIDE RECORDS SUMMARY | 2025-05-01 11:48 | XMS_ITS | Encounter Summary ---
Author Organization [facility] Address [address] [place] [address] Care Team Providers Care Primary School Teacher Name Role Phone Non-Staff, Physician Primary Care Provider Unava ilable Encounter Details Date Type Department Care Team (Latest Contact Info) Description 11/12/1999 Outpatient Historical [facility] General and Trauma Surgery-[place] [address] [address] [place] [address] Lipoma of other skin and subcutaneous tissue (Primary Dx) Social History Tobacco Use Types Packs/Day Years Used Date Smoking Tobacco: Never Assessed Comments Unknown Sex and Gender Information Value Date Recorded Sex Assigned at Not on file 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:58 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
--- OUTSIDE RECORDS SUMMARY | 2025-05-01 11:48 | XMS_ITS | Encounter Summary ---
Author Organization [facility] Address [address] [place] [address] Care Team Providers Care Production Repairer Name Role Phone Non-Staff, Physician Primary Care Provider Unava ilable Encounter Details Date Type Department Care Team (Late st Contact Info) Description 05/14/2014 Ancillary Orders [facility] General Laboratory Services [place] [address] [place] [address] Sick Social History Tobacco Use Types Packs/Day Years Used Date Smoking Tobacco: Former Alcohol Use Standard Drinks/Week Comments No 0 (1 standard drink = 0.6 oz pur e alcohol) Comments No Sex and Gender Information Value Date Recorded Sex Assigned at Not on file 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:58 AM CISTERN ROOM WORKING SUPERVISOR Gender Identity Not on file Sexual Orientation Not on file Occupation Industry Job Start Date Job End Date Not on file Not on file Not on file Not on file documented as of this encounter Plan of Treatment Not on file documented as of this encounter Procedures Procedure Name Priority Date/Time Associated Diagnosis Comments HEMOGLOBIN A1C Routine 05/14/2014 10:00 PM CDT Sick [ICD-9-CM] COMPREHENSIVE METABOLIC PANEL Routine 05/14/2014 10:00 PM CDT Sick [ICD-9-CM] documented in this encounter Results * (ABNORMAL) HEMOGLOBIN A1C (05/14/2014 10:00 PM CDT) HEMOGLOBIN A1C 9.6(H) 4.5 - 6.2 % 05/15/2014 12:14 AM CDT [facility] [employer] EST. AVG GLUCOSE, A1C 229 mg/dL 05/15/2014 12:14 AM CDT [facility] [employer] Blood Collection / Unknown 05/14/2014 10:00 PM CDT 05/14/2014 10:00 PM CDT Yovani BUSTAMANTE CHEMISTRY ORDERABLES Final R esult [facility] [employer] [facility] CLIA # [id number] [address] [place] [id number] * (ABNORMAL) COMPREHENSIVE METABOLIC PANEL (05/14/2014 10:00 PM CDT) SODIUM 136 136 - 145 mmol/L 05/14/2014 10:54 PM CDT [facility] POTASSIUM 4.2 3.5 - 5.1 mmol/L 05/14/2014 10:54 PM CDT [facility] CHLORIDE 102 98 - 107 mmol/L 05/14/2014 10:54 PM CDT [facility] CO2 28 21 - 32 mmol/L 05/14/2014 10:54 PM CDT [facility] CALCIUM 9.4 8.5 - 10.1 mg/dL 05/14/2014 10:54 PM CDT [facility] BUN 16 7 - 18 mg/dL 05/14/2014 10:54 PM CDT [facility] CREATININE 1.20 0.60 - 1.30 mg/dL 05/14/2014 10:54 PM [facility]T [facility] GLUCOSE 267(H) 74 - 106 mg/dL 05/14/2014 10:54 PM CDT [facility] TOTAL PROTEIN 7.8 6.4 - 8.2 g/dL 05/14/2014 10:54 PM CDT [facility] ALBUMIN 3.8 3.4 - 5.0 g/dL 05/14/2014 10:54 PM CDT [facility] BILIRUBIN TOTAL 0.3 0.2 - 1.0 mg/dL 05/14/2014 10:54 PM T [facility] ALKALINE PHOSPHATASE 136 50 - 136 U/L 05/14/2014 10:54 PM CDT [facility] AST <4(L) 15 - 37 U/L 05/14/2014 10:54 PM T [facility] ALT 30 30 - 65 U/L 05/14/2014 10:54 PM T [facility] GFR 46(L) >=60 mL/min/1.7 3 sq meter 05/14/2014 10:54 PM T [facility] Comment: eGFR has not been [...] GFR, 56(L) >=60 mL/min/1.7 3 sq meter 05/14/2014 10:54 PM CDT [facility] ANION GAP 6(L) 12 - 20 05/14/2014 10:54 PM T [facility] Blood Collection / Unknown 05/14/2014 10:00 PM CDT 05/14/2014 10:00 PM CDT us Yovani BUSTAMANTE CHEMISTRY ORDERABLES Final R esult [facility] [employer] [facility] CLIA # [id number] [address] [place] [id number] documented in this encounter Visit Diagnoses Diagnosis Sick Other unknown and unspecified cause of morbidity or mortality documented in this encounter Care Teams Production Repairer Relationship Specialty Start Date End Date Non-Staff, Physician NO ADDRESS ON FILE PCP - General 06/27/20 documented as of this encounter
--- OUTSIDE RECORDS SUMMARY | 2025-05-01 11:48 | XMS_ITS | Encounter Summary ---
Author Organization [facility] Address [address] [place] [address] Care Team Providers Care Health Club Attendant Name Role Phone Non-Staff, Physician Primary Care Provider Unava ilable Encounter Details Date Type Department Care Team (Latest Contact Info) Description 07/30/1999 Outpatient Historical [facility] [place] [address] [place] [address] Andressa Mooney MD [address] [place] [address] Goiter, unspecified (Primary Dx) Social History Tobacco Use Types Packs/Day Years Used Date Smoking Tobacco: Never Assessed Comments Unknown Sex and Gender Information Value Date Recorded Sex Assigned at Not on file 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:58 AM RECORDS TECH Gender Identity Not on file Sexual Orientation Not on file documented as of this encounter Plan of Treatment Not on file documented as of this encounter Visit Diagnoses Diagnosis Goiter, unspecified- Primary documented in this encounter Care Teams Health Club Attendant Relationship Specialty Start Date End Date Non-Staff, Physician NO ADDRESS ON FILE PCP - General 06/27/20 documented as of this encounter
--- OUTSIDE RECORDS SUMMARY | 2025-05-01 11:48 | XMS_ITS | Encounter Summary ---
Author Organization [facility] Address [address] [place] [address] Care Team Providers Care Country Manager Name Role Phone Non-Staff, Physician Primary Care Provider Unava ilable Encounter Details Date Type Department Care Team (Late st Contact Info) Description 07/11/2018 Lab Requisition [facility] General Laboratory Services [place] [address] [place] [address] Gerald Alvarado, NO ADDRESS ON FILE Social History Tobacco Use Types Packs/Day Years Used Date Smoking Tobacco: Former Smokeless Tobacco: Never Alcohol Use Standard Drinks/Week Comments No 0 (1 standard drink = 0.6 oz pur e alcohol) Comments No Sex and Gender Information Value Date Recorded Sex Assigned at Not on file 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:58 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 TILE 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 Gender Identity Not on file Sexual Orientation Not on file Occupation Industry Job Start Date Job End Date Not on file Not on file Not on file Not on file documented as of this encounter Plan of Treatment Not on file documented as of this encounter Procedures Procedure Name Priority Date/Time Associated Diagnosis Comments LIPID PANEL Routine 07/11/2018 8:00 PM CDT documented in this encounter Results * (ABNORMAL) LIPID PANEL (07/11/2018 8:00 PM CDT) CHOLESTEROL 189 <200 mg/dL 07/11/2018 11:02 PM T [facility] TRIGLYCERIDE 108 <150 mg/dL 07/11/2018 11:02 PM T [facility] HDL 53 40 - 59 mg/dL 07/11/2018 11:02 PM [facility] LDL CALCULATED 114(H) <100 mg/dL 07/11/2018 11:02 PM [facility] NON-HDL CHOLESTEROL 136(H) <130 mg/dL 07/11/2018 11:02 PM [facility] Blood Collection / Unknown 07/11/2018 8:00 PM CDT 07/11/2018 10:09 PM CDT Narrative [facility] - 07/11/2018 11:02 PM CDT TOTAL CHOLESTEROL mg/dL Desirable <200 Borderline [...] Alvarado DO CHEMISTRY ORDERABLES Final Resu lt [facility] CLIA # [id number] [address] [place] [phone] documented in this encounter Visit Diagnoses Not on filedocumented in this encounter Care Teams Country Manager Relationship Specialty Start Date End Date Non-Staff, Physician NO ADDRESS ON FILE PCP - General 06/27/20 documented as of this encounter
--- OUTSIDE RECORDS SUMMARY | 2025-05-01 11:48 | XMS_ITS | Encounter Summary ---
Author Organization [facility] Address [address] [place] [address] Care Team Providers Care Stripper Latex Name Role Phone Non-Staff, Physician Primary Care Provider Unava ilable Encounter Details Date Type Department Care Team (Latest Contact Info) Description 02/19/2006 Outpatient Historical [facility] Breast [place] [address] [facility] [address] [place] [address] Amilcar Johnson MD NO ADDRESS ON FILE Other Screening Mammogram (Primary Dx) Social History Tobacco Use Types Packs/Day Years Used Date Smoking Tobacco: Never Assessed Comments Unknown Sex and Gender Information Value Date Recorded Sex Assigned at Not on file 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:58 AM PHYSICIAN PRACTICE ADMINISTRATOR Gender Identity Not on file Sexual Orientation Not on file documented as of this encounter Plan of Treatment Not on file documented as of this encounter Visit Diagnoses Diagnosis Other screening mammogram- Primary documented in this encounter Care Teams Stripper Latex Relationship Specialty Start Date End Date Non-Staff, Physician NO ADDRESS ON FILE PCP - General 06/27/20 documented as of this encounter
--- OUTSIDE RECORDS SUMMARY | 2025-05-01 11:48 | XMS_ITS | Encounter Summary ---
Author Organization [facility] Address [address] [place] [address] Care Team Providers Care Double End Trimmer Name Role Phone Non-Staff, Physician Primary Care Provider Unava ilable Encounter Details Date Type Department Care Team (Latest Contact Info) Description 08/13/1999 Outpatient Historical [facility] [place] [address] [place] [address] Andressa Mooney MD [address] [place] [address] Goiter, unspecified (Primary Dx); Chronic lymphocytic thyroiditis Social History Tobacco Use Types Packs/Day Years Used Date Smoking Tobacco: Never Assessed Comments Unknown Sex and Gender Information Value Date Recorded Sex Assigned at Not on file 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
--- OUTSIDE RECORDS SUMMARY | 2025-05-01 11:49 | XMS_ITS | Encounter Summary ---
Author Organization [facility] Address [address] [place] [address] Care Team Providers Care Lead Atg Developer Name Role Phone Non-Staff, Physician Primary Care Provider Unava ilable Encounter Details Date Type Department Care Team (Late st Contact Info) Description 06/19/2019 Ancillary Orders [facility] Orthopedics - [facility] [address] [place] [id number] Roberta Alvarado PA-C [address] [place] [id number] S/P knee surgery Social History Tobacco Use Types Packs/Day Years Used Date Smoking Tobacco: Never Smokeless Tobacco: Never Alcohol Use Standard Drinks/Week Comments No 0 (1 standard drink = 0.6 oz pur e alcohol) Comments No Sex and Gender Information Value Date Recorded Sex Assigned at Not on file 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 There is what looks like an Attune CR total knee arthroplasty which is well fixed and well aligned without any evidence of obvious failure or lucency. The overall bony alignment is maintained. us Roberta Alvarado PA-C DIAGNOSTIC IMAGING ORD ERABLES Final Result documented in this encounter Visit Diagnoses Diagnosis S/P knee surgery Other postprocedural status S/P knee surgery Other postprocedural status documented in this encounter Additional Health Concerns Assessment Noted Time PHQ-9 Depression Total Score: 1 04/28/20 19 10:00 AM CDT documented as of this encounter Care Teams Lead Atg Developer Relationship Specialty Start Date End Date Non-Staff, Physician NO ADDRESS ON FILE PCP - General 06/27/20 documented as of this encounter
--- OUTSIDE RECORDS SUMMARY | 2025-05-01 11:49 | XMS_ITS | Clinical Summary ---
Author Organization [facility] Address [address] [place] [address] Care Team Providers Care Motor Overhauler Name Role Phone Non-Staff, Physician Primary Care Provider Unava ilable Allergies Active Allergy Reactions Criticality Noted Date Comments Latex, Natural Rubber Swelling Low 07/08/2010 Metformin Nausea and Vomiting Low 04/24/2017 Medications Blood-Glucose Meter (BLOOD GLUCOSE MONITORING) Kit Monitor glucose BID. 1 Kit 9 Active diclofenac sodium (VOLTAREN) 1 % gelIndications:S/P knee surgery APPLY 2 GRAMS EXTERNALLY TO THE AFFECTED AREA FOUR TIMES DAILY 100 Gram 9 Active Insulin [place], Disposable, (BD Ultra-Fine Short Pen Needle) 31 gauge x 5/16 Needle Use with injectable insulin pen 100 Each 3 0 Active pantoprazole (Protonix) 40 mg Tablet, Delayed Release (E.C.) Take 1 Tablet (40 mg) by mouth daily. 90 Tablet 3 0 Active lovastatin (MEVACOR) 20 mg tablet TAKE 1 TABLET(20 MG) BY MOUTH DAILY 90 Tablet 0 Active fluticasone propionate (FLONASE) 50 mcg/spray [place], Suspension nasal inhalerIndications :Acute non-recurrent pansinusitis SHAKE LIQUID AND USE 2 SPRAYS IN EACH NOSTRIL DAILY 48 Gram 5 0 Active naphazoline-phenir amine (VISINE-A) 0.025-0.3 % solutionIndication s:Acute conjunctivitis, unspecified acute conjunctivitis type, unspecified laterality Administer 1 Drop in both eyes 3 times daily as needed for Allergies, Rash or Redness or Itching. 15 mL 0 Active cetirizine (ZyrTEC) 10 mg tabletIndications: Postnasal drip Take 1 Tablet (10 mg) by mouth daily. At bedtime 30 Tablet 2 0 Active olopatadine (PATADAY) 0.2 % solution Administer 1 Drop in both eyes daily. 2.5 mL 0 Active glipiZIDE (GLUCOTROL) 10 mg tabletIndications: Type 2 diabetes mellitus with stage 3 chronic kidney disease, without long-term current use of insulin ([facility]) TAKE 1 TABLET(10 MG) BY MOUTH TWICE DAILY WITH MEALS 180 Tablet 0 Active furosemide (LASIX) 20 mg tabletIndications: Essential hypertension TAKE 1 TABLET(20 MG) BY MOUTH DAILY 90 Tablet 0 Active lisinopriL (PRINIVIL) 40 mg tabletIndications: Type 2 diabetes mellitus with stage 3 chronic kidney disease, without long-term current use of insulin ([facility]),Essentia l hypertension Take 1 Tablet (40 mg) by mouth daily. 90 Tablet 1 0 Active blood sugar diagnostic (OneTouch Ultra Blue Test Strip) Strip USE TWICE DAILY DIRECTED 200 Strip 3 0 Active JANUVIA 100 mg Tablet TAKE 1 TABLET(100 MG) BY MOUTH DAILY WITH BREAKFAST 90 Tablet 0 Active tiZANidine (ZANAFLEX) 2 mg TabletIndications: Headache, occipital,Osteoart hritis of spine with radiculopathy, cervical region TAKE 1 TABLET(2 MG) BY MOUTH TWICE DAILY NEEDED FOR PAIN 180 Tablet 0 Active LEVOTHYROXINE 50 mcg tablet TAKE 1 TABLET(50 MCG) BY MOUTH DAILY 90 Tablet 1 0 Active insulin degludec (Tresiba FlexTouch U-200) 200 unit/mL pen syringeIndications :Type 2 diabetes mellitus with hyperglycemia, with long-term current use of insulin ([facility]) INJECT 15 UNITS UNDER THE SKIN DAILY AT BEDTIME. TO BE TITRATED BY 5 UNITS WEEKLY TO A MAXIMUM OF 40 UNITS. 9 mL 0 Active ergocalciferol (VITAMIN D2) 50,000 unit capsule Take 50,000 Units by mouth. Active OneTouch Delica Plus Lancet 30 gauge USE TWICE DAILY DIRECTED 100 Each 2 0 Active HYDROcodone-acetam inophen (NORCO) 5-325 mg tablet TK 1 T PO Q 6 H PRN 0 Active valACYclovir (VALTREX) 1 gram tablet TK 1 PO D FOR 5 DAYS AT FIRST ONSET OF SYMPTOMS THEN PATIENT MAY TAKE DAILY PRN 0 Active hydroCHLOROthiazid e 25 mg tablet TAKE 1 TABLET BY MOUTH EVERY OTHER DAY 15 Tablet 0 Active nystatin (Nystop) 100,000 unit/gram powderIndications: Candidal skin infection APPLY A THIN LAYER TO ABDOMINAL FOLD TWICE DAILY DIRECTED FOR 7 DAYS 60 Gram 1 1 Active Active Problems Problem Noted Date Diagnosed Date Severe obesity (BMI 35.0-39.9) with comorbidity 08/14/2019 Seasonal allergic rhinitis 08/14/2019 Thyromegaly 08/14/2019 Osteoarthritis of spine with radiculopathy, cerv ical region 07/14/2019 Generalized osteoarthritis of multiple sites Preoperative general physical examination 2018 Primary osteoarthritis of left knee 03/10/2019 Essential hypertension 03/10/2019 Dyslipidemia 03/10/2019 Obesity (BMI 30.0-34.9) 03/10/2019 Anemia 03/10/2019 Chronic kidney disease, stage 3 (moderate) 03/10 Ganglion cyst 03/26/2011 Personal history of colonic polyps 11/28/2010 Family history of polyps in the colon 11/07/2010 GERD (gastroesophageal reflux disease) 1 Type 2 diabetes mellitus wit h stage 3 chronic kidney disease, without long-term current use of insulin 10/10/2010 Immunizations Immunization Administration Dates Next Due (PNEUMOVAX [...] 1 1/2 mat Elpidio Unknown Brother 2 1/2 mat Jonathan Other Brother 3 1/2 pat Jignesh homicide victi m No Known Problems Brother 4 1/2 pat Carlos Respiratory Disease Brother 5 1/2 pat James smoker Cancer Father Tom Dyer Smotherman Stroke Maternal Grandfather Arthritis-osteo Mother Alainaollie Costa Cancer Mother Alaina Erlinda Costa Diabetes Mother Alaina M Igor Heart Disease Mother Alaina M Igor Respiratory Disease Mother Alainaollie Costa never sm oked Cancer Other FATHER LYMPHOMA, [...] 6 1/2 mat Liz Alive Sister 7 10/05 pat Bev Alive Sister 8 10/05 pat Priscilla Sister 9 10/05 pat Dana Alive Sister 10 Irma Chaudhrys Sister 11 Carie Sánchezy Sister 12 Bev Kun Son 1 KATHRYN (RED) Alive Son 2 URBAN Alive Son 3 GORDON Alive Social History Tobacco Use Types Packs/Day Years Used Date Smoking Tobacco: Former Cigarettes Smokeless Tobacco: Never Tobacco Cessation:Counseling Given: Yes Comments:i pack would last for several months at a time Alcohol Use Standard Drinks/Week Comments No 0 (1 standard drink = 0.6 oz pur e alcohol) Comments No Sex and Gender Information Value Date Recorded Sex Assigned at Not on file 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 Gender Identity Not on file Sexual Orientation Not on file Occupation Industry Job Start Date Job End Date Not on file Not on file Not on file Not on file Last Filed Vital Signs Vital Sign Reading Time Taken Comments Blood Pressure 132/79 03/31/2021 9:53 AM CDT Pulse 76 03/31/2021 9:53 AM CDT Temperature 36.1 C (96.9 F) 05/03/2020 10:37 AM CDT Respiratory Rate 20 05/03/2020 10:37 AM CDT Oxygen Saturation 97% 05/03/2020 10:37 AM CDT Inhaled Oxygen Concentration - - Weight 93.5 kg (206 lb 3.2 oz) 03/31/2021 9:53 A M CDT Height 167.6 cm (5' 6 ) 03/31/2021 9:53 AM CDT Body Mass Index 33.28 03/31/2021 9:53 AM CDT Plan of Treatment Health Maintenance Due Date Last Done Comments FIT-DNA Q 3 years 1998 FIT/FOBT Q 1 year 1998 Flex Sig/CT Colonography Q 5 years 1998 DTAP/TDAP/TD VACCINES (1 - Tdap) 06/21/2002 06/20/20 02, 03/14/1999 ZOSTER VACCINE (1 of 2) 12/07/2003 RSV VACCINE (60+ or ) (1 - Risk 60-74 years 1-dose series) 2013 DIABETES ANNUAL FOOT EXAM 05/10/2020 05/10/2019 DIABETES ANNUAL RETINAL EXAM 07/04/202010/2018, 06/15/2019, 06/15/2019, Additional history exists LDL CHOLESTEROL ANNUAL 10/10/2020 0, 12/13/2018, 07/11/2018, Additional history exists DIABETES HBA1C Q 6 MONTHS 11/02/20202019, 02/01/2020, 08/12/2019, Additional history exists BREAST CANCER SCREENING 02/28/2021 02/29/20 20, 12/21/2018, 03/15/2013, Additional history exists DIABETES MICROALBUMIN ANNUAL SCREEN 2021 2020, 12/26/2019, 12/13/2018, Additional history exists OSTEOPOROSIS SCREENING 04/04/2024 04/04/2019 INFLUENZA VACCINE (#1) 2025 0, 06/12/2019, 07/18/2018, Additional history exists COLORECTAL SCREENING 02/20/2029 02/20/2019, 02/21/20 19 Colorectal Cancer Screening 02/20/2029 Medical Devices Implanted Type Area Commercial Credit Analyst Device Identifier Shelf Expiration Date Model / Serial / Lot Cement Simplex Hvisc 6194-1-010 - [id number] Implanted:Qty: 1 on 03/21/2019 by Eloy Ramirez MD at [facility] Cement Left: Knee LOPEZ- [employer] 09/02/2020 6194-1-010 / / [id number] Cement Simplex Hvisc 6194-1-010 - [id number] Implanted:03/21 by Eloy Ramirez MD at [facility] (Quantity not on file) Cement Left: Knee [employer]OPEZ- [employer] 09/02/2020 6194-1-010 / / [id number] Comp Tib Attn Fb Cmnt Sz5 1506-70-005 - [id number] Implanted:Qty: 1 on 03/21/2019 by Eloy Ramirez MD at [facility] Knee Left: Knee [employer]- [employer] 01/01/2029 [id number] / / [id number] Ins Attn Fb Cr Sz5 7mm [id number] - [id number] Implanted:Qty: 1 on 03/21/2019 by Eloy Ramirez MD at [facility] Knee Left: Knee [employer] 10/03/2023 [id number] / / [id number] Comp Fem Attn Cr Cmnt Sz5 1504-00-105 - [id number] Implanted:Qty: 1 on 03/21/2019 by Eloy Ramirez MD at [facility] Knee Left: Knee [employer] 01/31/2029 [id number] / / [id number] Procedures Procedure Name Priority Date/Time Associated Diagnosis Comments MICROALBUMIN/CREATI NINE RATIO, RANDOM UR Routine 2020 8:27 AM LOKIE DRIVER Chronic kidney disease (CKD) stage G3b/A1, moderately decreased glomerular filtration rate (GFR) between 30-44 mL/min/1.73 square meter and albuminuria creatinine ratio less than 30 mg/g ([facility]) MAMMO SCREEN BILAT W OR WO CAD Routine 02/29/2020 1:35 PM CDT Breast cancer screening by mammogram LIPID PANEL Routine 10/10/2019 3:25 PM LOKIE DRIVER Hyperlipidemia, unspecified hyperlipidemia type HEMOGLOBIN A1C Routine 08/12/2019 7:36 AM LOKIE DRIVER Type 2 diabetes mellitus with stage 3 chronic kidney disease, without long-term current use of insulin ([facility]) HM DIABETES EYE EXAM Routine 05/24/2019 XR DEXA BONE DENSITY AXIAL 1 OR MORE SITES Routine 04/04/2019 1:35 PM CDT Postmenopausal from Last 3 Months or Most Recently Relevant to Health Maintenance Results * MICROALBUMIN/CREATININE RATIO, RANDOM UR (2020 8:27 AM LOKIE DRIVER) MICROALBUMIN, URINE <1.2 No Reference Range mg/dL 2020 9:13 AM LOKIE DRIVER [facility] CREATININE, URINE 97.1 29.0 - 226.0 mg/dL 2020 9:13 AM LOKIE DRIVER [facility] Comment:Reference Range vari es with fluid intake and diet. MICROALBUMIN/C REAT RATIO, UR <12.4 <25.0 mg/g 2020 9:13 AM LOKIE DRIVER [facility] Urine URINE SPECIMEN OBTAINED BY CLEAN CATCH PROCEDURE / Unknown Collection / Unknown 2020 8:27 AM LOKIE DRIVER 2020 8:27 AM LOKIE DRIVER [facility] - 2020 9:13 AM LOKIE DRIVER Condition Microalbumin/Creat ratio Normal Males <17 Normal Females <25 Microalbuminuria Males 17-299 Microalbuminuria Females 25-299 Overt proteinuria >=300 us Irma Maurer NP URINE ORDERABLES Fin al Result [facility] [id number] [address] [place] [address] * MAMMO SCREEN BILAT W OR WO CAD (02/29/2020 1:35 PM CDT) Anatomical Region Laterality Modality Breast Bilateral Mammography Narrative 02/29/2020 4:30 PM CDT Bilateral Mammogram Reason for Exam: [...] follow-up Overall Assessment: Birads Category 1: Negative us Zeus Ohara MD MAMMO ORDERABLES Final Re sult * LIPID PANEL (10/10/2019 3:25 PM LOKIE DRIVER) CHOLESTEROL 153 <200 mg/dL 10/11/2019 8:48 PM [facility] TRIGLYCERIDE 139 <150 mg/dL 10/11/2019 8:48 PM LOKIE DRIVER [facility] HDL 46 40 - 59 mg/dL 10/11/2019 8:48 PM [facility] LDL CALCULATED 79 <100 mg/dL 10/11/2019 8:48 PM [facility] NON-HDL CHOLESTEROL 107 <130 mg/dL 10/11/2019 8:48 PM [facility] Blood Collection / Unknown 10/10/2019 3:25 PM LOKIE DRIVER 10/11/2019 7:50 PM LOKIE DRIVER [facility] - 10/11/2019 8:48 PM LOKIE DRIVER TOTAL CHOLESTEROL mg/dL Desirable <200 Borderline high [...] Guidelines Reference Ranges for Lipid Panels (NCEP/AMA) Jonathan BUSTAMANTE CHEMISTRY ORDERABLES Final Re sult [facility]3] [facility] CLIA# [id number] [address] [place] [address] * (ABNORMAL) HEMOGLOBIN A1C (08/12/2019 7:36 AM LOKIE DRIVER) HEMOGLOBIN A1C 6.3(H) <=5.6 % 08/12/2019 7:55 AM LOKIE DRIVER [facility] EST. AVG GLUCOSE, A1C 134 mg/dL 08/12/2019 7:55 AM LOKIE DRIVER [facility] Blood Venipuncture / Unknown 08/12/2019 7:36 AM LOKIE DRIVER 08/12/2019 7:36 AM LOKIE DRIVER Narrative [facility] - 08/12/2019 7:55 AM LOKIE DRIVER HGB A1C INTERPRETATION NORMAL: <5.7% PRE-DIABETES: 5.7 - 6.4% DIABETES: 6.5% OR GREATER us Zeus Ohara MD CHEMISTRY ORDERABLES Rekha l Result [facility] CLIA # [id number] [address] [place] [address] * DIABETES EYE EXAM (05/24/2019) us Abstract Spg Provider HEALTH MAINTENANCE Final R esult * XR DEXA BONE DENSITY AXIAL 1 OR MORE SITES (04/04/2019 1:35 PM CDT) Anatomical Region Laterality Modality Digital Radiogra phy 04/04/2019 1:35 PM CDT Impressions 04/04/2019 7:12 PM CDT IMPRESSION: Normal bone density NOF guidelines recommend consideration of FDA-approved medical therapies in patients with FRAX determined 10-year probabilities of hip/major osteoporosis-related fractures equal or greater than 3%/20% respectively. Consider assessing fracture risk using the FRAX analysis tool for guidance of clinical management available online at www.shef.ac.uk/FRAX/. Enter mySociety for Select DXA and the Femoral Neck [...] year Procedure Note Junior Barahona, DO - 04/04/2019 DEXA Evaluation of the Lumbar Spine and [...] for fracture - f/u in 1 year IMPRESSION: Normal bone density NOF guidelines recommend consideration of FDA-approved medical therapies in patients with FRAX determined 10-year probabilities of hip/major osteoporosis-related fractures equal or greater than 3%/20% respectively. Consider assessing fracture risk using the FRAX analysis tool for guidance of clinical management available online at www.shef.ac.uk/FRAX/. Enter [employer]ociety for Select DXA and the Femoral Neck BMD value. Jonathan BUSTAMANTE DIAGNOSTIC IMAGING ORDERABLES Final Result from Last 3 Months or Most Recently Relevant to Health Maintenance Insurance MEDICARE PART A AND B [employer] Medicare Part D Advance Directives For more information, please contact: [phone] * Full Code (Latest Code Status on File) Date Activated Date Inactivated Comments 03/21/2019 1:08 PM 03/23/2019 8:07 PM * Full Code Date Activated Date Inactivated Comments 03/21/2019 7:33 AM 03/21/2019 1:08 PM * Full Code Date Activated Date Inactivated Comments 03/21/2019 5:59 AM 03/21/2019 7:32 AM * Full Code Date Activated Date Inactivated Comments 02/20/2019 1:42 PM 02/20/2019 4:52 PM Care Teams Motor Overhauler Relationship Specialty Start Date End Date Non-Staff, Physician NO ADDRESS ON FILE PCP - General 06/27/20
--- OUTSIDE RECORDS SUMMARY | 2025-05-01 11:49 | XMS_ITS | Encounter Summary ---
Author Organization [facility] Address [address] [place] [address] Care Team Providers Care Sign Builder Supervisor Name Role Phone Non-Staff, Physician Primary Care Provider Unava ilable Reason for Referral * Radiology Services (Routine) - Closed Specialty Diagnoses / Procedures Referred By Contac t Referred To Contact Radiology Diagnoses Encounter for screening mammogram for malignant neoplasm of breast Procedures MAMMO SCREEN BILAT W OR WO CAD Kory Garza, MALT ROASTER [address] [address] Phone: tel: fax: [facility] [place] [address] [address] Phone: tel: fax: Referral ID Status Reason Start Date Expiration Date V isits Requested Visits Authorized [id number] Closed [facility] View CTS to Schedule 12/23/2020 01/23/2022 1 1 Encounter Details Date Type Department Care Team (Latest Contact Info) Description 12/23/2020 Ancillary Orders [facility] Centralized Scheduling [address] [facility] [address] [place] [address] Kory Garza, MALT ROASTER [address] [place] [phone] Encounter for screening mammogram for malignant neoplasm of breast Social History Tobacco Use Types Packs/Day Years Used Date Smoking Tobacco: Former Cigarettes Smokeless Tobacco: Never Comments:i pack would last f or several months at a time Alcohol Use Standard Drinks/Week Comments No 0 (1 standard drink = 0.6 oz pur e alcohol) Comments No Sex and Gender Information Value Date Recorded Sex Assigned at Not on file 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:58 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 No / Unsure 12/26/2020 1:59 PM CDT documented as of this encounter Plan of Treatment Scheduled Orders Name Type Priority Associated Diagnoses Orde r Schedule MAMMO SCREEN BILAT W OR WO CAD Imaging Routine Encounter for screening mammogram for malignant neoplasm of breast 1 Occurrences starting 12/23/2020 until 06/25/2022 documented as of this encounter Visit Diagnoses Diagnosis Encounter for screening mammogram for malignant neoplasm of breast Other screening mammogram documented in this encounter Additional Health Concerns Assessment Noted Time PHQ-9 Depression Total Score: 1 04/28/20 19 10:00 AM CDT documented as of this encounter Care Teams Sign Builder Supervisor Relationship Specialty Start Date End Date Non-Staff, Physician NO ADDRESS ON FILE PCP - General 06/27/20 documented as of this encounter
--- OUTSIDE RECORDS SUMMARY | 2025-05-01 11:49 | XMS_ITS | Encounter Summary ---
Author Organization [facility] Address [address] [place] [address] Care Team Providers Care Ultrasound Technologist Sonographer Name Role Phone Non-Staff, Physician Primary Care Provider Unava ilable Encounter Details Date Type Department Care Team (Late st Contact Info) Description 07/10/2013 Ancillary Orders [facility] Emergency Medicine [address] [place] [address] Cash Wiley MD [address] [place] [address] Rib pain on left side (Primary Dx) Social History Tobacco Use Types Packs/Day Years Used Date Smoking Tobacco: Former Alcohol Use Standard Drinks/Week Comments No 0 (1 standard drink = 0.6 oz pur e alcohol) Comments No Sex and Gender Information Value Date Recorded Sex Assigned at Not on file 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:58 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 Gender Identity Not on file Sexual Orientation Not on file Occupation Industry Job Start Date Job End Date Not on file Not on file Not on file Not on file documented as of this encounter Plan of Treatment Not on file documented as of this encounter Results * XR CHEST PA AND LATERAL (07/10/2013 8:16 PM CDT) Anatomical Region Laterality Modality Chest Computed Radiogr aphy 07/10/2013 8:16 PM CDT Narrative 07/11/2013 9:58 AM CDT PROCEDURE CHEST, 2 views 10 July 2013 COMPARISON Current: PA and lateral chest 2006 hours Prior: no previous studies available for comparison DESCRIPTION Frontal view of the chest shows no infiltrate or atelectasis and the cardiomediastinal silhouette appears normal. Surgical clips are noted upper quadrant of the abdomen, likely status post cholecystectomy. On the lateral view, no infiltrate or spine sign is seen. Costophrenic angles are normal posteriorly. IMPRESSION essentially normal chest views Procedure Note Timoteo Motnoya MD - 07/11/2013 PROCEDURE CHEST, 2 views 10 July 2013 COMPARISON Current: PA and lateral chest 2006 hours Prior: no previous studies available for comparison DESCRIPTION Frontal view of the chest shows no infiltrate or atelectasis and the cardiomediastinal silhouette appears normal. Surgical clips are noted upper quadrant of the abdomen, likely status post cholecystectomy. On the lateral view, no infiltrate or spine sign is seen. Costophrenic angles are normal posteriorly. IMPRESSION essentially normal chest views us Cash Wiley MD DIAGNOSTIC IMAGING [facility] Final Result documented in this encounter Visit Diagnoses Diagnosis Rib pain on left side- Primary Chest pain, unspecified Rib pain on left side Chest pain, unspecified documented in this encounter Care Teams Ultrasound Technologist Sonographer Relationship Specialty Start Date End Date Non-Staff, Physician NO ADDRESS ON FILE PCP - General 06/27/20 documented as of this encounter
--- OUTSIDE RECORDS SUMMARY | 2025-05-01 11:49 | XMS_ITS | Encounter Summary ---
Author Organization [facility] Address [address] [place] [address] Care Team Providers Care Lab Aide Name Role Phone Non-Staff, Physician Primary Care Provider Unava ilable Encounter Details Date Type Department Care Team (Late st Contact Info) Description 05/09/2012 Ancillary Orders [facility] General Laboratory Services [place] [address] [place] [address] Sick Social History Tobacco Use Types Packs/Day Years Used Date Smoking Tobacco: Former Alcohol Use Standard Drinks/Week Comments No 0 (1 standard drink = 0.6 oz pur e alcohol) Comments No Sex and Gender Information Value Date Recorded Sex Assigned at Not on file 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:58 AM 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 Gender Identity Not on file Sexual Orientation Not on file documented as of this encounter Plan of Treatment Not on file documented as of this encounter Procedures Procedure Name Priority Date/Time Associated Diagnosis Comments HEMOGLOBIN A1C Routine 05/09/2012 7:37 PM CDT Sick [ICD-9-CM] LIPID PANEL Routine 05/09/2012 7:37 PM CDT Sick [ICD-9-CM] BASIC METABOLIC PANEL Routine 05/09/2012 7:37 PM CDT Sick [ICD-9-CM] documented in this encounter Results * (ABNORMAL) LIPID PANEL (05/09/2012 7:37 PM CDT) CHOLESTEROL 188 130 - 200 mg/dL 05/11/2012 12:01 PM CDT [facility] TRIGLYCERIDE 145 30 - 200 mg/dL 05/11/2012 12:01 PM CDT [facility] HDL 46 35 - 80 mg/dL 05/11/2012 12:01 PM CDT [facility] LDL CALCULATED 113(H) 0 - 100 mg/dL 05/11/2012 12:01 PM CDT [facility] Blood specimen (specimen) 05/09/2012 7:37 PM CDT 05/11/2012 11:26 AM CDT [facility] LABORATORY [facility] - 05/11/2012 12:01 PM CDT TOTAL CHOLESTEROL mg/dL Desirable <200 Borderline high 200-239 High >=240 TRIGLYCERIDES mg/dL Normal <150 Borderline high 150-199 High 200-499 Very high >=500 HDL CHOLESTEROL mg/dL Low <40 Normal 40-60 Desirable >60 LDL CHOLESTEROL mg/dL Optimal <100 Low risk 100-129 Borderline high 130-159 High 160-189 Very high >=190 Based on AHA/NCEP Guidelines Gretta Rodrigues DIVORCE MEDIATOR CHEMISTRY ORDERABLES Final Resu lt [facility] CLIA # [id number] [address] [place] [address] * (ABNORMAL) BASIC METABOLIC PANEL (05/09/2012 7:37 PM CDT) SODIUM 142 136 - 145 mmol/L 05/09/2012 9:53 PM CDT [facility] [employer] [facility] POTASSIUM 3.9 3.5 - 5.1 mmol/L 05/09/2012 9:53 PM CDT [facility] [employer] [facility] CHLORIDE 107 98 - 107 mmol/L 05/09/2012 9:53 PM CDT [facility] [employer] [facility] CO2 33(H) 21 - 32 mmol/L 05/09/2012 9:53 PM CDT [facility] CALCIUM 9.2 8.5 - 10.1 mg/dL 05/09/2012 9:53 PM CDT [facility] BUN 11 7 - 18 mg/dL 05/09/2012 9:53 PM CDT [facility] CREATININE 1.00 0.60 - 1.30 mg/dL 05/09/2012 9:53 PM CDT [facility] GLUCOSE 114(H) 74 - 106 mg/dL 05/09/2012 9:53 PM CDT [facility] GFR 57(L) >=60 mL/min/1.7 3 sq meter 05/09/2012 9:53 PM CDT [facility] GFR, 69 >=60 mL/min/1.7 3 sq meter 05/09/2012 9:53 PM CDT [facility] Blood specimen (specimen) 05/09/2012 7:37 PM CDT 05/09/2012 9:12 PM CDT Narrative [facility] - 05/09/2012 9:53 PM CDT eGFR has not been validated for use [...] Based on National Kidney Disease Education Program Gretta Rodrigues [facility] CHEMISTRY ORDERABLES Final Resu lt [facility] CLIA # [id number] [address] [address] * (ABNORMAL) HEMOGLOBIN A1C (05/09/2012 7:37 PM CDT) HEMOGLOBIN A1C 6.6(H) 4.5 - 6.2 % 05/09/2012 10:06 PM CDT [facility] EST. AVG GLUCOSE, A1C 143 mg/dL 05/09/2012 10:06 PM CDT [facility] LABORATORY SERVICES [facility] Blood specimen (specimen) 05/09/2012 7:37 PM CDT 05/09/2012 9:12 PM CDT Gretta Rodrigues DIVORCE MEDIATOR CHEMISTRY ORDERABLES Final Resu lt [facility] CLIA # [id number] [address] [place] [address] documented in this encounter Visit Diagnoses Diagnosis Sick Other unknown and unspecified cause of morbidity or mortality documented in this encounter Care Teams Lab Aide Relationship Specialty Start Date End Date Non-Staff, Physician NO ADDRESS ON FILE PCP - General 06/27/20 documented as of this encounter
--- OUTSIDE RECORDS SUMMARY | 2025-05-01 11:49 | XMS_ITS | Encounter Summary ---
Author Organization [facility] Address [address] [place] [address] Care Team Providers Care Telecommunications Facility Examiner Name Role Phone Non-Staff, Physician Primary Care Provider Unava ilable Encounter Details Date Type Department Care Team (Latest Contact Info) Description 03/31/2021 Ancillary Orders [facility] Orthopedics - Orthopedic [facility] [address] [place] [phone] Eloy Ramirez MD [address] [place] [phone] Status post left knee replacement Social History Tobacco Use Types Packs/Day Years Used Date Smoking Tobacco: Former Cigarettes Smokeless Tobacco: Never Comments:i pack would last f or several months at a time Alcohol Use Standard Drinks/Week Comments No 0 (1 standard drink = 0.6 oz pur e alcohol) Comments No Sex and Gender Information Value Date Recorded Sex Assigned at Not on file 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 No / Unsure 03/31/2021 9:11 AM CDT documented as of this encounter Plan of Treatment Not on file documented as of this encounter Results * XR KNEE 3 VW LEFT (03/31/2021 9:24 AM CDT) Anatomical Region Laterality Modality Lower Extremity Computed Radiogr aphy Narrative 04/01/2021 12:30 PM CDT AP, lateral and sunrise view x-rays of the left knee were reviewed. There is a total knee arthroplasty in place. There is no obvious evidence of fracture or dislocation. The patella is seated nicely within the trochlea. There is a little bit of calcification seen laterally along the femoral condyle but no obvious fractures. us Eloy Ramirez MD DIAGNOSTIC IMAGING ORDERABLES Final Result documented in this encounter Visit Diagnoses Diagnosis Status post left knee replacement Status post left knee replacement documented in this encounter Additional Health Concerns Assessment Noted Time PHQ-9 Depression Total Score: 1 04/28/20 19 10:00 AM CDT documented as of this encounter Care Teams Telecommunications Facility Examiner Relationship Specialty Start Date End Date Non-Staff, Physician NO ADDRESS ON FILE PCP - General 06/27/20 documented as of this encounter
--- OUTSIDE RECORDS SUMMARY | 2025-05-01 11:49 | XMS_ITS | Encounter Summary ---
Author Organization [facility] Address [address] [place] [address] Care Team Providers Care Doctor Of Optometry Name Role Phone Non-Staff, Physician Primary Care Provider Unava ilable Reason for Referral * Outpatient Services (Routine) - Closed Specialty Diagnoses / Procedures Referred By Contaugusto beck Referred To Contact Diagnoses Other screening mammogram Procedures MAMMO SCREENING BILAT Mirella Mcwilliams, REVERBERATORY SKIMMER [address] [place] [address] Phone: tel: fax: Referral ID Status Reason Start Date Expiration Date Visits Re quested Visits Authorized [id number] Closed 09/14/2011 09/13/2012 1 1 [facility] Encounter Details Date Type Department Care Team (Late st Contact Info) Description 09/14/2011 Ancillary Orders [facility] External Read [address] [place] [address] Mirella Mcwilliams, REVERBERATORY SKIMMER [address] [place] [address] Other screening mammogram Social History Tobacco Use Types Packs/Day Years Used Date Smoking Tobacco: Former Alcohol Use Standard Drinks/Week Comments No 0 (1 standard drink = 0.6 oz pur e alcohol) Comments No Sex and Gender Information Value Date Recorded Sex Assigned at Not on file 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:58 AM INSPECTOR GENERAL Gender Identity Not on file Sexual Orientation Not on file documented as of this encounter Plan of Treatment Not on file documented as of this encounter Results * MAMMO SCREENING BILAT (09/14/2011 8:25 AM INSPECTOR GENERAL) Anatomical Region Laterality Modality Breast Bilateral Mammography Narrative 09/15/2011 3:38 PM INSPECTOR GENERAL Bilateral Mammogram Reason for Exam: Screening Comparison: Comparison is made with the prior exam(s) dated 03.09.0710.01.10 Findings: Bilateral CC and MLO views were obtained. This examination was reviewed with the aid of a computer-aided detection system(CAD). The breast tissue density is average. No significant new findings since the prior mammogram(s). Procedure Note Paris Balderas MD - 09/15/2011 Bilateral Mammogram Reason for Exam: Screening Comparison: Comparison is made with the prior exam(s) dated 03.09.0710.01.10 Findings: Bilateral CC and MLO views were obtained. This examination was reviewed with the aid of a computer-aided detectionsystem(CAD). The breast tissue density is average. No significant new findings since the prior mammogram(s). us External Provider [facility] MAMMO ORDERABLES Final Res ult documented in this encounter Visit Diagnoses Diagnosis Other screening mammogram documented in this encounter Care Teams Doctor Of Optometry Relationship Specialty Start Date End Date Non-Staff, Physician NO ADDRESS ON FILE PCP - General 06/27/20 documented as of this encounter
--- OUTSIDE RECORDS SUMMARY | 2025-05-01 11:49 | XMS_ITS | Encounter Summary ---
Author Organization [facility] Address [address] [place] [address] Phone Care Team Providers Care Conduit Helper Name Role Phone Kory Garza Primary Care Provider [phone] Encounter Details Date Type Department Care Team (Late st Contact Info) Description 05/17/2020 Orders Only [facility] [employer], [facility] [address] [place] [address] Decreased renal function Social History Tobacco Use Types Packs/Day Years Used Date Smoking Tobacco: Never Assessed Comments Unknown Sex and Gender Information Value Date Recorded Sex Assigned at Not on file Legal Sex Female 11:54 AM EDT Gender Identity Not on file Sexual Orientation Not on file documented as of this encounter Plan of Treatment Upcoming Encounters Date Type Department Care Team (Late st Contact Info) Description 12/20/2025 10:10 AM CDT Office Visit [facility] [employer], [facility] [address] [place] [address] Tabitha Cohen MD [address] [place] [address] documented as of this encounter Visit Diagnoses Diagnosis Decreased renal function documented in this encounter Care Teams Conduit Helper Relationship Specialty Start Date End Date Kory Garza ARNP [address] [place] [id number] PCP - General Nurse Practitioner 12/03/23 documented as of this encounter
--- OUTSIDE RECORDS SUMMARY | 2025-05-01 11:49 | XMS_ITS | Encounter Summary ---
Author Organization [facility] Address [address] [place] [address] Care Team Providers Care Satellite Project Site Monitor Name Role Phone Non-Staff, Physician Primary Care Provider Unava ilable Encounter Details Date Type Department Care Team (Late st Contact Info) Description 03/20/2013 Ancillary Orders [facility] General Laboratory Services [place] [address] [place] [address] Sick Social History Tobacco Use Types Packs/Day Years Used Date Smoking Tobacco: Former Alcohol Use Standard Drinks/Week Comments No 0 (1 standard drink = 0.6 oz pur e alcohol) Comments No Sex and Gender Information Value Date Recorded Sex Assigned at Not on file 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 Gender Identity Not on file Sexual Orientation Not on file Occupation Industry Job Start Date Job End Date Not on file Not on file Not on file Not on file documented as of this encounter Plan of Treatment Not on file documented as of this encounter Procedures Procedure Name Priority Date/Time Associated Diagnosis Comments LYME ANTIBODY SCREEN W/REFLEX CONFIRMATION Routine 03/20/2013 6:42 PM CDT Sick [ICD-9-CM] EHRLICHIA ANTIBODY Routine 03/20/2013 6: 42 PM CDT Sick [ICD-9-CM] GENE JUANN SPOTTED FEVER AB IGG/IGM Routine 03/20/2013 6:42 PM CDT Sick [ICD-9-CM] HEMOGLOBIN A1C Routine 03/20/2013 6:42 PM CDT Sick [ICD-9-CM] LIPID PANEL Routine 03/20/2013 6:42 PM CDT Sick [ICD-9-CM] COMPREHENSIVE METABOLIC PANEL Routine 03/20/2013 6:42 PM CDT Sick [ICD-9-CM] documented in this encounter Results * LYME ANTIBODY SCREEN W/REFLEX WB (03/20/2013 6:42 PM CDT) [facility] LYME ANTIBODY (EIA) Negative Negative 03/23/2013 10:35 PM CDT [facility] Comment: Serologic response to B. burgdorferi infection is not detected, but cannot rule out early infection during which low or undetectable antibody levels to B. burgdorferi may be present. If clinically indicated, a new serum specimen should be submitted in 7-14 days. Test Performed by: [place] [address] Paradichlorobenzene Tender: Juan M Wayne III, M.D. Blood specimen (specimen) Venipuncture - Lab Collect / Unknown 03/20/2013 6:42 PM CDT 03/20/2013 9:18 PM CDT Yovani BUSTAMANTE CHEMISTRY ORDERABLES Final R esult [facility] CLIA# [id number] [address] [place] [address] * GENE JUANN SPOTTED FEVER AB IGG/IGM RFLX TO TITER (03/20/2013 6:42 PM CDT) [facility] RMSF IGG <1:64 <1:64 03/24/2013 12:23 AM CDT [facility] Comment:No antibody detected . RMSF IGM <1:64 <1:64 03/24/2013 12:23 AM CDT [facility] [employer] [facility] Comment: No antibody detected. Test Performed by: [place] [address] Paradichlorobenzene Tender: Juan M Wayne III, M.D. Blood specimen (specimen) Venipuncture - Lab Collect / Unknown 03/20/2013 6:42 PM CDT 03/20/2013 9:18 PM CDT us Yovani BUSTAMANTE CHEMISTRY ORDERABLES Final R esult Performing Organization Address [facility] de Phone Number [facility] CLIA# [id number] [address] [place] [address] * (ABNORMAL) LIPID PANEL (03/20/2013 6:42 PM CDT) CHOLESTEROL 186 130 - 200 mg/dL 03/20/2013 9:48 PM CDT [facility] [place] TRIGLYCERIDE 100 30 - 200 mg/dL 03/20/2013 9:48 PM CDT [facility] HDL 50 35 - 80 mg/dL 03/20/2013 9:48 PM CDT [facility] [employer] [facility] LDL CALCULATED 116(H) 0 - 100 mg/dL 03/20/2013 9:48 PM CDT [facility] [employer] [facility] Blood specimen (specimen) Venipuncture - Lab Collect / Unknown 03/20/2013 6:42 PM CDT 03/20/2013 9:18 PM CDT Narrative [facility] [employer] [facility] [place] - 03/20/2013 9:48 PM CDT TOTAL CHOLESTEROL mg/dL Desirable <200 Borderline high 200-239 High >=240 TRIGLYCERIDES mg/dL Normal <150 Borderline high 150-199 High 200-499 Very high >=500 HDL CHOLESTEROL mg/dL Low <40 Normal 40-60 Desirable >60 LDL CHOLESTEROL mg/dL Optimal <100 Low risk 100-129 Borderline high 130-159 High 160-189 Very high >=190 Based on AHA/NCEP Guidelines us Yovani BUSTAMANTE CHEMISTRY ORDERABLES Final R esult Performing Organization Address City/[facility]/ZIP Co de Phone Number [facility] CLIA # [id number] [address] [place] [address] * (ABNORMAL) HEMOGLOBIN A1C (03/20/2013 6:42 PM CDT) [facility] HEMOGLOBIN A1C 7.3(H) 4.5 - 6.2 % 03/20/2013 10:53 PM CDT [facility] EST. AVG GLUCOSE, A1C 163 mg/dL 03/20/2013 10:53 PM CDT [facility] Blood specimen (specimen) Venipuncture - Lab Collect / Unknown 03/20/2013 6:42 PM CDT 03/20/2013 9:18 PM CDT Yovani BUSTAMANTE CHEMISTRY ORDERABLES Final R esult Performing Organization Address City/[facility] Co de Phone Number [facility] CLIA # [id number] [address] [place] [address] * EHRLICHIA ANTIBODY (03/20/2013 6:42 PM CDT) [facility] EHRLICHIA AB IGG <1:64 <1:64 titer 03/23/2013 11:54 PM CDT [facility] Comment: Analyte Specific Reagent: This test was developed and its performance characteristics determined by [facility]. It has not been cleared or approved by the U.S. Food and Drug Administration. Test Performed by: [place] [address] Paradichlorobenzene Tender: Juan M Wayne III, M.D. A.PHAGOCYTOPH IGG <1:64 <1:64 titer 03/23/2013 11:54 PM CDT [facility] Comment: Analyte Specific Reagent: This test was developed and its performance characteristics determined by [facility]. It has not been cleared or approved by the U.S. Food and Drug Administration. Blood specimen (specimen) Venipuncture - Lab Collect / Unknown 03/20/2013 6:42 PM CDT 03/20/2013 9:18 PM CDT us Yovani BUSTAMANTE CHEMISTRY ORDERABLES Final R esult [facility] CLIA# [id number] [facility] [place] [address] * (ABNORMAL) COMPREHENSIVE METABOLIC PANEL (03/20/2013 6:42 PM CDT) SODIUM 139 136 - 145 mmol/L 03/20/2013 9:48 PM CDT [facility] [place] POTASSIUM 4.6 3.5 - 5.1 mmol/L 03/20/2013 9:48 PM CDT [facility] [place] CHLORIDE 103 98 - 107 mmol/L 03/20/2013 9:48 PM CDT [facility] [place] CO2 28 21 - 32 mmol/L 03/20/2013 9:48 PM CDT [facility] [place] CALCIUM 9.1 8.5 - 10.1 mg/dL 03/20/2013 9:48 PM CDT [facility] [place] BUN 19(H) 7 - 18 mg/dL 03/20/2013 9:48 PM CDT [facility] [place] CREATININE 1.10 0.60 - 1.30 mg/dL 03/20/2013 9:48 PM CDT [facility] [place] GLUCOSE 101 74 - 106 mg/dL 03/20/2013 9:48 PM CDT [facility] [place] TOTAL PROTEIN 8.5(H) 6.4 - 8.2 g/dL 03/20/2013 9:48 PM CDT [facility] [place] ALBUMIN 4.4 3.4 - 5.0 g/dL 03/20/2013 9:48 PM CDT [facility] [place] BILIRUBIN TOTAL 0.3 0.2 - 1.0 mg/dL 03/20/2013 9:48 PM CDT [facility] [place] ALKALINE PHOSPHATASE 107 50 - 136 U/L 03/20/2013 9:48 PM CDT [facility] [place] AST 11(L) 15 - 37 U/L 03/20/2013 9:48 PM CDT [facility] [place] ALT 31 30 - 65 U/L 03/20/2013 9:48 PM CDT [facility] [place] GFR 51(L) >=60 mL/min/1.7 3 sq meter 03/20/2013 9:48 PM CDT [facility] GFR, 62 >=60 mL/min/1.7 3 sq meter 03/20/2013 9:48 PM CDT [facility] Blood specimen (specimen) Venipuncture - Lab Collect / Unknown 03/20/2013 6:42 PM CDT 03/20/2013 9:18 PM CDT Narrative [facility]AT[facility] [place] - 03/20/2013 9:48 PM CDT eGFR has not been validated [...] Based on National Kidney Disease Education Program Yovani BUSTAMANTE CHEMISTRY ORDERABLES Final R esult [facility] [employer] [facility] [id number] [address] [place] [address] documented in this encounter Visit Diagnoses Diagnosis Sick Other unknown and unspecified cause of morbidity or mortality documented in this encounter Care Teams Satellite Project Site Monitor Relationship Specialty Start Date End Date Non-Staff, Physician NO ADDRESS ON FILE PCP - General 06/27/20 documented as of this encounter
--- OUTSIDE RECORDS SUMMARY | 2025-05-01 11:49 | XMS_ITS | Encounter Summary ---
Author Organization [facility] [employer] [facility] Address [address] [place] [address] Phone Care Team Providers Care Turntable Engineer Name Role Phone Greg Kory HALLMAN Primary Care Provider [phone] Reason for Visit * Reason Comments Med Refill Encounter Details Date Type Department Care Team (Late st Contact Info) Description 08/30/2020 Refill [place] [facility], [facility] [address] [place] [address] Irma Maurer NP [address] [place] [address] Chronic kidney disease, stage 3b Social History Tobacco Use Types Packs/Day Years Used Date Smoking Tobacco: Never Smokeless Tobacco: Never Alcohol Use Standard Drinks/Week Comments Yes 0 (1 standard drink = 0.6 oz pur e alcohol) occasionally Comments Unknown Sex and Gender Information Value Date Recorded Sex Assigned at Not on file Legal Sex Female 11:54 AM EDT Gender Identity Not on file Sexual Orientation Not on file COVID-19 Exposure Response Date Recorded In the last month, have you been in contact with someone who was confirmed or suspected to have Coronavirus / COVID-19? No / Unsure 08/28/2020 1:31 PM EST documented as of this encounter Plan of Treatment Upcoming Encounters Date Type Department Care Team (Late st Contact Info) Description 12/20/2025 10:10 AM CDT Office Visit [place] [facility] [address] [place] [address] Tabitha Cohen MD [address] [place] [address] documented as of this encounter Visit Diagnoses Diagnosis Chronic kidney disease, stage 3b documented in this encounter Care Teams Turntable Engineer Relationship Specialty Start Date End Date Kory Garza ARNP [address] [address] PCP - General Nurse Practitioner 12/03/23 documented as of this encounter
--- OUTSIDE RECORDS SUMMARY | 2025-05-01 11:49 | XMS_ITS | Encounter Summary ---
Author Organization [facility] Address [address] [place] [address] Care Team Providers Care Vice President Of Software Development Name Role Phone Non-Staff, Physician Primary Care Provider Unava ilable Reason for Referral * Outpatient Services (Routine) - Closed Specialty Diagnoses / Procedures Referred By Debra beck Referred To Contact Radiology Diagnoses Other screening mammogram Procedures MAMMO DIGITAL SCREEN BILAT Mirella Mcwilliams FNP [address] [place] [address] Phone: tel: fax: [facility] [place] [address] [facility] [address] [place] [address] Phone: tel: fax: Referral ID Status Reason Start Date Expiration Date Visits Re quested Visits Authorized [id number] Closed 03/01/2013 04/01/2014 1 1 Encounter Details Date Type Department Care Team (Latest Contact Info) Description 03/01/2013 Ancillary Orders [facility] Centralized Scheduling [address] [facility] [address] [place] [address] Mirella Mcwilliamsne, [employer] SHINGLE INSPECTOR [address] [place] [address] Other screening mammogram (Primary Dx) Social History Tobacco Use Types Packs/Day Years Used Date Smoking Tobacco: Former Alcohol Use Standard Drinks/Week Comments No 0 (1 standard drink = 0.6 oz pur e alcohol) Comments No Sex and Gender Information Value Date Recorded Sex Assigned at Not on file 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:58 AM SURVEYOR Gender Identity Not on file Sexual Orientation Not on file documented as of this encounter Plan of Treatment Not on file documented as of this encounter Results * MAMMO DIGITAL SCREEN BILAT (03/15/2013 4:15 PM CDT) Anatomical Region Laterality Modality Breast Bilateral Mammography Narrative 03/22/2013 7:19 AM CDT Bilateral Mammogram Reason for Exam: Screening Comparison: 9.30.09, 12.6.11 ([facility]) 2.3.12 ([facility]) Findings: Bilateral CC and MLO views were obtained. This examination was reviewed with the aid of a computer-aided detection system(CAD). The breast tissue density is average. No significant new findings since the prior mammogram(s). Procedure Note Paris Balderas MD - 03/22/2013 Bilateral Mammogram Reason for Exam: Screening Comparison: 9.30.09, 12.6.11 ([facility]) 2.3.12 ([facility]) Findings: Bilateral CC and MLO views were obtained. This examination was reviewed with the aid of a computer-aided detectionsystem(CAD). The breast tissue density is average. No significant new findings since the prior mammogram(s). us Mirella Mendes Elizabethyanna Michi [employer] SHINGLE INSPECTOR MAMMO ORDERABL ES Final Result documented in this encounter Visit Diagnoses Diagnosis Other screening mammogram- Primary Other screening mammogram documented in this encounter Care Teams Vice President Of Software Development Relationship Specialty Start Date End Date Non-Staff, Physician NO ADDRESS ON FILE PCP - General 06/27/20 documented as of this encounter
--- NOTE | 2025-05-01 11:56 | W.ED.NAVMDI ---
HPI - Nausea/Vomiting/Diarrhea General: Chief complaint: Nausea/Vomiting/Diarrhea Stated complaint: high hr, dizzy, nausea, fatigue Time Seen by Provider: 05/01/25 11:43 Source: patient Mode of arrival: ambulatory Limitations: no limitations History of Present Illness: 69-year-old female here states that she has been feeling quite nervous and anxious. States her mom is currently admitted here she is coming up here to visit her states she is in the process of dying. She states this has been causing her anxiety she not been eating or drinking much states she started to have palpitations along with nausea. She denies any fevers denies any chest pain denies any headache. Associated nausea: Yes Associated symtoms: Reports anxiety, nausea and palpitations; Denies chest pain or headache(s) Related Data Home Medications ?Medication ?Instructions ?Recorded ?Confirmed zinc 50 mg tablet 50 mg PO DAILY 12/20/20 03/27/25 ascorbic acid (vitamin C) 1,000 mg 1,000 mg PO DAILY 01/09/21 03/27/25 tablet cholecalciferol (vitamin D3) 25 25 mcg PO DAILY 01/09/21 03/27/25 mcg (1,000 unit) capsule mecobalamin (vitamin B12) 5,000 1,000 mcg PO DAILY 01/09/21 03/27/25 mcg disintegrating tablet dulaglutide 0.75 mg/0.5 mL 0.75 mg SUBCUT .weekly 02/03/22 03/27/25 subcutaneous pen injector (Trulicity) amitriptyline 25 mg tablet mg PO 12/18/24 03/27/25 Previous Rx's ?Medication ?Instructions ?Recorded insulin degludec 200 unit/mL (3 See Rx Instructions .Route 08/26/22 mL) subcutaneous pen (Tresiba .COMPLEX #27 mL FlexTouch U-200 insulin) lancets 30 gauge (OneTouch Delica #100 ea 07/26/23 Plus Lancet) ondansetron HCl 4 mg tablet 4 mg PO Q8H PRN nausea and 10/26/23 vomiting 5 days #20 tabs pen needle, diabetic 31 gauge x #100 ea 01/12/2402/16 (BD Ultra-Fine Short Pen Needle) diclofenac sodium 1 % topical gel 2 g topical QID 30 days #100 grams 03/30/24 fluticasone propionate 50 See Rx Instructions intranasal 06/12/24 mcg/actuation nasal DAILY PRN allergy symptoms #16 spray,suspension grams pantoprazole 40 mg tablet,delayed 40 mg PO DAILY #90 tabs 10/05/24 release fluconazole 150 mg tablet 150 mg PO Q3D 9 days #3 tabs 11/14/24 linaclotide 145 mcg capsule See Rx Instructions .Route 01/15/25 (Linzess) .COMPLEX #90 caps empagliflozin 25 mg tablet See Rx Instructions .Route 01/29/25 (Jardiance) .COMPLEX #90 tabs amoxicillin 875 mg-potassium 1 tab PO BID 7 days #14 tabs 02/22/25 clavulanate 125 mg tablet atorvastatin 20 mg tablet 20 mg PO ONCE #90 tabs 04/04/25 cetirizine 10 mg tablet 10 mg PO DAILY 30 days #90 tabs 04/04/25 chlorthalidone 25 mg tablet 25 mg PO DAILY #90 tabs 04/04/25 levothyroxine 50 mcg tablet 50 mcg PO DAILY #90 tabs 04/04/25 ciprofloxacin HCl 250 mg tablet 250 mg PO BID #10 tabs 04/09/25 (Cipro) montelukast 10 mg tablet See Rx Instructions .Route 04/18/25 .COMPLEX #90 tabs Allergies Allergy/AdvReac Type Severity Reaction Status Date / Time Latex, Natural Rubber Allergy Intermediate swelling Verified 05/01/25 11:52 metformin AdvReac Unknown ADR-Vomitin Verified 05/01/25 11:52 g Review of Systems Const: Denies: fever(s), chills, body aches or change in appetite ENMT: Denies: throat pain or dental pain Card: Reports: palpitations; Denies: chest pain Resp: Denies: dyspnea GI: Reports: nausea; Denies: abdominal pain, vomiting or diarrhea Musc: Denies: neck pain or back pain Skin/Breast: Denies: rash Neuro: Denies: headache(s) Psych: Reports: anxiety; Denies: depression PFSH ED PFSH: Medical History Low back pain Vaginal yeast infection Acute bacterial sinusitis Chronic headache Headache due to injury of head and neck Muscle spasm Right elbow pain Group B streptococcal UTI Ganglion cyst Breast tenderness Sternal contusion Cervical sprain Fall down stairs Arthritis of right elbow Arthritis of shoulder region, right Otitis media Eustachian tube disorder Right-sided chest wall pain Right shoulder strain Sprain of elbow, right Fracture of toe of right foot Right hamstring injury Enrolled in chronic care management please do not remove from active Acute UTI Nausea & vomiting Gastroenteritis DDD (degenerative disc disease), cervical Cervical radiculopathy Hypokalemia Hyponatremia Encounter for change or removal of drains Allergic reaction Onychomycosis Thoracic degenerative disc disease Sinusitis, acute maxillary Chronic idiopathic constipation Muscle ache Chronic ear infection Back pain Fungal nail infection Intermittent urinary stream Urinary hesitancy Encounter for annual wellness exam in Medicare patient Diabetic foot Breast cancer screening by mammogram Voiding dysfunction Intertrigo Environmental and seasonal allergies Steatosis of liver Nonalcoholic hepatosteatosis Mixed hyperlipidemia Changing skin lesion right hand, cryotherapy twice at [facility] clinic, no pathology done Abdominal pain Thyroid nodule 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 Hidradenitis suppurativa Fever blister Injury of knee, right Vitamin D deficiency Hypothyroid Goiter Essential (primary) hypertension DM type 2 (diabetes mellitus, type 2) Osteoarthritis Great toe amputee right foot, 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 History of gallbladder disease History of cholelithiasis Surgical History Status post amputation of right great toe S/P tympanostomy tube placement H/O rotator cuff surgery Right shoulder S/P appendectomy Status post left knee replacement S/P cholecystectomy History of hysterectomy History of appendectomy Family History Mother Diabetes Stroke Father , IN HIS EARLY 80'S Cancer UNKNOWN CANCER Sister , PANCREATIC Cancer OTHER SISTER HAD LUNG AND THROAT CANCER STILL LIVING Social History Smoking and tobacco/nicotine status: never used tobacco/nicotine Second hand smoke exposure: No Alcohol intake: never Substance/Drug Use: never Physical Exam Const: COMMON NORMALS: no acute distress, patient oriented x3 and healthy appearing HENMT: COMMON NORMALS: normocephalic and atraumatic HEAD & SCALP: normocephalic and atraumatic Eye: COMMON NORMALS: conjunctivae normal CONJUNCTIVA: Yes conjunctivae normal Neck/C-Spine: COMMON NORMALS: full ROM and supple Chest: COMMONS NORMALS: normal inspection of the chest Resp: COMMON NORMALS: normal respiratory effort, No retractions, No use of accessory muscles and clear to auscultation bilaterally AUSCULTATION: clear to auscultation bilaterally Cardio: COMMON NORMALS: regular rhythm and No murmurs present (Cardio) RATE: tachycardic RHYTHM: regular rhythm GI: COMMON NORMALS: Normal to inspection, nondistended, normoactive bowel sounds present, Soft to palpation, non-tender and no masses PALPATION: Yes Soft to palpation Extremity: COMMON NORMALS: normal to inspection and full ROM Neuro: COMMON NORMALS: patient oriented x3, moves all extremities and no focal motor deficits Psych: COMMON NORMALS: mental status grossly normal, Normal thought process present and cooperative THOUGHT PROCESS: Normal thought process present Skin: COMMON NORMALS: no rashes or lesions noted and no wounds GENERAL SKIN EXAM: no rashes or lesions noted Course Vital Signs: Vital signs: Vital Signs Temperature 98.6 F 05/01/25 11:43 Pulse Rate 92 05/01/25 13:10 Respiratory Rate 16 05/01/25 13:10 Blood Pressure 110/56 05/01/25 13:10 Pulse Oximetry 98 05/01/25 13:10 Oxygen Delivery Me thod Room Air 05/01/25 13:10 MDM - Nausea/Vomiting/Diarrhea Medical Decision Making Patient presents for palpitations likely from some anxiety and stress she has been well-appearing here she feels much improved here blood works normal she stable for discharge follow-up PCP return if worsening. Medical Records I reviewed the patient's medical records. Lab Data I reviewed the patient's lab results. 05/01/25 12:06 05/01/25 12:06 Laboratory Results WBC 12.71 10^3/uL (3.29-11.43) H 05/01/25 12:06 RBC 5.28 10^6/uL (3.85-5.65) 05/01/25 12:06 Hgb 14.60 g/dL (11.27-16.99) 05/01/25 12:06 Hct 45.6 % (36-47) 05/01/25 12:06 MCV 86.4 fl (85-98) 05/01/25 12:06 MCH 27.7 pg (27-33) 05/01/25 12:06 MCHC 32.0 g/dL (30-55) 05/01/25 12:06 RDW 13.5 % (12.1-15.1) 05/01/25 12:06 Plt Count 279 10^3/cmm (157-399) 05/01/25 12:06 MPV 10.9 fL (7.4-10.4) H 05/01/25 12:06 Neut % (Auto) 79.9 % 05/01/25 12:06 Lymph % (Auto) 10.5 % 05/01/25 12:06 [place] % (Auto) 6.9 % 05/01/25 12:06 Eos % (Auto) 2.0 % 05/01/25 12:06 Baso % (Auto) 0.3 % 05/01/25 12:06 Neut # (Auto) 10.15 10^3/uL (1.8-7.7) H 05/01/25 12:06 Lymph # (Auto) 1.3 10^3/uL (0.8-4.8) 05/01/25 12:06 [place] # (Auto) 0.9 10^3/uL (0.2-0.9) 05/01/25 12:06 Eos # (Auto) 0.3 10^3/uL (0.0-0.8) 05/01/25 12:06 Baso # (Auto) 0.0 10^3/uL (0.0-0.1) 05/01/25 12:06 Nucleated RBC % (auto) 0 % 05/01/25 12:06 Nucleated RBCs # 0.0 /100WBC 05/01/25 12:06 Sodium 141 mmol/L (136-145) 05/01/25 12:06 Potassium 3.7 mmol/L (3.5-5.1) 05/01/25 12:06 Chloride 99 mmol/L (98-107) 05/01/25 12:06 Carbon Dioxide 25 mmol/L (22-29) 05/01/25 12:06 Anion Gap 20.7 (5-19) H 05/01/25 12:06 BUN 24 mg/dL (8-23) H 05/01/25 12:06 Creatinine 1.3 mg/dL (0.5-0.9) H 05/01/25 12:06 GFR Calculation Not Reportable 05/01/25 12:06 Glucose 161 mg/dL (65-115) H 05/01/25 12:06 Calculated Osmolality 300 mOsm/kg (285-295) H 05/01/25 12:06 Calcium 10.0 mg/dL (8.5-10.5) 05/01/25 12:06 Magnesium 2.3 mg/dL (1.7-2.3) 05/01/25 12:06 Total Bilirubin 0.6 mg/dL (0.15-1.2) 05/01/25 12:06 AST 15 U/L (0-32) 05/01/25 12:06 ALT 17 U/L (0-33) 05/01/25 12:06 Alkaline Phosphatase 136 U/L (35-105) H 05/01/25 12:06 Total Protein 8.2 g/dL (6.6-8.7) 05/01/25 12:06 Albumin 4.3 g/dL (3.5-5.2) 05/01/25 12:06 Globulin 3.9 g/dL (1.3-4.6) 05/01/25 12:06 TSH 1.68 uIU/mL (0.27-4.20) 05/01/25 12:06 Urine Color Yellow (Yellow) 05/01/25 12:40 Urine Appearance Clear (CLEAR) 05/01/25 12:40 Urine pH 5.5 (5-7) 05/01/25 12:40 Ur Specific [place] 1.036 (1.005-1.030) H 05/01/25 12:40 Urine Protein Negative (Negative) 05/01/25 12:40 Urine Glucose (UA) 2+ (Normal) H 05/01/25 12:40 Urine Ketones Trace (Negative) 05/01/25 12:40 Urine Blood Negative (Negative) 05/01/25 12:40 Urine Nitrate Negative (Negative) 05/01/25 12:40 Urine Bilirubin Negative (Negative) 05/01/25 12:40 Urine Urobilinogen 0.2 mg/dL (Negative) 05/01/25 12:40 Ur Leukocyte Esterase 1+ (Negative) A 05/01/25 12:40 Urine RBC 0-2 /hpf (0-2) 05/01/25 12:40 Urine WBC 11-20 /hpf (0-5) H 05/01/25 12:40 Ur Squamous Epith Cells 0-5 /hpf (0-5) 05/01/25 12:40 Urine Bacteria Trace /hpf (NONE) 05/01/25 12:40 Hyaline Casts 0.40 /lpf 05/01/25 12:40 All radiology interpretation(s) finalized by discharge EKG Data EKG 1: I personally reviewed and interpreted this EKG as follows: EKG interpretation date: 05/01/25 EKG interpretation time: 11:47 Interpretation: sinus tach hr [address] elevation qrs 74 qtc 403 Discharge Plan Discharge Patient Disposition: Home Clinical Impression: Palpitations, Anxiety Condition: Stable Prescriptions: No Action zinc 50 mg tablet 50 mg PO DAILY mecobalamin (vitamin B12) 5,000 mcg tablet,disintegrating 1,000 mcg PO DAILY ascorbic acid (vitamin C) 1,000 mg tablet 1,000 mg PO DAILY cholecalciferol (vitamin D3) 25 mcg (1,000 unit) capsule 25 mcg PO DAILY Trulicity 0.75 mg/0.5 mL pen injector 0.75 mg SUBCUT .weekly fluconazole 150 mg tablet 150 mg PO Q3D 9 Days Qty: 3 0RF diclofenac sodium 1 % gel 2 g topical QID 30 Days Qty: 100 1RF Rx Instructions: apply to single knee, ankle, foot; for foot includes sole/toes/top of foot fluticasone propionate 50 mcg/actuation spray,suspension See Rx Instructions intranasal DAILY PRN (Reason: allergy symptoms) Qty: 16 0RF Rx Instructions: administer into each nostril twice a day for one week then PRN amitriptyline 25 mg tablet PO amoxicillin-pot clavulanate 875-125 mg tablet 1 tab PO BID 7 Days Qty: 14 0RF Tresiba FlexTouch U-200 200 unit/mL (3 mL) insulin pen See Rx Instructions .ROUTE .COMPLEX Qty: 27 0RF Dose Instruction: INJECT 60 UNITS UNDER THE SKIN DAILY Rx Instructions: INJECT 60 UNITS UNDER THE SKIN DAILY (DME) lancets [OneTouch Delica Plus Lancet] 30 gauge misc See Rx Instructions .ROUTE .COMPLEX Qty: 100 0RF Dose Instruction: USE DIRECTED Rx Instructions: USE DIRECTED ondansetron HCl 4 mg tablet 4 mg PO Q8H PRN (Reason: nausea and vomiting) 5 Days Qty: 20 0RF (DME) pen needle, diabetic [BD Ultra-Fine Short Pen Needle] 31 gauge x 5/16 needle See Rx Instructions .ROUTE .COMPLEX Qty: 100 0RF Dose Instruction: USE WITH INSULIN Rx Instructions: USE WITH INSULIN pantoprazole 40 mg tablet,delayed release (DR/EC) 40 mg PO DAILY Qty: 90 3RF Linzess 145 mcg capsule See Rx Instructions .ROUTE .COMPLEX Qty: 90 1RF Dose Instruction: TAKE 1 CAPSULE BY MOUTH DAILY Rx Instructions: TAKE 1 CAPSULE BY MOUTH DAILY Jardiance 25 mg tablet See Rx Instructions .ROUTE .COMPLEX Qty: 90 2RF Dose Instruction: TAKE 1 TABLET BY MOUTH DAILY Rx Instructions: TAKE 1 TABLET BY MOUTH DAILY atorvastatin 20 mg tablet 20 mg PO ONCE Qty: 90 0RF cetirizine 10 mg tablet 10 mg PO DAILY 30 Days Qty: 90 0RF chlorthalidone 25 mg tablet 25 mg PO DAILY Qty: 90 0RF levothyroxine 50 mcg tablet 50 mcg PO DAILY Qty: 90 0RF ciprofloxacin HCl [Cipro] 250 mg tablet 250 mg PO BID Qty: 10 0RF montelukast 10 mg tablet See Rx Instructions .ROUTE .COMPLEX Qty: 90 1RF Dose Instruction: TAKE 1 TABLET (10 MG) BY MOUTH DAILY Rx Instructions: TAKE 1 TABLET (10 MG) BY MOUTH DAILY Discharge Orders: Discharge ED (Routine); Ordered 05/01/25 Ordered By: Pili Mendosa Referrals: SEBASTIAN Garza, NET FINISHER [Primary Care Provider, Family Practice] Discharge Diet: Advance as tolerated Discharge Activity: Resume usual activity Patient Instructions: Heart Palpitations (ED), Anxiety (ED) Print Language: Tuvaluan Coding Level of Care Code ED [place] [employer] As[employer]er for Mariela Carvalho
[2025-05-01 12:13] LABS: Hematocrit 45.6 % (36-47); Hemoglobin 14.60 g/dL (11.27-16.99); Mean Corpuscular HGB Conc 32.0 g/dL (30-55); Mean Corpuscular Hemoglobin 27.7 pg (27-33); Mean Corpuscular Volume 86.4 fl (85-98); Nucleated Red Blood Cells % 0 %; Platelet Count 279 10^3/cmm (157-399); Red Blood Count 5.28 10^6/uL (3.85-5.65); White Blood Count 12.71 10^3/uL (3.29-11.43)
[2025-05-01 12:39] LABS: Alanine Aminotransferase 17 U/L (0-33); Albumin Level 4.3 g/dL (3.5-5.2); Alkaline Phosphatase 136 U/L (35-105); Anion Gap 20.7 (5-19); Aspartate Amino Transferase 15 U/L (0-32); Blood Urea Nitrogen 24 mg/dL (8-23); Calcium 10.0 mg/dL (8.5-10.5); Carbon Dioxide 25 mmol/L (22-29); Chloride 99 mmol/L (98-107); Creatinine Clr Calc Pharmacy 42.6448; Globulin 3.9 g/dL (1.3-4.6); Glucose 161 mg/dL (65-115); Magnesium 2.3 mg/dL (1.7-2.3); Osmolality Calculated 300 mOsm/kg (285-295); Potassium 3.7 mmol/L (3.5-5.1); Sodium 141 mmol/L (136-145); Thyroid Stimulating Hormone 1.68 uIU/mL (0.27-4.20); Total Protein 8.2 g/dL (6.6-8.7)
[2025-05-01] MEDS: LORazepam 1 MG/0.5 ML injection 0.5 MG IVP (12:47)
[2025-05-01] MEDS: ondansetron 2 mg/ML SDV 2 mL 4 MG IVP (12:47)
[2025-05-01 12:55] LABS: Glucose Urine UA 2+ (Normal); Nitrate Urine Negative (Negative)
[2025-05-01 13:00] LABS: Add Urine Microscopic? YES
[2025-05-01 13:10] VITALS: BP 110/56; PULSE 92; RESP 16; O2SAT 98
[2025-05-01 13:17] LABS: Specific Gravity, Urine 1.036 (1.005-1.030)
[2025-05-01 13:47] VITALS: BP 104/57; PULSE 94; RESP 16; O2SAT 94
== END 2025-05-01 13:48 | disposition home or self-care (01) ==
PROVIDERS: Emergency Provider Emergency Medicine; PCP Nurse Practitioner Family
DX: R00.2 Palpitations (principal); F41.9 Anxiety disorder, unspecified; E11.9 Type 2 diabetes mellitus without complications
CPT/HCPCS: 36415; 71045; 80053; 81001; 83735; 84443; 85025; 93005; 96361; 96374; 96375; 99285; J2060; J2405; J7030

== ENCOUNTER → 2025-05-14 15:21 | Outpatient (BNVA) | payer MEDICARE, MEDICAID, SELFPAY | PROVIDERS: PCP Nurse Practitioner Family; Visit Provider Emergency Medicine | DX: S62.632A Displaced fracture of distal phalanx of right middle finger, initial encounter for closed fracture (principal); X58.XXXA Exposure to other specified factors, initial encounter | CPT/HCPCS: 73140 ==

== ENCOUNTER → 2025-05-21 13:46 | Outpatient (BNVA) | payer MEDICARE, MEDICAID, SELFPAY | PROVIDERS: PCP Nurse Practitioner Family; Visit Provider Internal Medicine | DX: R00.2 Palpitations (principal); I10 Essential (primary) hypertension; R07.89 Other chest pain; R00.0 Tachycardia, unspecified; R00.1 Bradycardia, unspecified; I49.3 Ventricular premature depolarization; I49.1 Atrial premature depolarization | CPT/HCPCS: 93246 ==

== ENCOUNTER → 2025-05-22 10:32 | Outpatient (BNVA) | payer MEDICARE, MEDICAID, SELFPAY | PROVIDERS: PCP Nurse Practitioner Family; Visit Provider Nurse Practitioner Family | DX: S62.632A Displaced fracture of distal phalanx of right middle finger, initial encounter for closed fracture (principal); X58.XXXA Exposure to other specified factors, initial encounter | CPT/HCPCS: 73140 ==

== ENCOUNTER → 2025-05-25 14:37 | Outpatient (BNVA) | payer MEDICARE, MEDICAID, SELFPAY | PROVIDERS: PCP Nurse Practitioner Family; Visit Provider Nurse Practitioner Family | DX: N39.0 Urinary tract infection, site not specified (principal) | CPT/HCPCS: 81000 ==

== ENCOUNTER → 2025-06-27 10:04 | Outpatient (BNVA) | payer MEDICARE, MEDICAID, SELFPAY | PROVIDERS: PCP Nurse Practitioner Family; Visit Provider Nurse Practitioner Family | DX: E11.649 Type 2 diabetes mellitus with hypoglycemia without coma (principal); E89.0 Postprocedural hypothyroidism; D44.0 Neoplasm of uncertain behavior of thyroid gland; D44.9 Neoplasm of uncertain behavior of unspecified endocrine gland; Z79.4 Long term (current) use of insulin | CPT/HCPCS: 80048; 80061; 82977; 83036; 83615; 84443; 84450; 84460 ==

== ENCOUNTER 2025-07-03 10:45 | Outpatient (CLI) | payer MEDICARE, MEDICAID, SELFPAY ==
--- NOTE | 2025-07-03 10:50 | MM_ITS ---
WS: [id number] BILATERAL 3D TOMOSYNTHESIS DIGITAL SCREENING MAMMOGRAPHY WITH CAD CLINICAL INFORMATION: SCREENING HISTORY: Screening mammogram. No current complaints. COMPARISON: 2023 TECHNIQUE: Bilateral CC and MLO views. FINDINGS: Scattered fibroglandular densities bilaterally. No suspicious focal mass, asymmetry, calcifications, or architectural distortion. No evidence of malignancy. Incidental punctate calcifications. Vascular calcification. MM/MM scr tomosynthesis [id number] IMPRESSION: DENSITY: There are scattered areas of fibroglandular density. BI-RADS: 2 - Benign. FOLLOW UP: 1 Year Follow-up Recommend return to annual screening mammography.
== END 2025-07-03 10:46 | disposition home or self-care (01) ==
LOC: RAD 10:47
PROVIDERS: PCP Nurse Practitioner Family; Visit Provider Nurse Practitioner Family
DX: Z12.31 Encounter for screening mammogram for malignant neoplasm of breast (principal); R92.323 Mammographic fibroglandular density, bilateral breasts; R92.1 Mammographic calcification found on diagnostic imaging of breast
CPT/HCPCS: 77063; 77067